=== PATIENT | male | born 1940 | race Caucasian/White ===

== ENCOUNTER 2017-12-16 14:53 | Outpatient (CLI) | payer OTHER ==
--- NOTE | 2017-12-18 13:43 | DEXA Report ---
DEXA SCAN: 12/16/2017 CLINICAL INDICATION: Postmenopausal. TECHNIQUE: Dual energy x-ray absorptiometry (DXA) was performed on a [employer] system. Regions measured are the AP spine, femoral neck, and, if needed, forearm. COMPARISON: None. In accordance with the International Society for Clinical Densitometry (ISCD) guidelines, data from previous exams may be reanalyzed using current recommendations and techniques. This is done to allow a more accurate basis for comparison with the current study. FINDINGS Data for the lumbar spine is as follows: REGION BMD (g/cm/cm) T-SCORE Z-SCORE L1 -- -- -- L2 1.229 -0.1 0.0 L3 1.381 1.2 1.3 L4 1.607 3.1 3.2 L2-L4 1.417 1.5 1.6 NOTE: Evaluable vertebrae are used for classification. Data for the hip is as follows: REGION BMD (g/cm/cm) T-SCORE Z-SCORE Neck 0.766 -2.3 -1.3 TOTAL 0.780 -2.2 -1.6 NOTE: The femoral neck or total proximal femur, whichever is lowest, is used for classification. IMPRESSION WHO CLASSIFICATION BASED ON THE INTERNATIONAL REFERENCE STANDARD IS OSTEOPENIA. FRACTURE RISK IS INCREASED. RECOMMENDATION: Patients with diagnosis of osteoporosis or osteopenia should have regular bone mineral density assessment. For those eligible for Medicare, routine testing is allowed once every 2 years. Testing frequency can be increased for patients who have rapidly progressing disease or for those who are receiving medical therapy to restore bone mass. COMMENT World Health Organization (WHO) definitions for osteoporosis and osteopenia: NORMAL BMD: T-score at 1.0 or higher, fracture risk is low. OSTEOPENIA BMD: T-score between 1.0 and -2.5, fracture risk is increased. OSTEOPOROSIS BMD: T-score at 2.5 or lower, fracture risk high. National Osteoporosis Foundation recommends: 1. Obtain adequate dietary calcium (at least 1200 mg per day) and vitamin D (400 -800 international units per day). 2. Participate, as appropriate, in regular weightbearing and muscle- strengthening exercise. 3. Avoid tobacco use and reduce alcohol and caffeine intake. 4. For more detailed information see the website at www.NOF.org. TD: 12/16/2017 17:42 [facility]Josefina
== END 2017-12-16 14:54 | disposition home or self-care (01) ==
LOC: DI 14:53
PROVIDERS: ATTEND Internal Medicine
DX: M85.88 Other specified disorders of bone density and structure, other site (principal)
CPT/HCPCS: 77080

== ENCOUNTER 2018-01-24 11:18 | Outpatient (CLI) | payer OTHER ==
--- NOTE | 2018-01-26 18:14 | MRI Report ---
EXAM: RIGHT SHOULDER MRI WITHOUT CONTRAST EXAM DATE: 01/24/2018 12:29 PM. CLINICAL HISTORY: PAIN IN RIGHT SHOULDER. COMPARISON: None. TECHNIQUE: Multiplanar, multisequence T1-weighted and fluid-sensitive sequences of the shoulder witho ut contrast. Other: None. FINDINGS: Acromioclavicular Region: The acromion is type II. [id number] degenerative change at the joint with osteophytes and joint effusion. Joint space at the upper limits of normal measuring 0.7 cm. Mild thickening and distortion of the joint capsule. The coracoacromial and coracoclavicular ligaments ar e intact. Minimal subacromial/subdeltoid bursal fluid. Glenohumeral Region: No subluxation. No effusion or loose bodies. Shallow partial-thickness cartilage loss and small anterior osteophytes. The glenohumeral ligaments and joint capsule are unremarkable. Bone Marrow: No fracture or bone lesion. Labrum: Deep partial to full-thickness tear at the posterior superior aspect. Partial-thickness under surface tear extends deep to the biceps tendon anchor. Partial-thickness tearing also extends through out the posterior inferior aspect. Musculature/Rotator Cuff: Moderate supraspinatus tendinopathy. Deep partial-thickness intrasubstance and bursal surface tearing at the insertion of the far anterior fibers. This involves at least 50% of the tendon thickness. Shallow partial-thickness articular surface tear at the central to posterior f ibers. This involves a region measuring 1.7 cm in transverse dimension. This involves less than 50% o f the tendon thickness. Mild infraspinatus tendinopathy. Teres minor tendon is intact. Mild subscapularis tendinopathy with minimal partial thickness undersurface tear at the superior fibe rs. No focal muscle edema. Mild fatty atrophy in the teres minor and latissimus dorsi muscles. These are nonspecific and may be due to old injury and are neurogenic. Biceps Tendon: Mild tachycardia with ill-defined linear focus of fluid sensitive hyperintense signal in the substance of the intra-articular portion. Other: The subcutaneous tissues are unremarkable. IMPRESSION: 1. Moderate supraspinatus tendinopathy with deep partial-thickness intrasubstance and bursal surface tear at the insertion of anterior fibers and shallow partial-thickness articular surface tear at the central to posterior fibers. 2. Mild infraspinatus tendinopathy. 3. Mild subscapularis tendinopathy with minimal partial thickness undersurface tear. 4. Mild biceps tendinopathy with possible intrasubstance tear of the intra-articular portion. 5. Deep partial to full-thickness tear posterior superior labrum. Partial-thickness tear extends deep to the biceps tendon anchor (SLAP tear) as well as into the posterior and inferior aspect. 6. Acromioclavicular joint effusion. A component of this may be degenerative versus sequelae of old g rade 1-2 separation. [facility] MUSCULOSKELETAL RADIOLOGY SECTION Referring Provider Line: [phone] SITE ID: [id number]
== END 2018-01-24 11:19 | disposition home or self-care (01) ==
LOC: DI 11:18
PROVIDERS: ATTEND Family Medicine
DX: S43.491A Other sprain of right shoulder joint, initial encounter (principal); S43.431A Superior glenoid labrum lesion of right shoulder, initial encounter; M75.101 Unspecified rotator cuff tear or rupture of right shoulder, not specified as traumatic; M75.81 Other shoulder lesions, right shoulder; M25.411 Effusion, right shoulder

== ENCOUNTER 2018-05-17 09:16 | Outpatient (CLI) | payer OTHER ==
--- NOTE | 2018-05-18 08:31 | MRI Report ---
Reason: RIGHT ANTERIOR/MEDIAL CHEST WALL PAIN Procedure Date: 05/17/2018 Accession Number: [id number] / [id number] Procedure: MRI - Chest W/O CPT Code: FULL RESULT: EXAM: MRI CHEST WITHOUT CONTRAST EXAM DATE: 05/17/2018 10:49 AM CLINICAL HISTORY: RIGHT ANTERIOR/MEDIAL CHEST WALL PAIN. COMPARISON: Right shoulder MRI 01/24/2018. TECHNIQUE: Multisequence, multiplanar MR examination of the right chest wall performed without the use of intravenous contrast. FINDINGS: Bones/joints: No fractures. No osseous lesions. Glenohumeral and acromioclavicular alignment is normal. Moderate acromioclavicular and mild glenohumeral joint osteoarthrosis is unchanged. There is subchondral edema and marginal osteophyte formation at the right sternoclavicular joint. There is a lesser degree of degenerative change at the left sternoclavicular joint. The costochondral articulations are unremarkable. Muscles/tendons: Suboptimal evaluation of the rotator cuff, which was previously evaluated on the 01/24/2018 right shoulder MRI. Partial thickness tearing of the supraspinatus tendon with moderate tendinosis is grossly unchanged. There is moderate to severe atrophy of the teres major muscle with mild atrophy of the teres minor muscle, unchanged. The musculature is otherwise normal in bulk and signal intensity. No muscle strain or tear. Soft tissues: No masses within the right axilla. Normal-appearing lymph nodes are present. No bursitis. 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 IMPRESSION: 1. Moderate to severe teres major muscle atrophy and mild teres minor muscle atrophy. No discrete mass within the right axilla or quadrilateral space. Consider correlation with cervical spine MRI given the presence of multilevel cervical spondylosis, which is incompletely evaluated on this examination. 2. Partial tearing of the supraspinatus tendon is suboptimally evaluated but appears unchanged from the prior right shoulder MRI. 3. Moderate to severe right sternoclavicular joint degenerative changes. Moderate acromioclavicular joint degenerative changes. Mild glenohumeral joint degenerative changes. [facility]
== END 2018-05-17 09:17 | disposition home or self-care (01) ==
LOC: DI 09:16
PROVIDERS: ATTEND Physical Medicine & Rehabilitation
DX: M62.58 Muscle wasting and atrophy, not elsewhere classified, other site (principal); M75.101 Unspecified rotator cuff tear or rupture of right shoulder, not specified as traumatic; M19.011 Primary osteoarthritis, right shoulder; M47.892 Other spondylosis, cervical region
CPT/HCPCS: 71550

== ENCOUNTER 2020-12-27 22:14 | Outpatient (CLI) | payer OTHER | END 2020-12-27 22:15 | disposition EMS.NT | LOC: EMS 22:14 | DX: R42 Dizziness and giddiness (principal) ==

== ENCOUNTER 2021-01-04 16:29 | Outpatient (CLI) | payer OTHER | END 2021-01-04 16:30 | disposition short-term general hospital (02) | LOC: EMS 16:29 | DX: R31.0 Gross hematuria (principal); R53.1 Weakness; R11.0 Nausea; R06.00 Dyspnea, unspecified | CPT/HCPCS: A0425; A0429 ==

== ENCOUNTER 2021-12-23 16:25 | Outpatient (CLI) | payer OTHER | END 2021-12-23 16:26 | disposition EMS.NT | LOC: EMS 16:25 | DX: R53.83 Other fatigue (principal) ==

== ENCOUNTER 2022-09-26 16:26 | Inpatient (IN) | payer OTHER ==
--- NOTE | 2022-09-26 16:37 | ED Physician Documentation ---
PD HPI HEAD INJURY - Stated complaint Stated Complaint: WEAKNESS/LAC/LOST BALANCE - Chief complaint Chief Complaint: Trauma Hd/Nk - History obtained from History obtained from: Patient, EMS - Additional information Additional information: 82-year-old gentleman with history of cardiac ischemic events in December of last year. He states he was not stented. He has a history of A. fib, stroke, TIA, type 2 diabetes, hypertension, hyperlipidemia. He was admitted here in July 2016 and that history and physical was reviewed. He was hypotensive with unexplained lactic acidosis. He was discharged after 4 days, he was noted to have an EF of 25% at the time. He says he has been weak and off balance for the last 2 days give or take. Started to have some chest pressure today and got dizzy trying to have a bowel movement. He notes he has been constipated for the last couple of days. He could not get off the toilet and his went to help him get off the toilet and he kind of crumpled down. He has an abrasion on the left ear from it and he is on Plavix. He has been dyspneic for a couple of days without cough. Denies pedal edema or calf pain. No headache per se. He is reported to be on Plavix. He was noted by EMS to be orthostatic and on time of arrival has received about 600 mL of normal saline IV. Independent history was taken from EMS as he is quite dyspneic, slightly Obfuscating the history. Review of Systems Constitutional: denies: Fever, Chills Nose: denies: Rhinorrhea / runny nose, Congestion Cardiac: reports: Chest pain / pressure. denies: Palpitations Respiratory: reports: Dyspnea. denies: Cough GI: reports: Constipation. denies: Abdominal Pain PD PAST MEDICAL HISTORY - Past Medical History Cardiovascular: Hypertension, High cholesterol Respiratory: None Endocrine/Autoimmune: Type 2 diabetes GI: None : None HEENT: None Psych: Depression, Post traumatic stress disorder, Claustrophobia Musculoskeletal: None Derm: None - Past Surgical History Past Surgical History: Yes General: Hiatal hernia repair Ortho: Hip replacement Cardiovascular: AAA - Present Medications Home Medications: Ambulatory Orders Medication Instructions Recorded Confirmed Alfuzosin HCl [Alfuzosin HCl ER] 10 mg ORAL DAILY 12/31/15 07/08/16 PARoxetine [Paxil] 20 mg ORAL DAILY 12/31/15 07/08/16 Warfarin [Coumadin] 5 mg ORAL HARRISTMODESTO@1400 12/31/15 07/09/16 Warfarin [Coumadin] 7.5 mg ORAL WE@1400 12/31/15 07/09/16 metFORMIN [Glucophage] 1,000 mg ORAL BID 12/31/15 07/08/16 Atorvastatin Calcium 40 mg PO QPM 05/26/16 07/08/16 Niacin [Niacin ER] 500 mg PO DAILY 05/26/16 07/08/16 lisinopriL [Lisinopril] 2.5 mg PO DAILY 05/26/16 07/08/16 Acetaminophen 1,000 mg PO Q6H PRN 07/09/16 07/09/16 oxyCODONE [Roxicodone] 5 mg PO Q6H PRN 07/09/16 07/09/16 - Allergies Allergies/Adverse Reactions: Allergies Allergy/AdvReac Type Severity Reaction Status Date / Time blood thinner unknown name Allergy Unknown Uncoded 09/26/22 16:30 - Social History Does the pt smoke?: No Smoking Status: Never smoker Does the pt drink ETOH?: Yes Does the pt have substance abuse?: No - Immunizations Immunizations are current?: Yes PD ED PE NORMAL - Vitals Vital signs reviewed: Yes - General General: Alert and oriented X 3, No acute distress - HEENT HEENT: PERRL, EOMI - Neck Neck: Supple, no meningeal sign, No bony TTP - Cardiac Cardiac: Other (Heart sounds muffled by respiratory activity) - Respiratory Respiratory: Other (Tachypneic with slightly diminished but overall clear lungs) - Abdomen Abdomen: Non tender - Back Back: No CVA TTP, No spinal TTP - Derm Derm: Normal color, Warm and dry - Extremities Extremities: Other (Trace pitting pedal edema) - Neuro Neuro: Alert and oriented X 3, Normal speech Results - Vitals Vitals: Vital Signs - 24 hr 09/26/22 09/26/22 09/26/22 16:30 16:50 17:18 Temperature 36.5 C Heart Rate 73 75 69 Respiratory 28 H 21 22 Rate Blood Pressure 100/68 122/73 84/63 L O2 Saturation 94 98 96 If not protocol 3 : Oxygen Flow, liters/minute 09/26/22 09/26/22 09/26/22 17:35 17:51 18:21 Temperature Heart Rate 72 70 67 Respiratory 21 21 23 Rate Blood Pressure 101/57 L 100/61 97/68 O2 Saturation 100 100 99 If not protocol 3 3 3 : Oxygen Flow, liters/minute 09/26/22 09/26/22 09/26/22 18:30 19:00 19:30 Temperature Heart Rate 66 77 65 Respiratory 20 18 24 Rate Blood Pressure 94/64 80/61 L 91/75 O2 Saturation 98 100 100 If not protocol 3 3 3 : Oxygen Flow, liters/minute Oxygen O2 Source Nasal cannula - EKG (time done) 1632 Rate: Rate (enter#) (70) Rhythm: NSR (w pvc) [place]: Normal QRS: Low voltage Ischemia: Normal ST segments - Labs Labs: Laboratory Tests 09/26/22 09/26/22 09/26/22 16:42 16:42 16:42 WBC 7.5 RBC 3.85 L Hgb 12.4 L Hct 38.8 L MCV 100.8 H MCH 32.2 H MCHC 32.0 RDW 12.5 Plt Count 125 L MPV 10.0 Neut # (Auto) 6.2 Lymph # (Auto) 0.5 L [place] # (Auto) 0.8 Eos # (Auto) 0.0 Baso # (Auto) 0.0 Absolute Nucleated RBC 0.00 Nucleated RBC % 0.0 VBG pH VBG pCO2 VBG pO2 VBG HCO3 VBG Total CO2 VBG O2 Saturation VBG Base Excess Sodium 135 Potassium 4.2 Chloride 98 L Carbon Dioxide 26 Anion Gap 11.0 BUN 19 Creatinine 1.2 Estimated GFR (MDRD) 58 L Glucose 181 H Lactic Acid Calcium 8.6 Magnesium 1.7 Total Bilirubin 0.7 AST 37 ALT 27 Alkaline Phosphatase 43 Troponin I High Sens 38.6 H* B-Natriuretic Peptide Total Protein 7.1 Albumin 3.7 Globulin 3.4 Albumin/Globulin Ratio 1.1 Nasal Adenovirus (PCR) Nasal B. parapertussis DNA (PCR) Nasal Coronavir 229E PCR Nasal Coronavir HKU1 PCR Nasal Coronavir NL63 PCR Nasal Coronavir OC43 PCR Nasal Enterovir/Rhinovir PCR Nasal Influenza B PCR Nasal Influenza A PCR Nasal Parainfluen 1 PCR Nasal Parainfluen 2 PCR Nasal Parainfluen 3 PCR Nasal Parainfluen 4 PCR Nasal RSV (PCR) Nasal B.pertussis DNA PCR Nasal C.pneumoniae (PCR) Leroy Human Metapneumo PCR Nasal M.pneumoniae (PCR) Nasal SARS-CoV-2 (PCR) 09/26/22 09/26/22 09/26/22 16:42 16:42 16:42 WBC RBC Hgb Hct MCV MCH MCHC RDW Plt Count MPV Neut # (Auto) Lymph # (Auto) [place] # (Auto) Eos # (Auto) Baso # (Auto) Absolute Nucleated RBC Nucleated RBC % VBG pH 7.338 VBG pCO2 46.2 VBG pO2 20.8 L VBG HCO3 24.3 VBG Total CO2 25.7 VBG O2 Saturation 33.5 L VBG Base Excess -1.8 Sodium Potassium Chloride Carbon Dioxide Anion Gap BUN Creatinine Estimated GFR (MDRD) Glucose Lactic Acid 3.5 H* Calcium Magnesium Total Bilirubin AST ALT Alkaline Phosphatase Troponin I High Sens B-Natriuretic Peptide 348 H Total Protein Albumin Globulin Albumin/Globulin Ratio Nasal Adenovirus (PCR) Nasal B. parapertussis DNA (PCR) Nasal Coronavir 229E PCR Nasal Coronavir HKU1 PCR Nasal Coronavir NL63 PCR Nasal Coronavir OC43 PCR Nasal Enterovir/Rhinovir PCR Nasal Influenza B PCR Nasal Influenza A PCR Nasal Parainfluen 1 PCR Nasal Parainfluen 2 PCR Nasal Parainfluen 3 PCR Nasal Parainfluen 4 PCR Nasal RSV (PCR) Nasal B.pertussis DNA PCR Nasal C.pneumoniae (PCR) Leroy Human Metapneumo PCR Nasal M.pneumoniae (PCR) Nasal SARS-CoV-2 (PCR) 09/26/22 09/26/22 16:43 18:45 WBC RBC Hgb Hct MCV MCH MCHC RDW Plt Count MPV Neut # (Auto) Lymph # (Auto) [place] # (Auto) Eos # (Auto) Baso # (Auto) Absolute Nucleated RBC Nucleated RBC % VBG pH VBG pCO2 VBG pO2 VBG HCO3 VBG Total CO2 VBG O2 Saturation VBG Base Excess Sodium Potassium Chloride Carbon Dioxide Anion Gap BUN Creatinine Estimated GFR (MDRD) Glucose Lactic Acid Calcium Magnesium Total Bilirubin AST ALT Alkaline Phosphatase Troponin I High Sens 131.7 H* B-Natriuretic Peptide Total Protein Albumin Globulin Albumin/Globulin Ratio Nasal Adenovirus (PCR) NOT DETECTED Nasal B. parapertussis DNA (PCR) NOT DETECTED Nasal Coronavir 229E PCR NOT DETECTED Nasal Coronavir HKU1 PCR NOT DETECTED Nasal Coronavir NL63 PCR NOT DETECTED Nasal Coronavir OC43 PCR NOT DETECTED Nasal Enterovir/Rhinovir PCR NOT DETECTED Nasal Influenza B PCR NOT DETECTED Nasal Influenza A PCR NOT DETECTED Nasal Parainfluen 1 PCR NOT DETECTED Nasal Parainfluen 2 PCR NOT DETECTED Nasal Parainfluen 3 PCR NOT DETECTED Nasal Parainfluen 4 PCR NOT DETECTED Nasal RSV (PCR) NOT DETECTED Nasal B.pertussis DNA PCR NOT DETECTED Nasal C.pneumoniae (PCR) NOT DETECTED Leroy Human Metapneumo PCR NOT DETECTED Nasal M.pneumoniae (PCR) NOT DETECTED Nasal SARS-CoV-2 (PCR) DETECTED A - Rads (name of study) CT of the head showing remote right parietal MCA infarct and atrophy without acute abnormality Radiology: Final report received, EMP read indepedently CT of the cervical spine demonstrates degenerative changes and multilevel disc disease without trauma Radiology: Final report received, EMP read indepedently 1 cm right upper lobe nodule on CT angio chest, no other significant abnormality. Radiology: Final report received, EMP read indepedently PD Medical Decision Making - ED course ED course: This is an 82-year-old gentleman presents with weakness, hypotension, dyspnea. He appears ill and is tachypneic. That said his lungs are relatively clear albeit a bit diminished. He did have trauma with a scrape on his left ear and he is on Plavix. As such a CT of the head and neck were done without traumatic findings. Given the dyspnea, CT angiography of the chest was done and negative as well. Although he does have a pulmonary nodule. Follow-up for that was advised. Work-up otherwise shows a CBC showing mild microcytic anemia. Normal venous blood gas. Chemistries showing hyperglycemia at 181. Troponin elevated at 38.6 and will repeat. Modestly elevated BNP at 348. Lactic acidosis at 3.5. Respiratory panel positive for COVID. He is very weak and cannot walk and given the above findings will plan to admit. That said currently there are no beds available in the hospital and he is boarding for admission at this time. We will start paxlovid in the interim. However staffing improved And I was able to discuss the case briefly with Dr. Varela before shift change. This is in light of the rising troponin. She feels he can safely be admitted here medically managed given that it is likely type II/demand ischemia. And subsequently spoke with Dr. Islas, the telemetry hospitalist at 7:45 PM for admission. Departure - Departure Disposition: 66 [facility] DC/Xfer Clinical Impression: Weakness, Lactic acidosis, COVID, Pulmonary nodule, NSTEMI (non-ST elevated myocardial infarction) Head injury Qualifiers: Encounter type: initial encounter Qualified Code(s): S09.90XA - Unspecified injury of head, initial encounter Dyspnea Qualifiers: Dyspnea type: shortness of breath Qualified Code(s): R06.02 - Shortness of breath Hypotension Qualifiers: Hypotension type: other hypotension type Qualified Code(s): I95.89 - Other hypotension Condition: Serious Comments: On the CAT scan of the chest he had a 1 cm right upper lobe pulmonary nodule. Talk with your doctor about repeat imaging to assess.
[2022-09-26] MEDS ORDERED: iohexoL-300 100 ML VIAL ONE (16:44)
[2022-09-26 16:47] LABS: BASOPHILS % (AUTO) 0.4 %; HCT - HEMATOCRIT 38.8 % (42.0-52.0); HGB - HEMOGLOBIN 12.4 g/dL (14.0-18.0); LYMPHOCYTES # (AUTO) 0.5 10^3/uL (1.5-3.5); LYMPHOCYTES % (AUTO) 6.1 %; MEAN CORPUSCULAR HEMOGLOBIN 32.2 pg (27.0-31.0); MEAN CORPUSCULAR VOLUME 100.8 fL (80.0-94.0); MONOCYTES # (AUTO) 0.8 10^3/uL (0.0-1.0); MONOCYTES % (AUTO) 10.1 %; NEUTROPHILS # (AUTO) 6.2 10^3/uL (1.5-6.6); NEUTROPHILS % (AUTO) 82.9 %; PLT - PLATELET COUNT 125 10^3/uL (130-450); RED BLOOD COUNT 3.85 10^6/uL (4.70-6.10); RED CELL DISTRIBUTION WIDTH 12.5 % (12.0-15.0); WHITE BLOOD COUNT 7.5 x10^3/uL (4.8-10.8)
[2022-09-26 16:54] LABS: VBG PH 7.338 (7.31-7.41)
[2022-09-26 16:55] LABS: VBG BASE EXCESS -1.8 mmol/L (-2 - +2); VBG HCO3 24.3 mmol/L (23-28); VBG OXYGEN SATURATION 33.5 % (60-80); VBG PCO2 46.2 mmHg (41-51); VBG PO2 20.8 mmHg (25-47); VBG TOTAL CO2 25.7 mmol/L (24-29)
[2022-09-26 16:59] LABS: ALBUMIN 3.7 g/dL (3.2-5.5); ALBUMIN/GLOBULIN RATIO 1.1 (1.0-2.2); BILIRUBIN,TOTAL 0.7 mg/dL (0.2-1.0); CALCIUM 8.6 mg/dL (8.5-10.3); CREATININE 1.2 mg/dL (0.6-1.2); MAGNESIUM 1.7 mg/dL (1.7-2.8); POTASSIUM 4.2 mmol/L (3.5-5.0); TOTAL PROTEIN 7.1 g/dL (6.7-8.2)
[2022-09-26] MEDS ORDERED: SODIUM CHLORIDE 0.9% 1,000 ML IV STA (17:10)
[2022-09-26 17:39] LABS: CORONAVIRUS 229E-RESP PCR NOT DETECTED; CORONAVIRUS HKU1-RESP PCR NOT DETECTED; CORONAVIRUS NL63-RESP PCR NOT DETECTED; CORONAVIRUS OC43-RESP PCR NOT DETECTED
[2022-09-26 17:40] LABS: B. PARAPERTUSSIS- RESP PCR PAN NOT DETECTED; B. PERTUSSIS- RESP PCR PANEL NOT DETECTED; C. PNEUMONIAE- RESP PCR PANEL NOT DETECTED; HUMAN METAPNEUMOVIRUS NOT DETECTED; INFLUENZA A- RESP PCR PANEL NOT DETECTED; INFLUENZA B - RESP PCR PANEL NOT DETECTED; M. PNEUMONIAE- RESP PCR PANEL NOT DETECTED; PARAINFLUENZA VIRUS 1 NOT DETECTED; PARAINFLUENZA VIRUS 2 NOT DETECTED; PARAINFLUENZA VIRUS 3 NOT DETECTED; PARAINFLUENZA VIRUS 4 NOT DETECTED; RHINOVIRUS/ENTEROVIRUS NOT DETECTED; RSV- RESP PCR PANEL NOT DETECTED; SARS-CoV-2 -RESP PCR PANEL DETECTED
--- NOTE | 2022-09-26 18:20 | CT Report ---
PROCEDURE: HEAD WO INDICATIONS: head inj TECHNIQUE: Noncontrast 4.5 mm thick angled axial sections acquired from the foramen magnum to the vertex. For r adiation dose reduction, the following was used: automated exposure control, adjustment of mA and/or kV according to patient size. COMPARISON: 05/25/2016 FINDINGS: Image quality: Excellent. CSF spaces: Basal cisterns are patent. No extra-axial fluid collections. Ventricles are normal in size and shape. Brain: No midline shift. No intracranial masses or hemorrhage. There is cerebral atrophy. Remote in farcts involving the right hemisphere in an MCA distribution are seen. Skull and face: Calvarium and visualized facial bones are intact, without suspicious lesions. Sinuses: Visualized sinuses and mastoids are clear. IMPRESSION: 1. No acute intracranial abnormality. 2. Remote right parietal lobe infarcts in an MCA distribution. 3. Diffuse cerebral atrophy. Reviewed by: Edgar Miramontes on 09/26/2022 6:19 PM [facility] Approved by: Edgar Miramontes on 09/26/2022 6:19 PM [facility] Station ID: [id number]
--- NOTE | 2022-09-26 18:24 | CT Report ---
PROCEDURE: CERVICAL SPINE WO INDICATIONS: head inj TECHNIQUE: Noncontrast 3 mm thick sections acquired from the skull base to the T4 level. Sagittal and coronal r eformats were then constructed. For radiation dose reduction, the following was used: automated exp osure control, adjustment of mA and/or kV according to patient size. COMPARISON: None. FINDINGS: Image quality: Excellent. Bones: No fractures or dislocations. Visualized superior ribs are intact. Multilevel degenerative changes and degenerative disc disease. Soft tissues: Prevertebral soft tissues are normal in thickness. No paravertebral hematomas. 1 cm n odule in the right upper lobe anteromedially. See separately dictated CT of the chest. IMPRESSION: 1. No acute traumatic abnormality of the cervical spine. 2. 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 Reviewed by: Edgar Miramontes on 09/26/2022 6:23 PM [facility] Approved by: Edgar Miramontes on 09/26/2022 6:23 PM [facility] Station ID: [id number]
--- NOTE | 2022-09-26 18:30 | CT Report ---
PROCEDURE: ANGIO CHEST W/WO INDICATIONS: Dyspnea, PE protocol CONTRAST: 80mL Omni 300 TECHNIQUE: After the administration of intravenous contrast, 2 mm axial images were acquired from the pulmonary apices to the posterior costophrenic angles during the arterial phase. In addition, 1 mm lung kernel and 5 mm soft tissue kernel reconstructions were performed. 3-dimensional coronal oblique maximum int ensity projection (MIP) reformats, 8 mm axial MIP, and 5 mm coronal and sagittal MPR reformats were t hen performed through the thorax. For radiation dose reduction, the following was used: automated exp osure control, adjustment of mA and/or kV according to patient size. COMPARISON: None FINDINGS: Image quality: Excellent. Pulmonary arteries: Pulmonary arteries are normal in size, and demonstrate no intraluminal filling d efects to suggest central pulmonary embolism. Aorta: The aorta is not opacified but has a normal caliber. The aorta has diffuse atherosclerotic alejandra cifications. Lungs and pleura: Lungs are clear. 1 cm nodule in the right upper lobe anteromedially series 6 image 99. No pleural effusions or pneumothorax. Central and peripheral airways are patent. Mediastinum: Heart size is normal, without pericardial effusion bibasilar atelectasis.. No mediasti nal or hilar adenopathy. Thoracic aorta is normal in caliber and enhancement. Esophagus is normal i n caliber, without hiatal hernia. Bones and chest wall: No suspicious bony lesions. There is a remote compression fracture of L2. Rib s and thoracic spine appear intact throughout. No axillary or supraclavicular adenopathy. The thyro id is normal in size and there are no incidental findings. Abdomen: Visualized upper abdominal solid organs appear normal in the early arterial phase of enhanc ement. IMPRESSION: 1. No acute traumatic abnormality of the chest. 2. 1 cm nodule in the right upper lobe anteromedially. If high risk, recommend PET/CT, otherwise akira mmend follow-up CT in 3 months. Reviewed by: Edgar Miramontes on 09/26/2022 6:29 PM PST Approved by: Edgar Miramontes on 09/26/2022 6:29 PM PST Station ID: [id number]
[2022-09-26] MEDS ORDERED: NIRMATRELVIR/RITONAVIR PREPACK PO STA (18:41)
[2022-09-26] MEDS ORDERED: ASPIRIN 325 MG TABLET PO STA (19:24)
[2022-09-26] MEDS ORDERED: ENOXAPARIN 100 MG/ML SYRINGE SUBQ STA (19:24)
[2022-09-26] MEDS ORDERED: ALBUTEROL NEB 2.5 MG/3 ML INH STA (19:54)
--- NOTE | 2022-09-26 20:15 | HISTORY & PHYSICAL EXAMINATION ---
Chief Complaint - Chief Complaint Chief Complaint: fall, chest pressure, shortness of breath History of Present Illness - Admitted From Admitted From:: home - History Obtained From History obtained from: patient - History of Present Illness HPI Comment/Other: Mr Khan is an 82 yo M with hx CAD, CHF (per report EF 25% in 2016), HLD. Presents to ER with c/o weakness, unable to stand from using bathroom. Feeling dizzy and lightheaded with chest pressure earlier today. Pt denies any chest pain at this time, reports some chest discomfort with deep inspiration. States that he has been feeling progressively short of breath over the past 2-3 days, worse with activity. Denies fevers, chills, cough, sputum production. Denies sick contacts. Reports he has been vaccinated against COVID. Does not use home O2. Pt reports he was taken off of coumadin years ago, unsure why he was on it. He does not take ASA or plavix. States he was advised to take tylenol only. Denies any history of bleeding complications or renal disease. History - Past Medical History Cardiovascular: reports: Hypertension, High cholesterol Respiratory: reports: None GI: reports: None : reports: None HEENT: reports: None Psych: reports: Depression, Post traumatic stress disorder, Claustrophobia Musculoskeletal: reports: None Derm: reports: None MRSA Hx?: No - Past Surgical History General: reports: Hiatal hernia repair Ortho: reports: Hip replacement Cardiovascular: reports: AAA Meds/Allgy - Home Medications Home Medications: Ambulatory Orders Medication Instructions Recorded Confirmed Alfuzosin HCl [Alfuzosin HCl ER] 10 mg ORAL DAILY 12/31/15 07/08/16 PARoxetine [Paxil] 20 mg ORAL DAILY 12/31/15 07/08/16 Warfarin [Coumadin] 5 mg ORAL SUMOTUTHFRSA@1400 12/31/15 07/09/16 Warfarin [Coumadin] 7.5 mg ORAL WE@1400 12/31/15 07/09/16 metFORMIN [Glucophage] 1,000 mg ORAL BID 12/31/15 07/08/16 Atorvastatin Calcium 40 mg PO QPM 05/26/16 07/08/16 Niacin [Niacin ER] 500 mg PO DAILY 05/26/16 07/08/16 lisinopriL [Lisinopril] 2.5 mg PO DAILY 05/26/16 07/08/16 Acetaminophen 1,000 mg PO Q6H PRN 07/09/16 07/09/16 oxyCODONE [Roxicodone] 5 mg PO Q6H PRN 07/09/16 07/09/16 - Allergies Allergies/Adverse Reactions: Allergies Allergy/AdvReac Type Severity Reaction Status Date / Time blood thinner unknown name Allergy Unknown Uncoded 09/26/22 16:30 Review of Systems - Constitutional Constitutional: reports: Fatigue, Weakness. denies: Fever, Chills - Cardiovascular Cariovascular: denies: Palpitations, Chest pain (chest pressure), Edema, Syncope - Respiratory Respiratory: reports: SOB at rest, SOB with exertion. denies: Cough, Sputum production, Wheezing - Gastrointestinal Gastrointestinal: reports: Constipation. denies: Abdominal pain, Nausea, Vomiting - Neurological Neurological: reports: General weakness - All Other Systems All Other Systems: reports: Reviewed and negative Exam - Vital Signs Reviewed Vital Signs: Yes Vital Signs: Vital Signs x48h Temp Pulse Resp BP Pulse Ox O2 Flow Rate 09/26/22 19:30 65 24 91/75 100 3 09/26/22 19:00 77 18 80/61 L 100 3 09/26/22 18:30 66 20 94/64 98 3 09/26/22 18:21 67 23 97/68 99 3 09/26/22 17:51 70 21 100/61 100 3 09/26/22 17:35 72 21 101/57 L 100 3 09/26/22 17:18 69 22 84/63 L 96 3 09/26/22 16:50 75 21 122/73 98 09/26/22 16:30 36.5 C 73 28 H 100/68 94 - Physical Exam General Appearance: positive: Mild distress Eyes Bilateral: positive: Normal inspection ENT: positive: ENT inspection nml Neck: positive: Nml inspection Respiratory: positive: Other (unable to complete resp exam via telemedicine, pt w mild resp distress and able to speak in full sentences, no audible wheezing) Skin: positive: Color nml, No rash Extremities: positive: No pedal edema (per patient) Neurologic/Psychiatric: positive: Oriented x3, Motor nml, Mood/affect nml Conclusion/Plan - Lab Results Lab results reviewed: Yes Fish Bones: 09/26/22 16:42 09/26/22 16:42 - Other Other Results/Comments: NSTEMI -History of systolic CHF, EF 25% on echo 2016, reportedly ischemic event last year did not require PCI -ER physician has consulted kiln burner Dr Varela, suspect demand ischemia in setting of hypotension, acute infection, recommend ASA and anticoagulation -EKG NSR no ST-T changes -Pt received Lovenox therapeutic dose in ER, continue -ASA 325 mg administered in ER, continue -Echo, ordered *Pt states he has been advised to take Tylenol and avoid ASA/Plavix - rec further consultation with his kiln burner at the [facility] regarding antiplatelet therapy COVID 19 infection -CTA neg for PE, no evidence of infiltrate/consolidation, no pulm vasc congestion -O2 sats 100% on 3 L NC - wean off as tolerated -DuoNebs PRN -Supportive care Lactic acidosis -In setting of hypotension at admission, improved with IV fluids -Hx lactic acidosis unknown etiology in 2016 -Trend labs *Pt home med rec is pending, he is unaware of his home meds has requested his to bring updated list Code status: DNR, verified with patient no intubation or CPR Core Measures - Anticipated LOS I expect patient to be DC'd or transferred within 96 hours.: Yes - DVT/VTE - Prophylaxis VTE/DVT Device ordered at admit?: Yes - AMI - Statin at Admit Aspirin Prescribed on Admit: Yes Telemedicine Consult Details - Provider Location & Consult Time Telemedicine consultation conducted via videoconferencing?: Yes
[2022-09-26] MEDS ORDERED: ONDANSETRON 4 MG/2 ML VIAL IVP PRN (20:29)
[2022-09-26] MEDS ORDERED: SODIUM CHLORIDE FLUSH 0.9% 10 ML SYRINGE IVP PRN (20:29)
[2022-09-26] MEDS ORDERED: iohexoL-300 100 ML VIAL IVP ONE (20:33)
[2022-09-27] MEDS: HYDROmorphone 0.5 MG/0.5 ML SYRINGE IVP PRN ×2 (01:17→05:43)
[2022-09-27] MEDS: SODIUM CHLORIDE FLUSH 0.9% 10 ML SYRINGE IVP SCH ×4 (01:17→23:32)
[2022-09-27 05:13] LABS: BASOPHILS % (AUTO) 0.3 %; HCT - HEMATOCRIT 35.5 % (42.0-52.0); HGB - HEMOGLOBIN 11.3 g/dL (14.0-18.0); LYMPHOCYTES # (AUTO) 0.8 10^3/uL (1.5-3.5); MEAN CORPUSCULAR HEMOGLOBIN 32.4 pg (27.0-31.0); MEAN CORPUSCULAR HGB CONC 31.8 g/dL (32.0-36.0); MEAN CORPUSCULAR VOLUME 101.7 fL (80.0-94.0); MEAN PLATELET VOLUME 10.2 fL (7.4-11.4); MONOCYTES # (AUTO) 0.8 10^3/uL (0.0-1.0); MONOCYTES % (AUTO) 13.5 %; NEUTROPHILS # (AUTO) 4.3 10^3/uL (1.5-6.6); NEUTROPHILS % (AUTO) 71.9 %; PLT - PLATELET COUNT 111 10^3/uL (130-450); RED BLOOD COUNT 3.49 10^6/uL (4.70-6.10); RED CELL DISTRIBUTION WIDTH 12.8 % (12.0-15.0)
[2022-09-27 05:23] LABS: CALCIUM 8.2 mg/dL (8.5-10.3); CREATININE 1.1 mg/dL (0.6-1.2); POTASSIUM 3.7 mmol/L (3.5-5.0)
[2022-09-27] MEDS: ENOXAPARIN 100 MG/ML SYRINGE SUBQ SCH ×2 (07:27→18:54)
[2022-09-27] MEDS: ACETAMINOPHEN 325 MG TABLET PO PRN ×3 (10:22→18:53)
[2022-09-27] MEDS ORDERED: DEXAMETHASONE 20 MG/5 ML VIAL IVP ONE (10:43)
[2022-09-27] MEDS ORDERED: REMDESIVIR 100MG VIAL 200 MG in SODIUM CHLORIDE 0.9% 250 ML IV ONE ×2 (11:00→13:00)
[2022-09-27 11:05] LABS: INR 1.2 (0.8-1.2); PT - PROTHROMBIN TIME 13.5 secs (9.9-12.6)
[2022-09-27] MEDS ORDERED: DEXAMETHASONE 4 MG/ML VIAL IVP ONE (13:00)
--- NOTE | 2022-09-27 13:13 | PROVIDER PROGRESS NOTE ---
Assessment/Plan - Problem List (1) NSTEMI (non-ST elevated myocardial infarction) Assessment/Plan: Records were reviewed. This patient has a Hx of systolic CHF, EF 25% on Echo in 2016. He had an WI last year, did not undergo angio or did not require PCI by angio. He was on Plavix. He did have recent chest pain and dyspnea. His labs are all reviewed. Troponins continue to increase: 38>> 131>> 266 this a.m. The ER EKG showed NSR, low voltage and no ST or T wave changes. EKG repeated today (which I interpreted) shows NSR, the same low voltage and new symmetric anterolateral T wave inversions consistent with an acute anterolateral WI. Plan: He was put on Lovenox therapeutic dose at admission, will continue this for another day ASA 325 mg administered in ER, will now continue 1 baby aspirin daily. Continue Plavix if he was on that, awaiting reconciled med list Continue his statin We will check lipids and treat per guidelines Hope to continue beta-allison but his BP is low, and med list has not yet been reconciled, from the OR Echo ordered, but we have no Echo service here until Friday of next week (today is Friday). Because of the patient's active COVID infection, he is not a candidate to be transferred for coronary angiogram currently. I will try to reach out to his fountain supervisor to confirm that he did have an angiogram in 2020 and whether another angiogram would benefit him. Will try to obtain the angiogram report done at OR in [place] in 2021 I discussed this entire plan with patient, and daughter and son-in-law were at bedside and the (2) Acute respiratory failure with hypoxia He was dyspneic at home. In the ER last night, he was desaturating to 85% on room air, per Dr Godfrey report to me, but that was not documented. His CTA was neg for PE, no evidence of infiltrate/consolidation, no pulm vasc congestion. He has never been told he has COPD or emphysema, despite his lung exam sounding tight. But he is COVID positive O2 sats were better on 3 L NC. Overnight he has needed that increased to be on 4 L O2 Plan: Continue supplemental O2 Continue any hand held inhaler Will treat the underlying Dx (3) COVID 19 pneumonia Plan: Isolation has been ordered Remdesivir to continue Decadron 6 mg IV daily to continue Mucinex for pulmonary toilet Continue IS (4) Chronic systolic heart failure As per history with Echo from 2015 showing EF of 25%. He also remembered that when he had the angiogram in 2021, his EF was about 30% Plan: Avoid over hydration Continue with his usual CHF meds, holding parameters if low BP Echo ordered, but we have no Echo service here until Friday of next week (today is Friday). (5) Fall at home He could not get off the toilet and his went to help him get off the toilet and he kind of crumpled down. He has an abrasion on the left ear from it. He was noted by EMS to be orthostatic and on time of arrival has received about 600 mL of normal saline IV. Plan: We will continue to monitor orthostatic vital signs, and treat the causes (6) Orthostatic hypotension He was noted by EMS to be orthostatic and by time of arrival had 600 cc iv fluids given. Since admission, syst blood pressures have been in the 90s to 100 Plan: Will continue to give slow IV hydration with NS, watching I's and O's carefully for pulmonary edema Will follow orthostatic vital signs daily Meds that can drop his blood pressure will have holding parameters. Will start PT and OT probably tomorrow, if orthostasis has improved. He uses a walker all the time, he reported (7) DM According to his chart records, he is a diabetic, takes metformin at home, by old med list. Plan: We will change his cardiac diet to a cardiac and diabetic diet Will order hypoglycemia protocol, glucose fingerstick checks and sliding scale insulin coverage and obtain his A1c (8) Lactic acidosis Resolved today after IV fluids Probably from hypotension at admission. He also has a Hx of lactic acidosis unknown etiology in 2016 - Current Meds Current Meds: Current Medications Generic Name Dose Route Start Last Admin Trade Name Freq PRN Reason Stop Dose Admin Acetaminophen 650 mg 09/26/22 20:29 09/27/22 10:22 Acetaminophen 325 Mg Tablet PO 650 mg Q4HR PRN Administration Pain 1 to 4, or Fever Enoxaparin Sodium 100 mg 09/27/22 07:00 09/27/22 07:27 Enoxaparin 100 Mg/Ml Syringe SUBQ 100 mg Q12H CATE Administration Hydromorphone HCl 0.2 mg 09/27/22 00:42 09/27/22 05:43 Hydromorphone 0.5 Mg/0.5 Ml Syringe IVP 0.2 mg Q4H PRN Administration PAIN Sodium Chloride 10 ml 09/27/22 01:00 09/27/22 07:28 Sodium Chloride Flush 0.9% 10 Ml Syringe IVP 10 ml 0100,0900,1700 CATE Administration - Lab Result Fish Bone Diagrams: 09/27/22 04:53 09/27/22 04:53 - EKG Results EKG Interpreted Independently: Yes EKG Comparison: Changed from prior EKG EKG Findings: Normal sinus rhythm, rate 64, low voltage EKG, borderline first-degree block, IVCD, symmetrical inverted anterolateral T wave inversions, these are new since EKG from yesterday. - Additional Planning My Orders: My Active Orders 09/27/22 10:44 Telemetry- [RC] Q4HR 09/27/22 11:50 EKG - Electrocardiogram [RC] .ONCE 09/27/22 13:00 Remdesivir 100Mg Vial [Veklury] 200 mg Sodium Chloride 0.9% [Normal Saline 0.9%] 250 ml IV ONCE 09/28/22 05:00 BMP - BASIC METABOLIC PANEL [CHEM] DAILYLAB CBC - COMP BLD CT W/AUTO DIFF [HEME] DAILYLAB 09/28/22 09:00 Remdesivir 100Mg Vial [Veklury] 100 mg Sodium Chloride 0.9% 100Ml [Normal Saline 0.9% 100Ml] 100 ml IV DAILY dexAMETHasone [Decadron] 6 mg IVP DAILY 09/29/22 05:00 BMP - BASIC METABOLIC PANEL [CHEM] DAILYLAB CBC - COMP BLD CT W/AUTO DIFF [HEME] DAILYLAB 09/30/22 05:00 BMP - BASIC METABOLIC PANEL [CHEM] DAILYLAB CBC - COMP BLD CT W/AUTO DIFF [HEME] DAILYLAB 10/01/22 05:00 BMP - BASIC METABOLIC PANEL [CHEM] DAILYLAB CBC - COMP BLD CT W/AUTO DIFF [HEME] DAILYLAB Subjective - Subjective Patient Reports: Feeling Better (Glad to sit up and dangle. Says he is much less SOB. Wearing O2 per n.c.) Objective Vital Signs: Vital Signs - 24 hr 09/26/22 09/26/22 09/26/22 16:30 16:50 17:18 Temperature 36.5 C Heart Rate 73 75 69 Heart Rate [ Brachial] Respiratory 28 H 21 22 Rate Blood Pressure 100/68 122/73 84/63 L Blood Pressure [Left Brachial artery] Blood Pressure [Right Brachial artery] O2 Saturation 94 98 96 If not protocol 3 : Oxygen Flow, liters/minute 09/26/22 09/26/22 09/26/22 17:35 17:51 18:21 Temperature Heart Rate 72 70 67 Heart Rate [ Brachial] Respiratory 21 21 23 Rate Blood Pressure 101/57 L 100/61 97/68 Blood Pressure [Left Brachial artery] Blood Pressure [Right Brachial artery] O2 Saturation 100 100 99 If not protocol 3 3 3 : Oxygen Flow, liters/minute 09/26/22 09/26/22 09/26/22 18:30 19:00 19:30 Temperature Heart Rate 66 77 65 Heart Rate [ Brachial] Respiratory 20 18 24 Rate Blood Pressure 94/64 80/61 L 91/75 Blood Pressure [Left Brachial artery] Blood Pressure [Right Brachial artery] O2 Saturation 98 100 100 If not protocol 3 3 3 : Oxygen Flow, liters/minute 09/26/22 09/26/22 09/26/22 20:30 21:01 21:20 Temperature 37.0 C Heart Rate 73 78 Heart Rate [ 73 Brachial] Respiratory 20 16 24 Rate Blood Pressure 103/73 Blood Pressure [Left Brachial artery] Blood Pressure 121/80 [Right Brachial artery] O2 Saturation 93 99 If not protocol 3 3 4 : Oxygen Flow, liters/minute 09/26/22 09/26/22 09/27/22 21:45 23:25 00:00 Temperature 37.1 C Heart Rate Heart Rate [ 68 Brachial] Respiratory 24 Rate Blood Pressure Blood Pressure 97/61 [Left Brachial artery] Blood Pressure [Right Brachial artery] O2 Saturation 97 If not protocol 4 4 4 : Oxygen Flow, liters/minute 09/27/22 09/27/22 09/27/22 04:49 05:24 08:00 Temperature 37.9 C 37.3 C 37.8 C Heart Rate Heart Rate [ 68 63 Brachial] Respiratory 20 20 Rate Blood Pressure Blood Pressure 96/60 [Left Brachial artery] Blood Pressure 96/59 L [Right Brachial artery] O2 Saturation 98 98 If not protocol 4 4 : Oxygen Flow, liters/minute 09/27/22 10:24 Temperature Heart Rate Heart Rate [ 64 Brachial] Respiratory 22 Rate Blood Pressure Blood Pressure [Left Brachial artery] Blood Pressure 104/69 [Right Brachial artery] O2 Saturation 96 If not protocol 2 : Oxygen Flow, liters/minute Oxygen O2 Source Nasal cannula I&O (Last 24 Hrs): Intake and Output Totals x24h 09/25/22 09/26/22 09/27/22 23:59 23:59 23:59 Intake Total 1100 120 Balance 1100 120 General: Alert, Oriented x3 HEENT: PERRLA, Mucous membr. moist/pink, Other (wearing O2 per n.c.) Neck: Supple, No JVD Neuro: Alert, Non Focal, Other (Responses take a while, and memory is poor. S[place]) Cardiovascular: No murmurs Respiratory: Rhonchi, Other (Diminished air mvm posteriorly, R worse than L.) Abdomen: Normal bowel sounds, Soft Extremities: No clubbing, No edema - Results Results: Laboratory Results WBC 6.0 x10^3/uL (4.8-10.8) 09/27/22 04:53 RBC 3.49 10^6/uL (4.70-6.10) L 09/27/22 04:53 Hgb 11.3 g/dL (14.0-18.0) L 09/27/22 04:53 Hct 35.5 % (42.0-52.0) L 09/27/22 04:53 MCV 101.7 fL (80.0-94.0) H 09/27/22 04:53 MCH 32.4 pg (27.0-31.0) H 09/27/22 04:53 MCHC 31.8 g/dL (32.0-36.0) L 09/27/22 04:53 RDW 12.8 % (12.0-15.0) 09/27/22 04:53 Plt Count 111 10^3/uL (130-450) L 09/27/22 04:53 MPV 10.2 fL (7.4-11.4) 09/27/22 04:53 Neut # (Auto) 4.3 10^3/uL (1.5-6.6) 09/27/22 04:53 Lymph # (Auto) 0.8 10^3/uL (1.5-3.5) L 09/27/22 04:53 [place] # (Auto) 0.8 10^3/uL (0.0-1.0) 09/27/22 04:53 Eos # (Auto) 0.0 10^3/uL (0.0-0.7) 09/27/22 04:53 Baso # (Auto) 0.0 10^3/uL (0.0-0.1) 09/27/22 04:53 Absolute Nucleated RBC 0.00 x10^3/uL 09/27/22 04:53 Nucleated RBC % 0.0 /100WBC 09/27/22 04:53 PT 13.5 secs (9.9-12.6) H 09/27/22 10:52 INR 1.2 (0.8-1.2) 09/27/22 10:52 VBG pH 7.338 (7.31-7.41) 09/26/22 16:42 VBG pCO2 46.2 mmHg (41-51) 09/26/22 16:42 VBG pO2 20.8 mmHg (25-47) L 09/26/22 16:42 VBG HCO3 24.3 mmol/L (23-28) 09/26/22 16:42 VBG Total CO2 25.7 mmol/L (24-29) 09/26/22 16:42 VBG O2 Saturation 33.5 % (60-80) L 09/26/22 16:42 VBG Base Excess -1.8 mmol/L (-2 - +2) 09/26/22 16:42 Sodium 137 mmol/L (135-145) 09/27/22 04:53 Potassium 3.7 mmol/L (3.5-5.0) 09/27/22 04:53 Chloride 101 mmol/L (101-111) 09/27/22 04:53 Carbon Dioxide 25 mmol/L (21-32) 09/27/22 04:53 Anion Gap 11.0 (6-13) 09/27/22 04:53 BUN 22 mg/dL (6-20) H 09/27/22 04:53 Creatinine 1.1 mg/dL (0.6-1.2) 09/27/22 04:53 Estimated GFR (MDRD) 64 (>89) L 09/27/22 04:53 Glucose 114 mg/dL (70-100) H 09/27/22 04:53 Lactic Acid 1.3 mmol/L (0.5-2.2) 09/27/22 10:52 Calcium 8.2 mg/dL (8.5-10.3) L 09/27/22 04:53 Magnesium 1.7 mg/dL (1.7-2.8) 09/26/22 16:42 Total Bilirubin 0.7 mg/dL (0.2-1.0) 09/26/22 16:42 AST 37 IU/L (10-42) 09/26/22 16:42 ALT 27 IU/L (10-60) 09/26/22 16:42 Alkaline Phosphatase 43 IU/L (42-121) 09/26/22 16:42 Troponin I High Sens 266.6 ng/L (2.3-19.7) H* 09/27/22 10:52 B-Natriuretic Peptide 348 pg/mL (5-100) H 09/26/22 16:42 Total Protein 7.1 g/dL (6.7-8.2) 09/26/22 16:42 Albumin 3.7 g/dL (3.2-5.5) 09/26/22 16:42 Globulin 3.4 g/dL (2.1-4.2) 09/26/22 16:42 Albumin/Globulin Ratio 1.1 (1.0-2.2) 09/26/22 16:42 Nasal Adenovirus (PCR) NOT DETECTED 09/26/22 16:43 Nasal B. parapertussis DNA (PCR) NOT DETECTED 09/26/22 16:43 Nasal Coronavir 229E PCR NOT DETECTED 09/26/22 16:43 Nasal Coronavir HKU1 PCR NOT DETECTED 09/26/22 16:43 Nasal Coronavir NL63 PCR NOT DETECTED 09/26/22 16:43 Nasal Coronavir OC43 PCR NOT DETECTED 09/26/22 16:43 Nasal Enterovir/Rhinovir PCR NOT DETECTED 09/26/22 16:43 Nasal Influenza B PCR NOT DETECTED 09/26/22 16:43 Nasal Influenza A PCR NOT DETECTED 09/26/22 16:43 Nasal Parainfluen 1 PCR NOT DETECTED 09/26/22 16:43 Nasal Parainfluen 2 PCR NOT DETECTED 09/26/22 16:43 Nasal Parainfluen 3 PCR NOT DETECTED 09/26/22 16:43 Nasal Parainfluen 4 PCR NOT DETECTED 09/26/22 16:43 Nasal RSV (PCR) NOT DETECTED 09/26/22 16:43 Nasal B.pertussis DNA PCR NOT DETECTED 09/26/22 16:43 Nasal C.pneumoniae (PCR) NOT DETECTED 09/26/22 16:43 Leroy Human Metapneumo PCR NOT DETECTED 09/26/22 16:43 Nasal M.pneumoniae (PCR) NOT DETECTED 09/26/22 16:43 Nasal SARS-CoV-2 (PCR) DETECTED A 09/26/22 16:43 - Procedures Procedures: Procedures REPOSITION LEFT UPPER FEMUR WITH INTRAMED FIX, OPEN APPROACH (05/25/16) TRANSFUSE NONAUT FROZEN PLASMA IN PERIPH VEIN, PERC (05/25/16)
[2022-09-27] MEDS: ASPIRIN EC 81 MG TABLET PO SCH (15:14)
[2022-09-27] MEDS: SODIUM CHLORIDE 0.9% 1,000 ML IV SCH (15:17)
[2022-09-27] MEDS: INSULIN LISPRO 300 UNIT/3 ML PEN SUBQ SCH ×2 (16:45→21:38)
--- NOTE | 2022-09-27 18:54 | PHARMACY PROGRESS NOTE ---
- Best Possible Medication History Admit Date and Time: 09/26/222028 Processed by: Pharmacy Medication History completed: Yes Patient Interview: Pt unable to participate Secondary Source(s): Prescription bottles ( STATES THAT PATIENT TAKEN OFF OF WARFARIN DUE TO FALLS, ONLY ON ASA AND PLAVIX. MED RECONCILED AGAINST PRESCRIPTION BOTTLES AT HOME READ OFF BY . PT USES [facility], BUT WILL FILL AT [facility] IF SOMETHING IS NEEDED URGENTLY.), Spouse/Significant other, Insurance records As the person ultimately responsible for medication therapy, providers are able to order a medication from an existing home medication list in [facility] via the "Reconcile Routine" prior to Confirmation of that medication by landing support specialist. Such practice is discouraged except when the physician, in their clinical judgment, deems that a medical need exists for a medication without regard to previous use.
[2022-09-27] MEDS: ATORVASTATIN 40 MG TABLET PO SCH (21:38)
[2022-09-27] MEDS: guaiFENesin 600 MG TABLET PO SCH (21:38)
[2022-09-27 22:21] LABS: ESTIMATED AVERAGE GLUCOSE 137 mg/dL (70-100); HEMOGLOBIN A1c% 6.4 % (4.27-6.07)
[2022-09-28] MEDS: SODIUM CHLORIDE 0.9% 1,000 ML IV SCH (03:20)
[2022-09-28 06:05] LABS: HCT - HEMATOCRIT 35.3 % (42.0-52.0); HGB - HEMOGLOBIN 11.3 g/dL (14.0-18.0); LYMPHOCYTES # (AUTO) 0.6 10^3/uL (1.5-3.5); LYMPHOCYTES % (AUTO) 12.9 %; MEAN CORPUSCULAR HEMOGLOBIN 32.5 pg (27.0-31.0); MEAN CORPUSCULAR VOLUME 101.4 fL (80.0-94.0); MEAN PLATELET VOLUME 10.5 fL (7.4-11.4); MONOCYTES # (AUTO) 0.4 10^3/uL (0.0-1.0); MONOCYTES % (AUTO) 7.8 %; NEUTROPHILS # (AUTO) 3.8 10^3/uL (1.5-6.6); NEUTROPHILS % (AUTO) 79.1 %; PLT - PLATELET COUNT 117 10^3/uL (130-450); RED BLOOD COUNT 3.48 10^6/uL (4.70-6.10); RED CELL DISTRIBUTION WIDTH 12.4 % (12.0-15.0); WHITE BLOOD COUNT 4.7 x10^3/uL (4.8-10.8)
[2022-09-28 06:10] LABS: POTASSIUM 3.7 mmol/L (3.5-5.0)
[2022-09-28] MEDS: ENOXAPARIN 100 MG/ML SYRINGE SUBQ SCH ×2 (06:28→18:35)
[2022-09-28] MEDS ORDERED: DEXAMETHASONE 4 MG/ML VIAL IVP SCH (09:00)
[2022-09-28] MEDS: INSULIN LISPRO 300 UNIT/3 ML PEN SUBQ SCH ×4 (09:17→20:27)
[2022-09-28] MEDS: SODIUM CHLORIDE FLUSH 0.9% 10 ML SYRINGE IVP SCH ×2 (09:19→17:34)
[2022-09-28] MEDS: guaiFENesin 600 MG TABLET PO SCH ×2 (09:19→20:27)
[2022-09-28] MEDS: REMDESIVIR 100MG VIAL 100 MG in SODIUM CHLORIDE 0.9% 100ML 100 ML IV SCH (09:19)
[2022-09-28] MEDS: ASPIRIN EC 81 MG TABLET PO SCH (09:19)
[2022-09-28] MEDS ORDERED: SODIUM CHLORIDE 0.9% 1,000 ML IV SCH (09:31)
[2022-09-28] MEDS: polyethylene glycoL 3350 17 GM PACKET PO SCH (09:47)
[2022-09-28] MEDS: SERTRALINE 50 MG TABLET PO SCH (12:43)
[2022-09-28] MEDS: CLOPIDOGREL 75 MG TABLET PO SCH (12:43)
[2022-09-28] MEDS: ACETAMINOPHEN 325 MG TABLET PO PRN ×2 (12:50→20:27)
--- NOTE | 2022-09-28 16:06 | PROVIDER PROGRESS NOTE ---
Assessment/Plan - Problem List (1) NSTEMI (non-ST elevated myocardial infarction) Assessment/Plan: Records were reviewed. This patient has a Hx of systolic CHF, EF 25% on Echo in 2015. He had an OR last year, did not undergo angio or did not require PCI by angio. He was on Plavix. He did have recent chest pain and dyspnea. His labs are all reviewed. Troponins peaked at 266 The ER EKG showed NSR, low voltage and no ST or T wave changes. EKG repeated 09/27 showed NSR, the same low voltage and new symmetric anterolateral T wave inversions consistent with an acute anterolateral OR. He was put on Lovenox therapeutic dose at admission, got that for 3 days ASA 325 mg administered in ER, and now continuing 1 baby aspirin daily. Plan: Will change Lovenox down to DVT prophylaxis dose Will check lipid panel Resume Plavix if he was on that, awaiting reconciled med list Continue statin, adjust dose per lipid panel Hope to continue beta-allison but his BP is still low, and med list has not yet been reconciled, from the [facility] Echo ordered, but we have no Echo service here until Friday of next week (today is Sat). Because of the patient's active COVID infection, he is not a candidate to be transferred for coronary angiogram currently. 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 Will try to obtain the angiogram report done at [facility] in [place] in 2021 I discussed this entire plan with patient, and daughter and son-in-law were at bedside yesterday (2) Acute respiratory failure with hypoxia He was dyspneic at home. In the ER, he was desaturating to 85% on room air, per Dr Godfrey report to me, but that was not documented. His CTA was neg for PE, no evidence of infiltrate/consolidation, no pulm vasc congestion. He has never been told he has COPD or emphysema, despite his lung exam sounding tight. But he is COVID positive and has Hx of CHF. O2 suppl is at 3 L - 4 L O2 Plan: Continue supplemental O2 Continue any hand held inhaler Will treat the underlying Dx Will resume Lasix Will order no VS while aslweep, so he can get rest (3) COVID 19 pneumonia Plan: Isolation has been ordered Remdesivir to continue Decadron 6 mg IV daily to continue and will change it to po Mucinex for pulmonary toilet Continue IS (4) Chronic systolic heart failure As per history with Echo from 2015 showing EF of 25%. He also remembered that when he had the angiogram in 2021, his EF was about 30% Plan: Avoid over hydration Continue with his usual CHF meds, holding parameters if low BP Echo ordered, but we have no Echo service here until Friday of next week (today is Sat). Will follow BNP, may need higher Lasix amounts (5) Fall at home He could not get off the toilet and his went to help him get off the toilet and he kind of crumpled down. He got an abrasion on the left ear from it. He was noted by EMS to be orthostatic and on time of arrival has received about 600 mL of normal saline IV. Plan: We will continue to monitor orthostatic vital signs, and treat the causes (6) Orthostatic hypotension He was noted by EMS to be orthostatic and by time of arrival had iv fluids given. Since admission, syst blood pressures have been in the 90s to 100 Plan: Will continue to give slow IV hydration with NS, watching I's and O's carefully for pulmonary edema Will follow orthostatic vital signs daily Meds that can drop his blood pressure will have holding parameters. Will start PT and OT probably tomorrow, if orthostasis has improved. He uses a walker all the time, he reported (7) DM According to his chart records, he is a diabetic, takes metformin at home, by old med list. His A1c came back at 6.4, indicating good control, just on his home Metformin doses We changed his cardiac diet order to a cardiac and diabetic diet Plan: Will resume his Metformin, since creat normal and >48 hrs since iv dye given Will order hypoglycemia protocol, glucose fingerstick checks and sliding scale insulin coverage and obtain his A1c Will allow caffeine, and allow Cola and allow 1 sugar packet with meals (per his requests). (8) Lactic acidosis Resolved after IV fluids Probably from hypotension at admission. He also has a Hx of lactic acidosis unknown etiology in 2016 - Current Meds Current Meds: Current Medications Generic Name Dose Route Start Last Admin Trade Name Freq PRN Reason Stop Dose Admin Acetaminophen 650 mg 09/26/22 20:29 09/28/22 12:50 Acetaminophen 325 Mg Tablet PO 650 mg Q4HR PRN Administration Pain 1 to 4, or Fever Aspirin 81 mg 09/27/22 13:40 09/28/22 09:19 Aspirin Ec 81 Mg Tablet PO 81 mg DAILY CATE Administration Atorvastatin Calcium 40 mg 09/27/22 21:00 09/27/22 21:38 Atorvastatin 40 Mg Tablet PO 40 mg QPM CATE Administration Clopidogrel Bisulfate 75 mg 09/28/22 10:00 09/28/22 12:43 Clopidogrel 75 Mg Tablet PO 75 mg DAILY CATE Administration Enoxaparin Sodium 100 mg 09/27/22 07:00 09/28/22 06:28 Enoxaparin 100 Mg/Ml Syringe SUBQ 100 mg Q12H CATE Administration Guaifenesin 600 mg 09/27/22 21:00 09/28/22 09:19 Guaifenesin 600 Mg Tablet PO 600 mg BID CATE Administration Remdesivir 100 mg/ Sodium 100 mls @ 200 mls/hr 09/28/22 09:00 09/28/22 09:49 Chloride IV 10/01/22 09:29 Infused DAILY [facility] Infusion Insulin Human Lispro 1 - 5 unit 09/27/22 17:00 09/28/22 12:43 Insulin Lispro 300 Unit/3 Ml Pen SUBQ 2 unit 0800,1200,1700,2100 [facility] Administration Protocol Polyethylene Glycol 17 gm 09/28/22 09:00 09/28/22 09:47 Polyethylene Glycol 3350 17 Gm Packet PO Not Given DAILY CATE Sertraline HCl 50 mg 09/28/22 10:00 09/28/22 12:43 Sertraline 50 Mg Tablet PO 50 mg DAILY [facility] Administration Sodium Chloride 10 ml 09/27/22 01:00 09/28/22 09:19 Sodium Chloride Flush 0.9% 10 Ml Syringe IVP Not Given 0100,0900,1700 [facility] - Lab Result Fish Bone Diagrams: 09/28/22 05:25 09/28/22 05:25 - Additional Planning My Orders: My Active Orders 09/27/22 17:00 Insulin Lispro [Humalog Kwikpen U-100] 1 - 5 unit SUBQ 0800,1200,1700,2100 09/27/22 21:00 Atorvastatin [Lipitor] 40 mg PO QPM guaiFENesin [Mucinex] 600 mg PO BID 09/28/22 09:00 Remdesivir 100Mg Vial [Veklury] 100 mg Sodium Chloride 0.9% 100Ml [Normal Saline 0.9% 100Ml] 100 ml IV DAILY 09/28/22 09:31 Sodium Chloride 0.9% [Normal Saline 0.9%] 1,000 ml IV 40 mls/hr 09/28/22 10:00 Clopidogrel [Plavix] 75 mg PO DAILY Sertraline [Zoloft] 50 mg PO DAILY 09/28/22 17:00 metFORMIN [Glucophage] 1,000 mg PO BIDWM 09/28/22 21:00 carvediloL [Coreg] 6.25 mg PO BID 09/29/22 05:00 BMP - BASIC METABOLIC PANEL [CHEM] DAILYLAB CBC - COMP BLD CT W/AUTO DIFF [HEME] DAILYLAB 09/29/22 09:00 Tamsulosin [Flomax] 0.4 mg PO DAILY dexAMETHasone [Decadron] 6 mg PO DAILY 09/30/22 05:00 BMP - BASIC METABOLIC PANEL [CHEM] DAILYLAB CBC - COMP BLD CT W/AUTO DIFF [HEME] DAILYLAB 10/01/22 05:00 BMP - BASIC METABOLIC PANEL [CHEM] DAILYLAB CBC - COMP BLD CT W/AUTO DIFF [HEME] DAILYLAB Subjective - Subjective Patient Reports: Other (Feels exhausted, has not slept well since admission, gets interrupted when asleep. Is more SOB today, but also he did get up and is in a chair.) Objective Vital Signs: Vital Signs - 24 hr 09/27/22 09/27/22 09/28/22 16:00 20:02 00:50 Temperature 36.6 C 36.6 C Heart Rate [ 58 L 59 L Brachial] Respiratory 20 18 Rate Blood Pressure [Left Brachial artery] Blood Pressure 107/74 100/73 [Right Brachial artery] O2 Saturation 97 93 If not protocol 4 2 2 : Oxygen Flow, liters/minute 09/28/22 09/28/22 09/28/22 05:24 08:00 08:21 Temperature 36.6 C 37.0 C Heart Rate [ 78 60 Brachial] Respiratory 18 18 Rate Blood Pressure 96/67 [Left Brachial artery] Blood Pressure 106/73 [Right Brachial artery] O2 Saturation 97 97 If not protocol 2 2 2 : Oxygen Flow, liters/minute 09/28/22 09/28/22 09/28/22 09:30 09:40 12:00 Temperature 37.2 C Heart Rate [ 74 Brachial] Respiratory 18 Rate Blood Pressure 108/64 [Left Brachial artery] Blood Pressure [Right Brachial artery] O2 Saturation 88 L 94 96 If not protocol 1 1 : Oxygen Flow, liters/minute Oxygen O2 Source Nasal cannula I&O (Last 24 Hrs): Intake and Output Totals x24h 09/26/22 09/27/22 09/28/22 23:59 23:59 23:59 Intake Total 1100 1130 2076.109 Balance 1100 1130 2076.109 General: Alert, Oriented x3, Moderate distress (He is taking a breath several times in the middle of a sentence) HEENT: Mucous membr. moist/pink, Other (wearing O2 n.c.) Neuro: Alert, Non Focal, Other (Has arm tremor intermittently. Is slow to answer, then speaks normally.) Cardiovascular: No murmurs Respiratory: Wheezes, Other (Diminished breath sounds with poor air movement) Abdomen: Soft, No tenderness Extremities: No clubbing, No edema - Results Results: Laboratory Results WBC 4.7 x10^3/uL (4.8-10.8) L 09/28/22 05:25 RBC 3.48 10^6/uL (4.70-6.10) L 09/28/22 05:25 Hgb 11.3 g/dL (14.0-18.0) L 09/28/22 05:25 Hct 35.3 % (42.0-52.0) L 09/28/22 05:25 MCV 101.4 fL (80.0-94.0) H 09/28/22 05:25 MCH 32.5 pg (27.0-31.0) H 09/28/22 05:25 MCHC 32.0 g/dL (32.0-36.0) 09/28/22 05:25 RDW 12.4 % (12.0-15.0) 09/28/22 05:25 Plt Count 117 10^3/uL (130-450) L 09/28/22 05:25 MPV 10.5 fL (7.4-11.4) 09/28/22 05:25 Neut # (Auto) 3.8 10^3/uL (1.5-6.6) 09/28/22 05:25 Lymph # (Auto) 0.6 10^3/uL (1.5-3.5) L 09/28/22 05:25 [place] # (Auto) 0.4 10^3/uL (0.0-1.0) 09/28/22 05:25 Eos # (Auto) 0.0 10^3/uL (0.0-0.7) 09/28/22 05:25 Baso # (Auto) 0.0 10^3/uL (0.0-0.1) 09/28/22 05:25 Absolute Nucleated RBC 0.00 x10^3/uL 09/28/22 05:25 Nucleated RBC % 0.0 /100WBC 09/28/22 05:25 PT 13.5 secs (9.9-12.6) H 09/27/22 10:52 INR 1.2 (0.8-1.2) 09/27/22 10:52 VBG pH 7.338 (7.31-7.41) 09/26/22 16:42 VBG pCO2 46.2 mmHg (41-51) 09/26/22 16:42 VBG pO2 20.8 mmHg (25-47) L 09/26/22 16:42 VBG HCO3 24.3 mmol/L (23-28) 09/26/22 16:42 VBG Total CO2 25.7 mmol/L (24-29) 09/26/22 16:42 VBG O2 Saturation 33.5 % (60-80) L 09/26/22 16:42 VBG Base Excess -1.8 mmol/L (-2 - +2) 09/26/22 16:42 Sodium 137 mmol/L (135-145) 09/28/22 05:25 Potassium 3.7 mmol/L (3.5-5.0) 09/28/22 05:25 Chloride 103 mmol/L (101-111) 09/28/22 05:25 Carbon Dioxide 25 mmol/L (21-32) 09/28/22 05:25 Anion Gap 9.0 (6-13) 09/28/22 05:25 BUN 22 mg/dL (6-20) H 09/28/22 05:25 Creatinine 1.0 mg/dL (0.6-1.2) 09/28/22 05:25 Estimated GFR (MDRD) 72 (>89) L 09/28/22 05:25 Glucose 158 mg/dL (70-100) H 09/28/22 05:25 Estimat Average Glucose 137 mg/dL (70-100) H 09/27/22 10:52 Hemoglobin A1c % 6.4 % (4.27-6.07) H 09/27/22 10:52 Lactic Acid 1.3 mmol/L (0.5-2.2) 09/27/22 10:52 Calcium 8.0 mg/dL (8.5-10.3) L 09/28/22 05:25 Magnesium 1.7 mg/dL (1.7-2.8) 09/26/22 16:42 Total Bilirubin 0.7 mg/dL (0.2-1.0) 09/26/22 16:42 AST 37 IU/L (10-42) 09/26/22 16:42 ALT 27 IU/L (10-60) 09/26/22 16:42 Alkaline Phosphatase 43 IU/L (42-121) 09/26/22 16:42 Troponin I High Sens 78.2 ng/L (2.3-19.7) H* 09/28/22 05:25 B-Natriuretic Peptide 348 pg/mL (5-100) H 09/26/22 16:42 Total Protein 7.1 g/dL (6.7-8.2) 09/26/22 16:42 Albumin 3.7 g/dL (3.2-5.5) 09/26/22 16:42 Globulin 3.4 g/dL (2.1-4.2) 09/26/22 16:42 Albumin/Globulin Ratio 1.1 (1.0-2.2) 09/26/22 16:42 Nasal Adenovirus (PCR) NOT DETECTED 09/26/22 16:43 Nasal B. parapertussis DNA (PCR) NOT DETECTED 09/26/22 16:43 Nasal Coronavir 229E PCR NOT DETECTED 09/26/22 16:43 Nasal Coronavir HKU1 PCR NOT DETECTED 09/26/22 16:43 Nasal Coronavir NL63 PCR NOT DETECTED 09/26/22 16:43 Nasal Coronavir OC43 PCR NOT DETECTED 09/26/22 16:43 Nasal Enterovir/Rhinovir PCR NOT DETECTED 09/26/22 16:43 Nasal Influenza B PCR NOT DETECTED 09/26/22 16:43 Nasal Influenza A PCR NOT DETECTED 09/26/22 16:43 Nasal Parainfluen 1 PCR NOT DETECTED 09/26/22 16:43 Nasal Parainfluen 2 PCR NOT DETECTED 09/26/22 16:43 Nasal Parainfluen 3 PCR NOT DETECTED 09/26/22 16:43 Nasal Parainfluen 4 PCR NOT DETECTED 09/26/22 16:43 Nasal RSV (PCR) NOT DETECTED 09/26/22 16:43 Nasal B.pertussis DNA PCR NOT DETECTED 09/26/22 16:43 Nasal C.pneumoniae (PCR) NOT DETECTED 09/26/22 16:43 Leroy Human Metapneumo PCR NOT DETECTED 09/26/22 16:43 Nasal M.pneumoniae (PCR) NOT DETECTED 09/26/22 16:43 Nasal SARS-CoV-2 (PCR) DETECTED A 09/26/22 16:43 - Procedures Procedures: Procedures REPOSITION LEFT UPPER FEMUR WITH INTRAMED FIX, OPEN APPROACH (05/25/16) TRANSFUSE NONAUT FROZEN PLASMA IN PERIPH VEIN, PERC (05/25/16)
[2022-09-28] MEDS: metFORMIN 500 MG TABLET PO SCH (17:32)
[2022-09-28] MEDS: carvediloL 3.125 MG TABLET PO SCH (20:27)
[2022-09-28] MEDS: ATORVASTATIN 40 MG TABLET PO SCH (20:27)
[2022-09-29] MEDS: SODIUM CHLORIDE FLUSH 0.9% 10 ML SYRINGE IVP SCH ×4 (01:23→23:45)
[2022-09-29] MEDS: ACETAMINOPHEN 325 MG TABLET PO PRN ×4 (01:28→17:03)
[2022-09-29 06:18] LABS: BASOPHILS % (AUTO) 0.1 %; HCT - HEMATOCRIT 32.1 % (42.0-52.0); HGB - HEMOGLOBIN 10.4 g/dL (14.0-18.0); LYMPHOCYTES # (AUTO) 1.2 10^3/uL (1.5-3.5); LYMPHOCYTES % (AUTO) 7.9 %; MEAN CORPUSCULAR HEMOGLOBIN 32.6 pg (27.0-31.0); MEAN CORPUSCULAR HGB CONC 32.4 g/dL (32.0-36.0); MEAN CORPUSCULAR VOLUME 100.6 fL (80.0-94.0); MEAN PLATELET VOLUME 10.7 fL (7.4-11.4); MONOCYTES % (AUTO) 6.8 %; NEUTROPHILS # (AUTO) 12.3 10^3/uL (1.5-6.6); NEUTROPHILS % (AUTO) 84.9 %; PLT - PLATELET COUNT 145 10^3/uL (130-450); RED BLOOD COUNT 3.19 10^6/uL (4.70-6.10); RED CELL DISTRIBUTION WIDTH 12.5 % (12.0-15.0); WHITE BLOOD COUNT 14.5 x10^3/uL (4.8-10.8)
[2022-09-29 06:47] LABS: CALCIUM 8.5 mg/dL (8.5-10.3); CREATININE 1.1 mg/dL (0.6-1.2); POTASSIUM 3.8 mmol/L (3.5-5.0)
[2022-09-29 06:55] LABS: CHOLESTEROL 72 mg/dL; HDL CHOLESTEROL 24 mg/dL; LDL CHOLESTEROL,CALCULATED 28 mg/dL; LDL/HDL RATIO 1.2 (<3.6); TRIGLYCERIDES 99 mg/dL; VLDL CHOLESTEROL 20 mg/dL
--- NOTE | 2022-09-29 07:49 | PROVIDER PROGRESS NOTE ---
Assessment/Plan - Problem List (1) NSTEMI (non-ST elevated myocardial infarction) Assessment/Plan: Records showed he has a Hx of systolic CHF, EF 25% on Echo in 2016. He had an WA last year, did not undergo angio or did not require PCI by angio. He was on Plavix. He did have recent chest pain and dyspnea. His labs are all reviewed. Troponins peaked at 266 The ER EKG showed NSR, low voltage and no ST or T wave changes. EKG repeated 09/27 showed NSR, the same low voltage and new symmetric anterolateral T wave inversions consistent with an acute anterolateral WA. He was put on Lovenox therapeutic dose at admission, got that for 3 days ASA 325 mg administered in ER, and now continuing 1 baby aspirin daily. Will likely give this plus Plavix for 3 mos We changed Lovenox therapeutic BID dose (that he got for 3 days) down to a daily DVT prophylaxis dose A fasting lipid panel showed low numbers, consitent with poor nutrition. We have resumed daily Plavix Continue statin, adjust dose per lipid panel Plan: Hope to continue beta-allison but his BP has been low Echo ordered, but we have no Echo service here until Friday of next week (today is Sun). Because of the patient's active COVID infection, he is not a candidate to be transferred for coronary angiogram currently. I will try to reach out to his wellness ambassador to confirm that he did have an angiogram in 2020 and whether another angiogram would benefit him. Will try to obtain the angiogram report done at [facility] in [place] in 2021 (2) Acute respiratory failure with hypoxia He was dyspneic at home. In the ER, he was desaturating to 85% on room air, per Dr Godfrey report to me, but that was not documented. His CTA was neg for PE, no evidence of infiltrate/consolidation, no pulm vasc congestion. He has never been told he has COPD or emphysema, despite his lung exam sounding tight. But he is COVID positive and has Hx of CHF. Room air sat here has been documented at 88%. He needs O2 suppl is at 1-2 L O2 CXR was done today>> no new findings Plan: Continue supplemental O2 Continue any hand held inhaler Will treat the underlying Dx Will resume Lasix, with hold parameters Will order no VS while asleep, so he can get rest (3) Orthostatic hypotension Today his vital signs were very abnormal: Laying BP 120/75, HR 81. Sitting BP 109/59, HR 77. Standing BP 86/55, HR 95. He has approximately 40 mmHg drop in systolic blood pressure going from supine to standing. He reports being very tired today and part of it could be from his low blood pressures At admission, EMS also noted orthostasis, he has needed fluids and his Lasix has been on hold Plan: I have resumed but put holding parameters on his Lasix, spironolactone, Coreg We will give a 500 cc saline bolus now Start TEDS stockings on in a.m, off at bedtime (4) COVID 19 pneumonia Clinically, his lung exam is improving Plan: Isolation tp continue Remdesivir to continue Decadron 6 mg IV daily to continue and will change it to po Mucinex for pulmonary toilet Continue IS (5) Pleuritic chest pain He c/o this starting last night Plan: CXR ordered>> no new findings (6) Insomnia He has had insomnia since being admitted. One reason was the nighttime interruptions. Another reason is not being in his own bed. Yesterday, I ordered no mVS checks between 2330 and 0630, in order to allow uninterrupted sleep. Last night Telemedicine was contacted for a sleep aid and none was orderded, it said because of "NSTEMI and needing supp O2" and their note (in [facility] section) said to just "monitor him". Plan: Will give prn Benadryl for insomnia (7) Heartburn Plan: Will order daily Protonix and will order TUMS prn Will treat if constipated (8) Chronic systolic heart failure As per history with Echo from 2015 showing EF of 25%. He also remembered that when he had the angiogram in 2021, his EF was about 30%. He has had no Echo this admssion. His BNP is being followed now. Labs were all reviewed and BNP has decreased from 300 to 200, despite no Lasix, so doubtful he is in CHF exacerbation. Plan: Avoid over hydration Continue with his usual CHF meds, holding parameters if low BP Echo ordered, but we have no Echo service here until Friday of next week (today is Sun). Continue to follow BNP, may need Lasix (9) Fall at home He could not get off the toilet and his went to help him get off the toilet and he kind of crumpled down. He got an abrasion on the left ear from it. He was noted by EMS to be orthostatic and on time of arrival has received about 600 mL of normal saline IV. Plan: We will continue to monitor orthostatic vital signs, and treat the causes Start TEDS stockings on in a.m, off at bedtime (10) DM According to his chart records, he is a diabetic, takes metformin at home, by old med list. His A1c came back at 6.4, indicating good control, just on his home Metformin doses We changed his cardiac diet order to a cardiac and diabetic diet Plan: Will resume his Metformin, since creat normal and >48 hrs since iv dye given Will order hypoglycemia protocol, glucose fingerstick checks and sliding scale insulin coverage and obtain his A1c Will allow caffeine, and allow Cola and allow 1 sugar packet with meals (per his requests). (11) Lactic acidosis Resolved after IV fluids Probably from hypotension at admission. He also has a Hx of lactic acidosis unknown etiology in 2016 - Current Meds Current Meds: Current Medications Generic Name Dose Route Start Last Admin Trade Name Freq PRN Reason Stop Dose Admin Acetaminophen 650 mg 09/26/22 20:29 09/29/22 01:28 Acetaminophen 325 Mg Tablet PO 650 mg Q4HR PRN Administration Pain 1 to 4, or Fever Aspirin 81 mg 09/27/22 13:40 09/28/22 09:19 Aspirin Ec 81 Mg Tablet PO 81 mg DAILY CATE Administration Atorvastatin Calcium 40 mg 09/27/22 21:00 09/28/22 20:27 Atorvastatin 40 Mg Tablet PO 40 mg QPM CATE Administration Carvedilol 6.25 mg 09/28/22 21:00 09/28/22 20:27 Carvedilol 3.125 Mg Tablet PO 6.25 mg BID CATE Administration Clopidogrel Bisulfate 75 mg 09/28/22 10:00 09/28/22 12:43 Clopidogrel 75 Mg Tablet PO 75 mg DAILY CATE Administration Guaifenesin 600 mg 09/27/22 21:00 09/28/22 20:27 Guaifenesin 600 Mg Tablet PO 600 mg BID CATE Administration Remdesivir 100 mg/ Sodium 100 mls @ 200 mls/hr 09/28/22 09:00 09/28/22 09:49 Chloride IV 10/01/22 09:29 Infused DAILY CATE Infusion Insulin Human Lispro 1 - 5 unit 09/27/22 17:00 09/28/22 20:27 Insulin Lispro 300 Unit/3 Ml Pen SUBQ 2 unit 0800,1200,1700,2100 [facility] Administration Protocol Metformin HCl 1,000 mg 09/28/22 17:00 09/28/22 17:32 Metformin 500 Mg Tablet PO 1,000 mg BIDWM CATE Administration Polyethylene Glycol 17 gm 09/28/22 09:00 09/28/22 09:47 Polyethylene Glycol 3350 17 Gm Packet PO Not Given DAILY CATE Sertraline HCl 50 mg 09/28/22 10:00 09/28/22 12:43 Sertraline 50 Mg Tablet PO 50 mg DAILY CATE Administration Sodium Chloride 10 ml 09/27/22 01:00 09/29/22 01:23 Sodium Chloride Flush 0.9% 10 Ml Syringe IVP 10 ml 0100,0900,1700 [facility] Administration - Lab Result Fish Bone Diagrams: 09/29/22 06:12 09/29/22 06:12 - Additional Planning My Orders: My Active Orders 09/28/22 09:00 Remdesivir 100Mg Vial [Veklury] 100 mg Sodium Chloride 0.9% 100Ml [Normal Saline 0.9% 100Ml] 100 ml IV DAILY 09/28/22 10:00 Clopidogrel [Plavix] 75 mg PO DAILY Sertraline [Zoloft] 50 mg PO DAILY 09/28/22 17:00 metFORMIN [Glucophage] 1,000 mg PO BIDWM 09/28/22 21:00 carvediloL [Coreg] 6.25 mg PO BID 09/29/22 09:00 Enoxaparin [Lovenox] 40 mg SUBQ DAILY Furosemide [Lasix] 20 mg PO DAILY Spironolactone [Aldactone] 25 mg PO DAILY Tamsulosin [Flomax] 0.4 mg PO DAILY dexAMETHasone [Decadron] 6 mg PO DAILY 09/30/22 05:00 BMP - BASIC METABOLIC PANEL [CHEM] DAILYLAB BNP - B-NATRIURETIC PEPTIDE [IAI] DAILYLAB CBC - COMP BLD CT W/AUTO DIFF [HEME] DAILYLAB 10/01/22 05:00 BMP - BASIC METABOLIC PANEL [CHEM] DAILYLAB BNP - B-NATRIURETIC PEPTIDE [IAI] DAILYLAB CBC - COMP BLD CT W/AUTO DIFF [HEME] DAILYLAB 10/02/22 05:00 BNP - B-NATRIURETIC PEPTIDE [IAI] DAILYLAB Subjective - Subjective Patient Reports: Fatigue (wants to sleep and not get OOB.), Heartburn Nursing Reports: Other (Refused some of his a.m. meds) Objective Vital Signs: Vital Signs - 24 hr 09/28/22 09/28/22 09/28/22 08:00 08:21 09:30 Temperature 37.0 C Heart Rate [ 60 Brachial] Respiratory 18 Rate Blood Pressure 96/67 [Left Brachial artery] Blood Pressure [Right Brachial artery] O2 Saturation 97 88 L If not protocol 2 2 : Oxygen Flow, liters/minute 09/28/22 09/28/22 09/28/22 09:40 12:00 16:17 Temperature 37.2 C 37.0 C Heart Rate [ 74 62 Brachial] Respiratory 18 16 Rate Blood Pressure 108/64 90/67 [Left Brachial artery] Blood Pressure [Right Brachial artery] O2 Saturation 94 96 94 If not protocol 1 1 1 : Oxygen Flow, liters/minute 09/28/22 09/28/22 09/29/22 20:30 20:55 00:44 Temperature 36.5 C 36.6 C Heart Rate [ 84 74 Brachial] Respiratory 20 20 Rate Blood Pressure 134/69 H 110/84 H [Left Brachial artery] Blood Pressure [Right Brachial artery] O2 Saturation 97 96 If not protocol 1 1 4 : Oxygen Flow, liters/minute 09/29/22 09/29/22 01:23 05:58 Temperature 36.6 C Heart Rate [ 67 Brachial] Respiratory 18 Rate Blood Pressure [Left Brachial artery] Blood Pressure 97/64 [Right Brachial artery] O2 Saturation 95 96 If not protocol 2 2 : Oxygen Flow, liters/minute Oxygen O2 Source Nasal cannula I&O (Last 24 Hrs): Intake and Output Totals x24h 09/27/22 09/28/22 09/29/22 23:59 23:59 23:59 Intake Total 1130 3047.000 Balance 1130 3047.000 General: Other (sdleep, supine, no resp distress, on O2 via n.c.) HEENT: Mucous membr. moist/pink Neck: Supple, No JVD (at 30 degree upright angle) Cardiovascular: No murmurs Respiratory: No respiratory distress (on suppl O2), Breath sounds nml Abdomen: Soft, No tenderness Extremities: No clubbing, No edema - Results Results: Laboratory Results WBC 14.5 x10^3/uL (4.8-10.8) H 09/29/22 06:12 RBC 3.19 10^6/uL (4.70-6.10) L 09/29/22 06:12 Hgb 10.4 g/dL (14.0-18.0) L 09/29/22 06:12 Hct 32.1 % (42.0-52.0) L 09/29/22 06:12 MCV 100.6 fL (80.0-94.0) H 09/29/22 06:12 MCH 32.6 pg (27.0-31.0) H 09/29/22 06:12 MCHC 32.4 g/dL (32.0-36.0) 09/29/22 06:12 RDW 12.5 % (12.0-15.0) 09/29/22 06:12 Plt Count 145 10^3/uL (130-450) 09/29/22 06:12 MPV 10.7 fL (7.4-11.4) 09/29/22 06:12 Neut # (Auto) 12.3 10^3/uL (1.5-6.6) H 09/29/22 06:12 Lymph # (Auto) 1.2 10^3/uL (1.5-3.5) L 09/29/22 06:12 [place] # (Auto) 1.0 10^3/uL (0.0-1.0) 09/29/22 06:12 Eos # (Auto) 0.0 10^3/uL (0.0-0.7) 09/29/22 06:12 Baso # (Auto) 0.0 10^3/uL (0.0-0.1) 09/29/22 06:12 Absolute Nucleated RBC 0.00 x10^3/uL 09/29/22 06:12 Nucleated RBC % 0.0 /100WBC 09/29/22 06:12 PT 13.5 secs (9.9-12.6) H 09/27/22 10:52 INR 1.2 (0.8-1.2) 09/27/22 10:52 VBG pH 7.338 (7.31-7.41) 09/26/22 16:42 VBG pCO2 46.2 mmHg (41-51) 09/26/22 16:42 VBG pO2 20.8 mmHg (25-47) L 09/26/22 16:42 VBG HCO3 24.3 mmol/L (23-28) 09/26/22 16:42 VBG Total CO2 25.7 mmol/L (24-29) 09/26/22 16:42 VBG O2 Saturation 33.5 % (60-80) L 09/26/22 16:42 VBG Base Excess -1.8 mmol/L (-2 - +2) 09/26/22 16:42 Sodium 140 mmol/L (135-145) 09/29/22 06:12 Potassium 3.8 mmol/L (3.5-5.0) 09/29/22 06:12 Chloride 104 mmol/L (101-111) 09/29/22 06:12 Carbon Dioxide 23 mmol/L (21-32) 09/29/22 06:12 Anion Gap 13.0 (6-13) 09/29/22 06:12 BUN 31 mg/dL (6-20) H 09/29/22 06:12 Creatinine 1.1 mg/dL (0.6-1.2) 09/29/22 06:12 Estimated GFR (MDRD) 64 (>89) L 09/29/22 06:12 Glucose 177 mg/dL (70-100) H 09/29/22 06:12 Estimat Average Glucose 137 mg/dL (70-100) H 09/27/22 10:52 Hemoglobin A1c % 6.4 % (4.27-6.07) H 09/27/22 10:52 Lactic Acid 1.3 mmol/L (0.5-2.2) 09/27/22 10:52 Calcium 8.5 mg/dL (8.5-10.3) 09/29/22 06:12 Magnesium 1.7 mg/dL (1.7-2.8) 09/26/22 16:42 Total Bilirubin 0.7 mg/dL (0.2-1.0) 09/26/22 16:42 AST 37 IU/L (10-42) 09/26/22 16:42 ALT 27 IU/L (10-60) 09/26/22 16:42 Alkaline Phosphatase 43 IU/L (42-121) 09/26/22 16:42 Troponin I High Sens 78.2 ng/L (2.3-19.7) H* 09/28/22 05:25 B-Natriuretic Peptide 211 pg/mL (5-100) H 09/29/22 06:12 Total Protein 7.1 g/dL (6.7-8.2) 09/26/22 16:42 Albumin 3.7 g/dL (3.2-5.5) 09/26/22 16:42 Globulin 3.4 g/dL (2.1-4.2) 09/26/22 16:42 Albumin/Globulin Ratio 1.1 (1.0-2.2) 09/26/22 16:42 Triglycerides 99 mg/dL (-149) 09/29/22 06:12 Cholesterol 72 mg/dL (-199) 09/29/22 06:12 LDL Cholesterol, Calc 28 mg/dL (-129) 09/29/22 06:12 VLDL Cholesterol 20 mg/dL 09/29/22 06:12 HDL Cholesterol 24 mg/dL (60-) L 09/29/22 06:12 LDL/HDL Ratio 1.2 (<3.6) 09/29/22 06:12 Cholesterol/HDL Ratio 3.0 (<5.0) 09/29/22 06:12 Nasal Adenovirus (PCR) NOT DETECTED 09/26/22 16:43 Nasal B. parapertussis DNA (PCR) NOT DETECTED 09/26/22 16:43 Nasal Coronavir 229E PCR NOT DETECTED 09/26/22 16:43 Nasal Coronavir HKU1 PCR NOT DETECTED 09/26/22 16:43 Nasal Coronavir NL63 PCR NOT DETECTED 09/26/22 16:43 Nasal Coronavir OC43 PCR NOT DETECTED 09/26/22 16:43 Nasal Enterovir/Rhinovir PCR NOT DETECTED 09/26/22 16:43 Nasal Influenza B PCR NOT DETECTED 09/26/22 16:43 Nasal Influenza A PCR NOT DETECTED 09/26/22 16:43 Nasal Parainfluen 1 PCR NOT DETECTED 09/26/22 16:43 Nasal Parainfluen 2 PCR NOT DETECTED 09/26/22 16:43 Nasal Parainfluen 3 PCR NOT DETECTED 09/26/22 16:43 Nasal Parainfluen 4 PCR NOT DETECTED 09/26/22 16:43 Nasal RSV (PCR) NOT DETECTED 09/26/22 16:43 Nasal B.pertussis DNA PCR NOT DETECTED 09/26/22 16:43 Nasal C.pneumoniae (PCR) NOT DETECTED 09/26/22 16:43 [place]oy Human Metapneumo PCR NOT DETECTED 09/26/22 16:43 Nasal M.pneumoniae (PCR) NOT DETECTED 09/26/22 16:43 Nasal SARS-CoV-2 (PCR) DETECTED A 09/26/22 16:43 - Procedures Procedures: Procedures REPOSITION LEFT UPPER FEMUR WITH INTRAMED FIX, OPEN APPROACH (05/25/16) TRANSFUSE NONAUT FROZEN PLASMA IN PERIPH VEIN, PERC (05/25/16)
[2022-09-29] MEDS ORDERED: diphenhydrAMINE 25 MG CAPSULE PO PRN (07:54)
[2022-09-29] MEDS ORDERED: PANTOPRAZOLE 40 MG TABLET PO STA (07:59)
--- NOTE | 2022-09-29 08:39 | XRAY Report ---
PROCEDURE: Chest 1 View X-Ray INDICATIONS: Persistent shortness of breath, new pleuritic chest pain TECHNIQUE: One view of the chest was acquired. COMPARISON: 07/10/2016. Correlation is made with chest CT angiogram, 09/26/2022. FINDINGS: Surgical changes and devices: None. Lungs and pleura: On the semiupright images, no large pneumothorax or large pleural effusions can be seen. No focal infiltrates are seen. Low lung volumes can be seen, causing a crowded appearance to t he lung markings. Elevation of the right hemidiaphragm is seen. Mediastinum: Mediastinal contours appear normal. Heart size is mildly enlarged. Bones and chest wall: No suspicious bony lesions. Overlying soft tissues appear unremarkable. IMPRESSION: No new abnormality is identified. No large pleural effusion or pneumothorax can be seen on this semiu pright study. Mild cardiomegaly is seen. Continued elevation of the right hemidiaphragm. Reviewed by: Jose Hermosillo MD on 09/29/2022 7:38 AM [place] Approved by: Jose Hermosillo MD on 09/29/2022 7:38 AM [facility] Station ID: [id number]
[2022-09-29] MEDS: CALCIUM CARBONATE CHEW 500 MG TABLET PO PRN ×2 (08:55→12:49)
[2022-09-29] MEDS: metFORMIN 500 MG TABLET PO SCH ×2 (08:55→17:36)
[2022-09-29] MEDS: REMDESIVIR 100MG VIAL 100 MG in SODIUM CHLORIDE 0.9% 100ML 100 ML IV SCH (08:57)
[2022-09-29] MEDS: SERTRALINE 50 MG TABLET PO SCH ×2 (08:58→13:20)
[2022-09-29] MEDS: ASPIRIN EC 81 MG TABLET PO SCH ×2 (08:58→13:20)
[2022-09-29] MEDS: ENOXAPARIN 40 MG/0.4 ML SYRINGE SUBQ SCH ×2 (08:58→21:25)
[2022-09-29] MEDS: carvediloL 3.125 MG TABLET PO SCH ×2 (08:58→21:25)
[2022-09-29] MEDS: CLOPIDOGREL 75 MG TABLET PO SCH ×2 (08:59→13:20)
[2022-09-29] MEDS: polyethylene glycoL 3350 17 GM PACKET PO SCH (08:59)
[2022-09-29] MEDS: guaiFENesin 600 MG TABLET PO SCH ×3 (08:59→21:25)
[2022-09-29] MEDS: dexAMETHasone 4 MG TABLET PO SCH (08:59)
[2022-09-29] MEDS: TAMSULOSIN 0.4 MG CAPSULE PO SCH ×2 (08:59→13:20)
[2022-09-29] MEDS ORDERED: SPIRONOLACTONE 25 MG TABLET PO SCH (09:00)
[2022-09-29] MEDS ORDERED: FUROSEMIDE 20 MG TABLET PO SCH (09:00)
[2022-09-29] MEDS: INSULIN LISPRO 300 UNIT/3 ML PEN SUBQ SCH ×4 (09:00→20:58)
[2022-09-29] MEDS ORDERED: SODIUM CHLORIDE 0.9% 500 ML IV ONE (12:47)
[2022-09-29] MEDS: ATORVASTATIN 40 MG TABLET PO SCH (21:25)
[2022-09-30] MEDS: ACETAMINOPHEN 325 MG TABLET PO PRN ×2 (02:24→09:08)
[2022-09-30] MEDS: PANTOPRAZOLE 40 MG TABLET PO SCH (06:47)
[2022-09-30 07:45] LABS: BASOPHILS % (AUTO) 0.1 %; HCT - HEMATOCRIT 25.1 % (42.0-52.0); HGB - HEMOGLOBIN 8.2 g/dL (14.0-18.0); LYMPHOCYTES # (AUTO) 1.2 10^3/uL (1.5-3.5); LYMPHOCYTES % (AUTO) 8.7 %; MEAN CORPUSCULAR HEMOGLOBIN 33.1 pg (27.0-31.0); MEAN CORPUSCULAR HGB CONC 32.7 g/dL (32.0-36.0); MEAN CORPUSCULAR VOLUME 101.2 fL (80.0-94.0); MEAN PLATELET VOLUME 10.7 fL (7.4-11.4); MONOCYTES # (AUTO) 1.1 10^3/uL (0.0-1.0); NEUTROPHILS # (AUTO) 11.8 10^3/uL (1.5-6.6); NEUTROPHILS % (AUTO) 82.9 %; PLT - PLATELET COUNT 143 10^3/uL (130-450); RED BLOOD COUNT 2.48 10^6/uL (4.70-6.10); RED CELL DISTRIBUTION WIDTH 12.4 % (12.0-15.0); WHITE BLOOD COUNT 14.2 x10^3/uL (4.8-10.8)
[2022-09-30 07:55] LABS: CALCIUM 8.8 mg/dL (8.5-10.3); CREATININE 1.3 mg/dL (0.6-1.2); POTASSIUM 3.7 mmol/L (3.5-5.0)
[2022-09-30] MEDS: IPRATROPIUM/ALBUTEROL 3 ML NEB INH PRN ×2 (08:08→16:49)
[2022-09-30 08:26] LABS: FOLATE 15.58 ng/mL (5.90 - >24.8)
--- NOTE | 2022-09-30 08:41 | PROVIDER PROGRESS NOTE ---
Assessment/Plan - Problem List (1) NSTEMI (non-ST elevated myocardial infarction) Assessment/Plan: Records showed he has a Hx of systolic CHF, EF 25% on Echo in 2016. He had an IL last year, did not undergo angio or did not require PCI by angio. He was on Plavix. He did have chest pain and dyspnea before admission. The ER EKG showed NSR, low voltage and no ST or T wave changes. EKG repeated 09/27 showed NSR, the same low voltage and new symmetric anterolateral T wave inversions consistent with an acute anterolateral IL. His labs were all reviewed. Troponins peaked at 266 He was put on Lovenox therapeutic dose at admission, got that for 3 days. We jade nged Lovenox therapeutic BID dose down to a daily DVT prophylaxis dose. ASA 325 mg administered in ER, and now continuing 1 baby aspirin daily. We have resumed daily Plavix. Will likely give this plus Plavix for 3 mos A fasting lipid panel showed low numbers, consistent with poor nutrition. Continue statin, adjust dose per lipid panel. In trying to decide about an agio, I have requested prior angio report that he says he had at [facility] one year ago. We have received an Echo, Cardiol consult from [place] and a CTA abd from another facility, but no angio report. Plan: Hope to continue beta-allison but his BP has been low Echo ordered, but we have no Echo service here until Friday (today is Fri). Because of the patient's active COVID infection, he is currently not a candidate to be transferred for coronary angiogram. We will try to determine who his vascular technologist is, to confirm that he did have an angiogram and whether another angiogram would benefit him. (2) Acute respiratory failure with hypoxia He was dyspneic at home. In the ER, he was desaturating. His CTA was neg for PE, no evidence of infiltrate/consolidation, no pulm vasc congestion. He has never been told he has COPD or emphysema, despite his lung exam sounding tight. But he is COVID positive and has Hx of CHF. Room air sat here has been documented at 88%. He needs O2 suppl at 1-2 L O2 CXR was done today>> no new findings Plan: Continue supplemental O2 Continue any hand held inhaler Will treat the underlying Dx We resumed Lasix, with hold parameters (3) Orthostatic hypotension His vital signs show a 40 mmHg drop in systolic blood pressure going from supine to standing. He reports being very tired and part of it could be from his low blood pressures At admission, EMS also noted orthostasis, he has needed iv fluids and his Lasix has been on hold Plan: I have resumed but put holding parameters on his Lasix, spironolactone, Coreg We will give a 500 cc saline bolus now Start TEDS stockings on in a.m, off at bedtime Start Midodrine 5 mg TID witth meals (4) COVID 19 pneumonia Clinically, his lung exam is improving Plan: Isolation to continue Remdesivir to continue Decadron 6 mg IV daily to continue and will change it to po Mucinex for pulmonary toilet Continue IS (5) Pleuritic chest pain He c/o this starting 09/28. CXR was repeated 09/29>> no new findings. Tylenol not effective. Today 09/30, he says he cannot cough because it hurts too much Plan: Will try Motrin prn. Would like to avoid narcotics, since that could over sedate him and will also drop his BP (6) Insomnia He has had insomnia since being admitted. One reason was the nighttime interruptions. Another reason is not being in his own bed. Yesterday, I ordered no mVS checks between 2330 and 0630, in order to allow un interrupted sleep. Last night Telemedicine was contacted for a sleep aid and none was orderded, it said because of "NSTEMI and needing supp O2" and their note (in [facility] section) said to just "monitor him". Plan: Will change prn Benadryl to prm Ambien for insomnia I have ordered no VS while asleep, so he can get rest (7) Heartburn Plan: Will order daily Protonix and will order TUMS prn Will treat if constipated (8) Protein calorie malnutrition, unspecified His labs were all reviewed today. A fasting lipid panel showed low numbers, consistent with poor nutrition. He is wanting only Ensure. He says he eats Raisin Bran and puts sugar on his foods at home, despite being a Diabetic Plan: Will change his DM diet to a Regular diet, since his A1c was <7 only on Metformin Will ask for Nutrition consult. (9) DM According to his chart records, he is a diabetic, takes metformin at home, by old med list. His A1c came back at 6.4, indicating good control, just on his home Metformin doses We changed his cardiac diet order to a cardiac and diabetic diet Plan: Will resume his Metformin, since creat normal and >48 hrs since iv dye given Will order hypoglycemia protocol, glucose fingerstick checks and sliding scale insulin coverage and obtain his A1c We allowed caffeine, and allow Cola and allow 1 sugar packet with meals (per his requests). Will change his DM diet to a Regular diet, since his A1c was <7 only on Metformin (10) Chronic systolic heart failure As per history with Echo from 2016 showing EF of 25%. He also remembered that when he had the angiogram in his past, his EF was about 30%. He has had no Echo this admission yet. His BNP is being followed now. Labs were all reviewed and BNP has decreased from 300 to 200, despite no Lasix, so doubtful he is in CHF exacerbation. Plan: Avoid over hydration Continue with his usual CHF meds, holding parameters if low BP Echo ordered, but we have no Echo service here until Friday (today is Fri). Continue to follow BNP, may need Lasix (11) Fall at home He could not get off the toilet and his went to help him get off the toilet and he kind of crumpled down. He got an abrasion on the left ear from it. He was noted by EMS to be orthostatic and on time of arrival has received about 600 mL of normal saline IV. Plan: We will continue to monitor orthostatic vital signs, and treat the causes Start TEDS stockings on in a.m, off at bedtime Start Midodrine (12) Lactic acidosis Resolved after IV fluids Probably from hypotension and Metformin use. He also has a Hx of lactic acidosis unknown etiology in 2016 - Current Meds Current Meds: Current Medications Generic Name Dose Route Start Last Admin Trade Name Freq PRN Reason Stop Dose Admin Acetaminophen 650 mg 09/26/22 20:29 09/30/22 02:24 Acetaminophen 325 Mg Tablet PO 650 mg Q4HR PRN Administration Pain 1 to 4, or Fever Albuterol/Ipratropium 3 ml 09/26/22 20:32 09/30/22 08:08 Ipratropium/Albuterol 3 Ml Neb INH 3 ml Q4HR PRN Administration Wheezing Aspirin 81 mg 09/27/22 13:40 09/29/22 13:20 Aspirin Ec 81 Mg Tablet PO 81 mg DAILY CATE Administration Atorvastatin Calcium 40 mg 09/27/22 21:00 09/29/22 21:25 Atorvastatin 40 Mg Tablet PO 40 mg QPM CATE Administration Calcium Carbonate/Glycine 500 mg 09/29/22 07:58 09/29/22 12:49 Calcium Carbonate Chew 500 Mg Tablet PO 500 mg TID PRN Administration Heartburn Carvedilol 6.25 mg 09/29/22 12:50 09/29/22 21:25 Carvedilol 3.125 Mg Tablet PO 6.25 mg BID CATE Administration Clopidogrel Bisulfate 75 mg 09/28/22 10:00 09/29/22 13:20 Clopidogrel 75 Mg Tablet PO 75 mg DAILY CATE Administration Dexamethasone 6 mg 09/29/22 09:00 09/29/22 08:59 Dexamethasone 4 Mg Tablet PO 6 mg DAILY CATE Administration Enoxaparin Sodium 40 mg 09/29/22 09:00 09/29/22 21:25 Enoxaparin 40 Mg/0.4 Ml Syringe SUBQ 40 mg BID CATE Administration Guaifenesin 600 mg 09/27/22 21:00 09/29/22 21:25 Guaifenesin 600 Mg Tablet PO 600 mg BID CATE Administration Remdesivir 100 mg/ Sodium 100 mls @ 200 mls/hr 09/28/22 09:00 09/29/22 09:27 Chloride IV 10/01/22 09:29 Infused DAILY CATE Infusion Insulin Human Lispro 1 - 5 unit 09/27/22 17:00 09/29/22 20:58 Insulin Lispro 300 Unit/3 Ml Pen SUBQ 2 unit 0800,1200,1700,2100 CATE Administration Protocol Pantoprazole Sodium 40 mg 09/30/22 07:00 09/30/22 06:47 Pantoprazole 40 Mg Tablet PO 40 mg QDAC CATE Administration Polyethylene Glycol 17 gm 09/28/22 09:00 09/29/22 08:59 Polyethylene Glycol 3350 17 Gm Packet PO Not Given DAILY CATE Sertraline HCl 50 mg 09/28/22 10:00 09/29/22 13:20 Sertraline 50 Mg Tablet PO 50 mg DAILY CATE Administration Sodium Chloride 10 ml 09/27/22 01:00 09/29/22 23:45 Sodium Chloride Flush 0.9% 10 Ml Syringe IVP 10 ml 0100,0900,1700 CATE Administration Tamsulosin HCl 0.4 mg 09/29/22 09:00 09/29/22 13:20 Tamsulosin 0.4 Mg Capsule PO 0.4 mg DAILY CATE Administration - Lab Result Fish Bone Diagrams: 10/01/22 07:12 10/01/22 07:12 - Additional Planning My Orders: My Active Orders 09/29/22 07:54 Miscellaenous Nursing Order [[facility]] [facility] 09/29/22 07:58 Calcium Carbonate [Tums] 500 mg PO TID PRN 09/29/22 09:00 Enoxaparin [Lovenox] 40 mg SUBQ BID Tamsulosin [Flomax] 0.4 mg PO DAILY dexAMETHasone [Decadron] 6 mg PO DAILY 09/29/22 12:48 Miscellaenous Nursing Order [RC] ONCE AILYN Hose [RC] [facility] 09/29/22 12:50 carvediloL [Coreg] 6.25 mg PO BID 09/29/22 12:51 Furosemide [Lasix] 20 mg PO DAILY Spironolactone [Aldactone] 25 mg PO DAILY 09/29/22 19:11 Lidocaine Patch 5% [Lidoderm Patch] 1 patch TOP DAILY PRN 09/30/22 07:00 Pantoprazole [Protonix] 40 mg PO QDAC 09/30/22 08:00 Ibuprofen [Motrin] 600 mg PO Q6HR metFORMIN [Glucophage] 500 mg PO BIDWM 09/30/22 08:09 RT [Nebulizer/MDI Tx.] [RC] .q4prn 09/30/22 08:33 Zolpidem [Ambien] 5 mg PO QPM PRN 09/30/22 Lunch DIET [Regular Diet] [DIET] 10/01/22 05:00 BMP - BASIC METABOLIC PANEL [CHEM] DAILYLAB BNP - B-NATRIURETIC PEPTIDE [IAI] DAILYLAB CBC - COMP BLD CT W/AUTO DIFF [HEME] DAILYLAB 10/01/22 07:00 Echo Transthoracic Complete [ECHO] Routine 10/02/22 05:00 BNP - B-NATRIURETIC PEPTIDE [IAI] DAILYLAB Subjective - Subjective Patient Reports: Dizzines (intermittently lightheaded with standing), Pain (He c/o pleuritic anterior chest pain. He does not like the food, wants to skip meals.) Objective Vital Signs: Vital Signs - 24 hr 09/29/22 09/29/22 09/29/22 10:00 11:40 13:18 Temperature 36.8 C 36.8 C Heart Rate Heart Rate [ 83 82 Brachial] Respiratory 17 20 Rate Blood Pressure 105/65 [Left Brachial artery] Blood Pressure 92/61 [Right Brachial artery] O2 Saturation 95 94 If not protocol 1 1 1 : Oxygen Flow, liters/minute 09/29/22 09/29/22 09/29/22 13:40 15:19 19:40 Temperature 36.6 C Heart Rate Heart Rate [ 84 Brachial] Respiratory 26 H Rate Blood Pressure [Left Brachial artery] Blood Pressure 103/65 98/64 [Right Brachial artery] O2 Saturation 98 If not protocol 1 1 : Oxygen Flow, liters/minute 09/30/22 09/30/22 00:00 08:10 Temperature 37.0 C Heart Rate 86 Heart Rate [ 73 Brachial] Respiratory 20 24 Rate Blood Pressure [Left Brachial artery] Blood Pressure 94/81 H [Right Brachial artery] O2 Saturation 95 If not protocol 1 1 : Oxygen Flow, liters/minute Oxygen O2 Source Nasal cannula I&O (Last 24 Hrs): Intake and Output Totals x24h 09/28/22 09/29/22 09/30/22 23:59 23:59 23:59 Intake Total 3047.000 1435 700 Balance 3047.000 1435 700 General: Alert, Oriented x3, Other (Thin elderly male, appears tired) HEENT: Mucous membr. moist/pink Neck: Supple, No JVD Neuro: Alert, Non Focal, Other (Slow to respond to questions, then speaks normally) Cardiovascular: No murmurs Respiratory: Rhonchi (mild resp distress) Extremities: No clubbing, No edema - Results Results: Laboratory Results WBC 14.2 x10^3/uL (4.8-10.8) H 09/30/22 07:39 RBC 2.48 10^6/uL (4.70-6.10) L 09/30/22 07:39 Hgb 8.2 g/dL (14.0-18.0) L 09/30/22 07:39 Hct 25.1 % (42.0-52.0) L 09/30/22 07:39 MCV 101.2 fL (80.0-94.0) H 09/30/22 07:39 MCH 33.1 pg (27.0-31.0) H 09/30/22 07:39 MCHC 32.7 g/dL (32.0-36.0) 09/30/22 07:39 RDW 12.4 % (12.0-15.0) 09/30/22 07:39 Plt Count 143 10^3/uL (130-450) 09/30/22 07:39 MPV 10.7 fL (7.4-11.4) 09/30/22 07:39 Neut # (Auto) 11.8 10^3/uL (1.5-6.6) H 09/30/22 07:39 Lymph # (Auto) 1.2 10^3/uL (1.5-3.5) L 09/30/22 07:39 [place] # (Auto) 1.1 10^3/uL (0.0-1.0) H 09/30/22 07:39 Eos # (Auto) 0.0 10^3/uL (0.0-0.7) 09/30/22 07:39 Baso # (Auto) 0.0 10^3/uL (0.0-0.1) 09/30/22 07:39 Absolute Nucleated RBC 0.00 x10^3/uL 09/30/22 07:39 Nucleated RBC % 0.0 /100WBC 09/30/22 07:39 PT 13.5 secs (9.9-12.6) H 09/27/22 10:52 INR 1.2 (0.8-1.2) 09/27/22 10:52 VBG pH 7.338 (7.31-7.41) 09/26/22 16:42 VBG pCO2 46.2 mmHg (41-51) 09/26/22 16:42 VBG pO2 20.8 mmHg (25-47) L 09/26/22 16:42 VBG HCO3 24.3 mmol/L (23-28) 09/26/22 16:42 VBG Total CO2 25.7 mmol/L (24-29) 09/26/22 16:42 VBG O2 Saturation 33.5 % (60-80) L 09/26/22 16:42 VBG Base Excess -1.8 mmol/L (-2 - +2) 09/26/22 16:42 Sodium 137 mmol/L (135-145) 09/30/22 07:39 Potassium 3.7 mmol/L (3.5-5.0) 09/30/22 07:39 Chloride 104 mmol/L (101-111) 09/30/22 07:39 Carbon Dioxide 22 mmol/L (21-32) 09/30/22 07:39 Anion Gap 11.0 (6-13) 09/30/22 07:39 BUN 44 mg/dL (6-20) H 09/30/22 07:39 Creatinine 1.3 mg/dL (0.6-1.2) H 09/30/22 07:39 Estimated GFR (MDRD) 53 (>89) L 09/30/22 07:39 Glucose 159 mg/dL (70-100) H 09/30/22 07:39 POC Whole Bld Glucose 147 mg/dL (70 - 100) H 09/30/22 08:24 Estimat Average Glucose 137 mg/dL (70-100) H 09/27/22 10:52 Hemoglobin A1c % 6.4 % (4.27-6.07) H 09/27/22 10:52 Lactic Acid 1.3 mmol/L (0.5-2.2) 09/27/22 10:52 Calcium 8.8 mg/dL (8.5-10.3) 09/30/22 07:39 Magnesium 1.7 mg/dL (1.7-2.8) 09/26/22 16:42 Total Bilirubin 0.7 mg/dL (0.2-1.0) 09/26/22 16:42 AST 37 IU/L (10-42) 09/26/22 16:42 ALT 27 IU/L (10-60) 09/26/22 16:42 Alkaline Phosphatase 43 IU/L (42-121) 09/26/22 16:42 Troponin I High Sens 78.2 ng/L (2.3-19.7) H* 09/28/22 05:25 B-Natriuretic Peptide 137 pg/mL (5-100) H 09/30/22 07:39 Total Protein 7.1 g/dL (6.7-8.2) 09/26/22 16:42 Albumin 3.7 g/dL (3.2-5.5) 09/26/22 16:42 Globulin 3.4 g/dL (2.1-4.2) 09/26/22 16:42 Albumin/Globulin Ratio 1.1 (1.0-2.2) 09/26/22 16:42 Triglycerides 99 mg/dL (-149) 09/29/22 06:12 Cholesterol 72 mg/dL (-199) 09/29/22 06:12 LDL Cholesterol, Calc 28 mg/dL (-129) 09/29/22 06:12 VLDL Cholesterol 20 mg/dL 09/29/22 06:12 HDL Cholesterol 24 mg/dL (60-) L 09/29/22 06:12 LDL/HDL Ratio 1.2 (<3.6) 09/29/22 06:12 Cholesterol/HDL Ratio 3.0 (<5.0) 09/29/22 06:12 Vitamin B12 282 pg/mL (180-914) 09/30/22 07:39 Folate 15.58 ng/mL (5.90 - >24.8) 09/30/22 07:39 Nasal Adenovirus (PCR) NOT DETECTED 09/26/22 16:43 Nasal B. parapertussis DNA (PCR) NOT DETECTED 09/26/22 16:43 Nasal Coronavir 229E PCR NOT DETECTED 09/26/22 16:43 Nasal Coronavir HKU1 PCR NOT DETECTED 09/26/22 16:43 Nasal Coronavir NL63 PCR NOT DETECTED 09/26/22 16:43 Nasal Coronavir OC43 PCR NOT DETECTED 09/26/22 16:43 Nasal Enterovir/Rhinovir PCR NOT DETECTED 09/26/22 16:43 Nasal Influenza B PCR NOT DETECTED 09/26/22 16:43 Nasal Influenza A PCR NOT DETECTED 09/26/22 16:43 Nasal Parainfluen 1 PCR NOT DETECTED 09/26/22 16:43 Nasal Parainfluen 2 PCR NOT DETECTED 09/26/22 16:43 Nasal Parainfluen 3 PCR NOT DETECTED 09/26/22 16:43 Nasal Parainfluen 4 PCR NOT DETECTED 09/26/22 16:43 Nasal RSV (PCR) NOT DETECTED 09/26/22 16:43 Nasal B.pertussis DNA PCR NOT DETECTED 09/26/22 16:43 Nasal C.pneumoniae (PCR) NOT DETECTED 09/26/22 16:43 Leroy Human Metapneumo PCR NOT DETECTED 09/26/22 16:43 Nasal M.pneumoniae (PCR) NOT DETECTED 09/26/22 16:43 Nasal SARS-CoV-2 (PCR) DETECTED A 09/26/22 16:43 - Procedures Procedures: Procedures REPOSITION LEFT UPPER FEMUR WITH INTRAMED FIX, OPEN APPROACH (05/25/16) TRANSFUSE NONAUT FROZEN PLASMA IN PERIPH VEIN, PERC (05/25/16)
[2022-09-30] MEDS: REMDESIVIR 100MG VIAL 100 MG in SODIUM CHLORIDE 0.9% 100ML 100 ML IV SCH (09:05)
[2022-09-30] MEDS: polyethylene glycoL 3350 17 GM PACKET PO SCH (09:06)
[2022-09-30] MEDS: ENOXAPARIN 40 MG/0.4 ML SYRINGE SUBQ SCH (09:06)
[2022-09-30] MEDS: SODIUM CHLORIDE FLUSH 0.9% 10 ML SYRINGE IVP SCH ×2 (09:06→17:19)
[2022-09-30] MEDS: IBUPROFEN 600 MG TABLET PO SCH ×3 (09:07→17:47)
[2022-09-30] MEDS: dexAMETHasone 4 MG TABLET PO SCH (09:13)
[2022-09-30] MEDS: TAMSULOSIN 0.4 MG CAPSULE PO SCH (09:13)
[2022-09-30] MEDS: CLOPIDOGREL 75 MG TABLET PO SCH (09:18)
[2022-09-30] MEDS: guaiFENesin 600 MG TABLET PO SCH ×2 (09:19→20:55)
[2022-09-30] MEDS: INSULIN LISPRO 300 UNIT/3 ML PEN SUBQ SCH ×4 (09:19→20:55)
[2022-09-30] MEDS: metFORMIN 500 MG TABLET PO SCH ×2 (09:19→17:18)
[2022-09-30] MEDS: SPIRONOLACTONE 25 MG TABLET PO SCH (09:20)
[2022-09-30] MEDS: ASPIRIN EC 81 MG TABLET PO SCH (09:21)
[2022-09-30] MEDS: carvediloL 3.125 MG TABLET PO SCH ×2 (09:21→20:54)
[2022-09-30] MEDS: FUROSEMIDE 20 MG TABLET PO SCH (09:22)
[2022-09-30] MEDS: SERTRALINE 50 MG TABLET PO SCH (09:22)
[2022-09-30] MEDS: MIDODRINE 2.5 MG TABLET PO SCH ×2 (12:07→17:18)
[2022-09-30] MEDS: CYANOCOBALAMIN 500 MCG TABLET PO SCH (17:18)
[2022-09-30] MEDS: ATORVASTATIN 40 MG TABLET PO SCH (20:55)
[2022-09-30] MEDS: ZOLPIDEM 5 MG TABLET PO PRN (20:56)
[2022-10-01] MEDS: IBUPROFEN 600 MG TABLET PO SCH ×4 (00:29→17:27)
[2022-10-01] MEDS: SODIUM CHLORIDE FLUSH 0.9% 10 ML SYRINGE IVP SCH ×3 (00:29→17:28)
[2022-10-01] MEDS: PANTOPRAZOLE 40 MG TABLET PO SCH (06:13)
[2022-10-01 07:17] LABS: BASOPHILS % (AUTO) 0.1 %; HGB - HEMOGLOBIN 7.3 g/dL (14.0-18.0); LYMPHOCYTES # (AUTO) 1.2 10^3/uL (1.5-3.5); LYMPHOCYTES % (AUTO) 9.2 %; MEAN CORPUSCULAR HEMOGLOBIN 33.2 pg (27.0-31.0); MEAN CORPUSCULAR HGB CONC 33.2 g/dL (32.0-36.0); MEAN PLATELET VOLUME 10.9 fL (7.4-11.4); MONOCYTES # (AUTO) 1.2 10^3/uL (0.0-1.0); MONOCYTES % (AUTO) 8.5 %; NEUTROPHILS % (AUTO) 81.6 %; PLT - PLATELET COUNT 135 10^3/uL (130-450); RED CELL DISTRIBUTION WIDTH 12.3 % (12.0-15.0); WHITE BLOOD COUNT 13.5 x10^3/uL (4.8-10.8)
[2022-10-01 07:26] LABS: CALCIUM 8.5 mg/dL (8.5-10.3); CREATININE 1.4 mg/dL (0.6-1.2); POTASSIUM 3.6 mmol/L (3.5-5.0)
[2022-10-01] MEDS ORDERED: SODIUM CHLORIDE 0.9% 500 ML IV ONE (07:54)
--- NOTE | 2022-10-01 08:19 | PROVIDER PROGRESS NOTE ---
Progress Note October 01, 2022 8 AM No overnight events. No reports of arrhythmia. Complaints. Patient himself complains of cough, pleuritic chest pain, shortness of breath at rest. Cough is nonproductive. No hemoptysis. He is 93 to 98% on room air. Blood pressure still intermittently low. It was 102/98 this morning. Active Medications Acetaminophen (Acetaminophen 325 Mg Tablet) 650 mg PO Q4HR PRN PRN Reason: Pain 1 to 4, or Fever Last Admin: 09/30/22 09:08 Dose: 650 mg Albuterol/Ipratropium (Ipratropium/Albuterol 3 Ml Neb) 3 ml INH Q4HR PRN PRN Reason: Wheezing Last Admin: 09/30/22 16:49 Dose: 3 ml Aspirin (Aspirin Ec 81 Mg Tablet) 81 mg PO DAILY COUNT INCLUDES THE [facility] Last Admin: 09/30/22 09:21 Dose: 81 mg Atorvastatin Calcium (Atorvastatin 40 Mg Tablet) 40 mg PO QPM COUNT INCLUDES THE [facility] Last Admin: 09/30/22 20:55 Dose: 40 mg Calcium Carbonate/Glycine (Calcium Carbonate Chew 500 Mg Tablet) 500 mg PO TID PRN PRN Reason: Heartburn Last Admin: 09/29/22 12:49 Dose: 500 mg Carvedilol (Carvedilol 3.125 Mg Tablet) 6.25 mg PO BID COUNT INCLUDES THE [facility] Last Admin: 09/30/22 20:54 Dose: Not Given Cholecalciferol (Cholecalciferol 25 Mcg Tablet) 50 mcg PO DAILY COUNT INCLUDES THE [facility] Clopidogrel Bisulfate (Clopidogrel 75 Mg Tablet) 75 mg PO DAILY COUNT INCLUDES THE [facility] Last Admin: 09/30/22 09:18 Dose: 75 mg Cyanocobalamin (Cyanocobalamin 500 Mcg Tablet) 500 mcg PO DAILY COUNT INCLUDES THE [facility] Last Admin: 09/30/22 17:18 Dose: 500 mcg Dexamethasone (Dexamethasone 4 Mg Tablet) 6 mg PO DAILY COUNT INCLUDES THE [facility] Last Admin: 09/30/22 09:13 Dose: 6 mg Enoxaparin Sodium (Enoxaparin 40 Mg/0.4 Ml Syringe) 40 mg SUBQ DAILY COUNT INCLUDES THE [facility] Furosemide (Furosemide 20 Mg Tablet) 20 mg PO DAILY COUNT INCLUDES THE [facility] Last Admin: 09/30/22 09:22 Dose: 20 mg Guaifenesin (Guaifenesin 600 Mg Tablet) 600 mg PO BID COUNT INCLUDES THE [facility] Last Admin: 09/30/22 20:55 Dose: 600 mg Remdesivir 100 mg/ Sodium (Chloride) 100 mls @ 200 mls/hr IV DAILY COUNT INCLUDES THE [facility] Stop: 10/01/22 09:29 Last Infusion: 09/30/22 10:15 Dose: Infused Sodium Chloride (Normal Saline 0.9%) 500 mls @ 999 mls/hr IV ONCE ONE Stop: 10/01/22 08:24 Ibuprofen (Ibuprofen 600 Mg Tablet) 600 mg PO Q6HR COUNT INCLUDES THE [facility] Last Admin: 10/01/22 06:13 Dose: 600 mg Insulin Human Lispro (Insulin Lispro 300 Unit/3 Ml Pen) 1 - 5 unit SUBQ 0800,1200,1700,2100 COUNT INCLUDES THE [facility]; Protocol Last Admin: 09/30/22 20:55 Dose: 2 unit Lidocaine (Lidocaine Patch 5%) 1 patch TOP DAILY PRN PRN Reason: PAIN Metformin HCl (Metformin 500 Mg Tablet) 500 mg PO BIDWM COUNT INCLUDES THE [facility] Last Admin: 09/30/22 17:18 Dose: 500 mg Midodrine (Midodrine 2.5 Mg Tablet) 5 mg PO TIDWM COUNT INCLUDES THE [facility] Last Admin: 09/30/22 17:18 Dose: 5 mg Ondansetron HCl (Ondansetron 4 Mg/2 Ml Vial) 4 mg IVP Q6HR PRN PRN Reason: Nausea / Vomiting Pantoprazole Sodium (Pantoprazole 40 Mg Tablet) 40 mg PO QDAC COUNT INCLUDES THE [facility] Last Admin: 10/01/22 06:13 Dose: 40 mg Polyethylene Glycol (Polyethylene Glycol 3350 17 Gm Packet) 17 gm PO DAILY COUNT INCLUDES THE [facility] Last Admin: 09/30/22 09:06 Dose: 17 gm Senna (Senna 8.6 Mg Tablet) 8.6 - 17.2 mg PO DAILY PRN PRN Reason: Constipation Sertraline HCl (Sertraline 50 Mg Tablet) 50 mg PO DAILY COUNT INCLUDES THE [facility] Last Admin: 09/30/22 09:22 Dose: 50 mg Sodium Chloride (Sodium Chloride Flush 0.9% 10 Ml Syringe) 10 ml IVP PRN PRN PRN Reason: NEEDED PER PROVIDER ORDERS Sodium Chloride (Sodium Chloride Flush 0.9% 10 Ml Syringe) 10 ml IVP 0100,0900,1700 COUNT INCLUDES THE [facility] Last Admin: 10/01/22 00:29 Dose: 10 ml Spironolactone (Spironolactone 25 Mg Tablet) 25 mg PO DAILY COUNT INCLUDES THE [facility] Last Admin: 09/30/22 09:20 Dose: 25 mg Tamsulosin HCl (Tamsulosin 0.4 Mg Capsule) 0.4 mg PO DAILY CATE Last Admin: 09/30/22 09:13 Dose: 0.4 mg Zolpidem Tartrate (Zolpidem 5 Mg Tablet) 5 mg PO QPM PRN PRN Reason: Insomnia Last Admin: 09/30/22 20:56 Dose: 5 mg Exam: Temperature 36.6, heart rate 75, blood pressure 102/90, respirations 20, 93% on room air. 5 foot 10 inches tall, 90.99 kg, do daily weights at this time, no output recorded at this time but he is voiding. For 24 hours he had 1810 in He is able to use his walker to walk to a cardiac chair, cantankerous. But cooperative. He knows where he is and why he is here. Neck is shotty adenopathy but there is no JVD. Lungs have coarse upper airway sounds, and is easily dyspneic with just trying to get out of chair or speak to me. He does not like to lay flat and prefers to sit upright. 's regular rate and rhythm, pulse between the 60s and 70s today. Systolic 111 sitting. 95 systolic standing. Abdomen soft, nontender. Hypoactive bowel sounds. Large obese pannus. Last bowel movement was September 29. He is incontinent of urine, uses a brief or pad. Extremities have 1+ pitting edema. He has ecchymosis and bruising over his hands and forearms. Neurologically he is easily confused, hard of hearing. Sodium 133, potassium 3.6, BUN 45, creatinine 1.4. Glucose 165, 175, 248 today BNP 521 White cell count 13.5, hemoglobin 7.3, hematocrit 22, platelet 135 Assessment/plan 1. NSTEMI. Diagnosis made by rising troponins and EKG showing new symmetric anterolateral T wave inversions. As well as patient's history of chest pain. History of ejection fraction 25%-30% due to large inferior and inferolateral old infarction and mild global hypokinesis 2015. Myocardial infarction 2021. No angio or PCI. Status post therapeutic Lovenox for 3 days. Now on DVT prophylaxis Lovenox. On aspirin, Plavix, statin. Coreg resumed September 30. Lasix and Aldactone resumed September 30. Plan: Prior to Coreg, Lasix, Aldactone being started, blood pressure was already 107, 106, 96 systolic. In the ER he was 121 systolic. We will continue these medications. But we will continue to monitor creatinine in the face of low ejection fraction, diuretics. Continue to monitor for orthostatic changes that could result in syncope. Continue to monitor for signs and symptoms of CHF, arrhythmia in a patient who just had an [place]. Echo will be done today. 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 2. Acute respiratory-failure with hypoxia He has been room air since yesterday. He was still requiring oxygen at midnight between September 29 and September 30 and has been room air since then. This was due to COVID, congestive heart failure, and exam findings of probable COPD. 3. Orthostatic hypotension. 40 mm drop going from supine to standing. Plan: Continue holding parameters on Lasix, spironolactone, Coreg. He received 500 cc bolus yesterday. Due to his continued bump in creatinine to 1.4, I will give him another 500 cc bolus. 4. COVID-pneumonia. Today is day 5 of remdesivir dosing. Today is also day 5/10 of Decadron dosing. He has been switched to p.o. Continue Mucinex, incentive spirometry. Isolation. Plan: No changes in orders 5. Pleuritic chest pain. Started September 28. And repeat chest x-ray September [address] pulmonary angiogram was already negative on admission. Has been on Lovenox. So low risk of PE. He is on Motrin as needed. We are avoiding narcotics. 6. Insomnia. On as needed Ambien. And we are avoiding vitals between 2330 and 0630 7. Heartburn. On Protonix and Tums 8. Protein calorie malnutrition. He has anorexia. He really does not want to eat very much. Nutrition services is working with him. 9. Diabetes mellitus. A1c 6.4%. On metformin. On sliding scale,. Tolerating Decadron. September 30 glucose 147, 184, 177, 201 This morning glucose 165 Plan: No change 10. Chronic systolic heart failure. Ejection fraction 25 to 30%. BNP is slightly up to 521 today. But creatinine is rising in the face of resuming his diuretics. No daily weight being done.He is on Coreg, Lasix. Entresto is being held since it is not formulary. I would add losartan or lisinopril but his blood pressure is low. Plan: Reiterate to nursing Daily weights, and strict I's and O's Normal saline 500 cc Echo today 11. Fall at home. He could not get off the toilet and when went to go help him, he kind of crumpled down. Abrasion on left ear. Orthostatic on the scene at home. On [place]ijay stocking. 12. Lactic acidosis resolved after IV fluids. May have been due to metformin.
[2022-10-01] MEDS: ENOXAPARIN 40 MG/0.4 ML SYRINGE SUBQ SCH (08:20)
[2022-10-01] MEDS: polyethylene glycoL 3350 17 GM PACKET PO SCH (08:20)
[2022-10-01] MEDS: INSULIN LISPRO 300 UNIT/3 ML PEN SUBQ SCH ×4 (08:21→21:34)
[2022-10-01] MEDS: MIDODRINE 2.5 MG TABLET PO SCH ×3 (08:22→17:27)
[2022-10-01] MEDS: SERTRALINE 50 MG TABLET PO SCH (08:24)
[2022-10-01] MEDS: SPIRONOLACTONE 25 MG TABLET PO SCH (08:24)
[2022-10-01] MEDS: carvediloL 3.125 MG TABLET PO SCH ×2 (08:24→21:33)
[2022-10-01] MEDS: CHOLECALCIFEROL 25 MCG TABLET PO SCH (08:24)
[2022-10-01] MEDS: SENNA 8.6 MG TABLET PO PRN (08:24)
[2022-10-01] MEDS: TAMSULOSIN 0.4 MG CAPSULE PO SCH (08:24)
[2022-10-01] MEDS: metFORMIN 500 MG TABLET PO SCH ×2 (08:24→17:27)
[2022-10-01] MEDS: dexAMETHasone 4 MG TABLET PO SCH (08:25)
[2022-10-01] MEDS: FUROSEMIDE 20 MG TABLET PO SCH (08:25)
[2022-10-01] MEDS: CLOPIDOGREL 75 MG TABLET PO SCH (08:25)
[2022-10-01] MEDS: ASPIRIN EC 81 MG TABLET PO SCH (08:26)
[2022-10-01] MEDS: CYANOCOBALAMIN 500 MCG TABLET PO SCH (08:26)
[2022-10-01] MEDS: CALCIUM CARBONATE CHEW 500 MG TABLET PO PRN ×2 (08:32→17:34)
[2022-10-01] MEDS: ACETAMINOPHEN 325 MG TABLET PO PRN (08:32)
[2022-10-01] MEDS: REMDESIVIR 100MG VIAL 100 MG in SODIUM CHLORIDE 0.9% 100ML 100 ML IV SCH (09:34)
[2022-10-01] MEDS: guaiFENesin 600 MG TABLET PO SCH ×2 (09:36→21:33)
[2022-10-01] MEDS: ATORVASTATIN 40 MG TABLET PO SCH (21:33)
[2022-10-02] MEDS: IBUPROFEN 600 MG TABLET PO SCH ×3 (00:28→12:43)
[2022-10-02] MEDS: SODIUM CHLORIDE FLUSH 0.9% 10 ML SYRINGE IVP SCH ×3 (00:28→18:13)
[2022-10-02] MEDS: ZOLPIDEM 5 MG TABLET PO PRN (00:28)
[2022-10-02] MEDS: CALCIUM CARBONATE CHEW 500 MG TABLET PO PRN ×2 (00:59→08:39)
[2022-10-02] MEDS: IPRATROPIUM/ALBUTEROL 3 ML NEB INH PRN (03:54)
[2022-10-02] MEDS: ACETAMINOPHEN 325 MG TABLET PO PRN ×3 (04:07→20:40)
[2022-10-02] MEDS: LIDOCAINE PATCH 5% TOP PRN (04:08)
[2022-10-02] MEDS: PANTOPRAZOLE 40 MG TABLET PO SCH (06:39)
[2022-10-02] MEDS: polyethylene glycoL 3350 17 GM PACKET PO SCH (08:35)
[2022-10-02] MEDS: ASPIRIN EC 81 MG TABLET PO SCH (08:36)
[2022-10-02] MEDS: FUROSEMIDE 20 MG TABLET PO SCH (08:36)
[2022-10-02] MEDS: dexAMETHasone 4 MG TABLET PO SCH (08:37)
[2022-10-02] MEDS: metFORMIN 500 MG TABLET PO SCH ×2 (08:38→18:10)
[2022-10-02] MEDS: SENNA 8.6 MG TABLET PO PRN (08:38)
[2022-10-02] MEDS: CHOLECALCIFEROL 25 MCG TABLET PO SCH (08:38)
[2022-10-02] MEDS: MIDODRINE 2.5 MG TABLET PO SCH ×3 (08:39→18:10)
[2022-10-02] MEDS: carvediloL 3.125 MG TABLET PO SCH ×2 (08:39→20:40)
[2022-10-02] MEDS: guaiFENesin 600 MG TABLET PO SCH ×2 (08:39→20:40)
[2022-10-02] MEDS: CLOPIDOGREL 75 MG TABLET PO SCH (08:40)
[2022-10-02] MEDS: CYANOCOBALAMIN 500 MCG TABLET PO SCH (08:40)
[2022-10-02] MEDS: TAMSULOSIN 0.4 MG CAPSULE PO SCH (08:40)
[2022-10-02] MEDS: SERTRALINE 50 MG TABLET PO SCH (08:40)
[2022-10-02] MEDS: ENOXAPARIN 40 MG/0.4 ML SYRINGE SUBQ SCH (08:40)
[2022-10-02] MEDS: SPIRONOLACTONE 25 MG TABLET PO SCH (08:40)
[2022-10-02] MEDS: INSULIN LISPRO 300 UNIT/3 ML PEN SUBQ SCH ×4 (08:42→20:41)
[2022-10-02 08:57] LABS: BASOPHILS % (AUTO) 0.1 %; HCT - HEMATOCRIT 22.4 % (42.0-52.0); HGB - HEMOGLOBIN 7.2 g/dL (14.0-18.0); LYMPHOCYTES # (AUTO) 1.3 10^3/uL (1.5-3.5); LYMPHOCYTES % (AUTO) 9.4 %; MEAN CORPUSCULAR HGB CONC 32.1 g/dL (32.0-36.0); MEAN CORPUSCULAR VOLUME 102.8 fL (80.0-94.0); MEAN PLATELET VOLUME 11.7 fL (7.4-11.4); MONOCYTES # (AUTO) 1.2 10^3/uL (0.0-1.0); MONOCYTES % (AUTO) 8.6 %; NEUTROPHILS # (AUTO) 10.9 10^3/uL (1.5-6.6); NEUTROPHILS % (AUTO) 80.7 %; NRBC ABSOLUTE COUNT (AUTO) 0.04 x10^3/uL; NUCLEATED RED BLOOD CELLS AUTO 0.3 /100WBC; PLT - PLATELET COUNT 148 10^3/uL (130-450); RED BLOOD COUNT 2.18 10^6/uL (4.70-6.10); RED CELL DISTRIBUTION WIDTH 12.7 % (12.0-15.0); WHITE BLOOD COUNT 13.4 x10^3/uL (4.8-10.8)
[2022-10-02] MEDS: ATORVASTATIN 40 MG TABLET PO SCH (20:40)
[2022-10-03] MEDS: ZOLPIDEM 5 MG TABLET PO PRN ×2 (00:23→21:57)
[2022-10-03] MEDS: SODIUM CHLORIDE FLUSH 0.9% 10 ML SYRINGE IVP SCH ×4 (00:23→17:18)
[2022-10-03] MEDS: PANTOPRAZOLE 40 MG TABLET PO SCH (05:31)
[2022-10-03] MEDS: ACETAMINOPHEN 325 MG TABLET PO PRN ×2 (05:31→10:58)
[2022-10-03 07:41] LABS: BASOPHILS % (AUTO) 0.1 %; EOSINOPHILS % (AUTO) 0.1 %; HCT - HEMATOCRIT 22.6 % (42.0-52.0); HGB - HEMOGLOBIN 7.4 g/dL (14.0-18.0); LYMPHOCYTES # (AUTO) 1.9 10^3/uL (1.5-3.5); LYMPHOCYTES % (AUTO) 13.7 %; MEAN CORPUSCULAR HEMOGLOBIN 33.3 pg (27.0-31.0); MEAN CORPUSCULAR HGB CONC 32.7 g/dL (32.0-36.0); MEAN CORPUSCULAR VOLUME 101.8 fL (80.0-94.0); MEAN PLATELET VOLUME 10.7 fL (7.4-11.4); MONOCYTES # (AUTO) 1.4 10^3/uL (0.0-1.0); MONOCYTES % (AUTO) 10.3 %; NEUTROPHILS % (AUTO) 73.6 %; NRBC ABSOLUTE COUNT (AUTO) 0.06 x10^3/uL; NUCLEATED RED BLOOD CELLS AUTO 0.4 /100WBC; PLT - PLATELET COUNT 181 10^3/uL (130-450); RED BLOOD COUNT 2.22 10^6/uL (4.70-6.10); RED CELL DISTRIBUTION WIDTH 12.8 % (12.0-15.0); WHITE BLOOD COUNT 13.6 x10^3/uL (4.8-10.8)
[2022-10-03] MEDS: MIDODRINE 2.5 MG TABLET PO SCH ×3 (07:58→17:17)
[2022-10-03] MEDS: metFORMIN 500 MG TABLET PO SCH ×2 (07:58→17:17)
[2022-10-03] MEDS: polyethylene glycoL 3350 17 GM PACKET PO SCH ×2 (09:00→19:59)
[2022-10-03] MEDS: CALCIUM CARBONATE CHEW 500 MG TABLET PO PRN (09:08)
[2022-10-03] MEDS: CYANOCOBALAMIN 500 MCG TABLET PO SCH (09:09)
[2022-10-03] MEDS: ASPIRIN EC 81 MG TABLET PO SCH (09:09)
[2022-10-03] MEDS: CHOLECALCIFEROL 25 MCG TABLET PO SCH (09:09)
[2022-10-03] MEDS: SERTRALINE 50 MG TABLET PO SCH (09:10)
[2022-10-03] MEDS: CLOPIDOGREL 75 MG TABLET PO SCH (09:10)
[2022-10-03] MEDS: FUROSEMIDE 20 MG TABLET PO SCH (09:14)
[2022-10-03] MEDS: DOCUSATE SODIUM 250 MG CAPSULE PO SCH (09:14)
[2022-10-03] MEDS: TAMSULOSIN 0.4 MG CAPSULE PO SCH (09:14)
[2022-10-03] MEDS: guaiFENesin 600 MG TABLET PO SCH ×2 (09:14→21:57)
[2022-10-03] MEDS: SPIRONOLACTONE 25 MG TABLET PO SCH (09:16)
[2022-10-03] MEDS: carvediloL 3.125 MG TABLET PO SCH ×2 (09:16→21:57)
[2022-10-03] MEDS: INSULIN LISPRO 300 UNIT/3 ML PEN SUBQ SCH ×4 (09:17→21:57)
[2022-10-03] MEDS: dexAMETHasone 4 MG TABLET PO SCH (09:18)
[2022-10-03] MEDS: IPRATROPIUM/ALBUTEROL 3 ML NEB INH PRN (09:53)
--- NOTE | 2022-10-03 16:18 | PROVIDER PROGRESS NOTE ---
Subjective - Prog Note Date Prog Note Date: 10/03/22 Prog Note Time: 16:15 - Subjective Subjective: October 03, 2022 4:11 PM Long conversation with he and his . He says that he is not ready to give up on life. But he just cannot believe how much ground he is lost this last week or 2. He is already had some cognitive deficits over the last couple of years. He is easily overwhelmed with information and to many people talking. He needs help with dressing, help with bathing. But he can feed himself. He can no longer drive. All of these are due to sequela of a stroke. He says that his most favorite thing to do spend time with his family. He does state that if he were ever to end up bedbound, and as disabled as he is now, he would not in [facility] to have intervention. In fact his comments that if it had not been for her making him come in, she doubts he would have come in for this admission. He reiterates he is a DNR. I then ask about the pain in his anterior chest wall. I explained to him that I am not seeing any pneumonia that is new. He the pain is not always pleuritic but sometimes is. He has had a CT of the chest and a CT of the abdomen and his solid organs appear acceptable. He says that mostly the pain comes on when he coughs. And the pain is in his anterior chest wall, epigastric region, and between his shoulder blades. That is the main thing that takes him down right now. Sometimes the pain is so bad that it comes in waves and it cuts off his air because of the severity of pain. It is sharp and stabbing. He is not eating well due to the pain. He is working with PT and OT. He is a contact-guard assist when we get him up out of the bed to the chair and is able to walk 2 steps. It is a very very slow progress and there is multiple rest stops to get him to that chair, but he was able to stand 5 minutes and brushes teeth and wash his hands today. Yesterday he had spontaneous ecchymosis that occurred pretty much from his axilla down his arm to his forearms. It was a solid black sheet of bruising. I stopped his Lovenox and stopped his Motrin. He is not happy about that because Motrin was the one thing that helped take away some of the pain that he was getting in his anterior chest wall. He is still on Plavix and aspirin. At care conference this morning I am reminded that he had an extra large dose of Lovenox a couple of days ago. His weight was recorded incorrectly and his milligram per kilogram dosing was with the extra weight and not his true weight. Current Medications - Current Medications Current Medications: Active Medications Acetaminophen (Acetaminophen 325 Mg Tablet) 650 mg PO Q4HR PRN PRN Reason: Pain 1 to 4, or Fever Last Admin: 10/03/22 10:58 Dose: 650 mg Albuterol/Ipratropium (Ipratropium/Albuterol 3 Ml Neb) 3 ml INH Q4HR PRN PRN Reason: Wheezing Last Admin: 10/03/22 09:53 Dose: 3 ml Aspirin (Aspirin Ec 81 Mg Tablet) 81 mg PO DAILY [facility] Last Admin: 10/03/22 09:09 Dose: 81 mg Atorvastatin Calcium (Atorvastatin 40 Mg Tablet) 40 mg PO QPM [facility] Last Admin: 10/02/22 20:40 Dose: 40 mg Calcium Carbonate/Glycine (Calcium Carbonate Chew 500 Mg Tablet) 500 mg PO TID PRN PRN Reason: Heartburn Last Admin: 10/03/22 09:08 Dose: 500 mg Carvedilol (Carvedilol 3.125 Mg Tablet) 6.25 mg PO BID [facility] Last Admin: 10/03/22 09:16 Dose: Not Given Cholecalciferol (Cholecalciferol 25 Mcg Tablet) 50 mcg PO DAILY [facility] Last Admin: 10/03/22 09:09 Dose: 50 mcg Clopidogrel Bisulfate (Clopidogrel 75 Mg Tablet) 75 mg PO DAILY [facility] Last Admin: 10/03/22 09:10 Dose: 75 mg Cyanocobalamin (Cyanocobalamin 500 Mcg Tablet) 500 mcg PO DAILY [facility] Last Admin: 10/03/22 09:09 Dose: 500 mcg Dexamethasone (Dexamethasone 4 Mg Tablet) 6 mg PO DAILY [facility] Last Admin: 10/03/22 09:18 Dose: 6 mg Docusate Sodium (Docusate Sodium 250 Mg Capsule) 250 - 500 mg PO DAILY [facility] Last Admin: 10/03/22 09:14 Dose: 250 mg Furosemide (Furosemide 20 Mg Tablet) 20 mg PO DAILY [facility] Last Admin: 10/03/22 09:14 Dose: Not Given Guaifenesin (Guaifenesin 600 Mg Tablet) 600 mg PO BID [facility] Last Admin: 10/03/22 09:14 Dose: 600 mg Insulin Human Lispro (Insulin Lispro 300 Unit/3 Ml Pen) 1 - 5 unit SUBQ 0800,1200,1700,2100 [facility]; Protocol Last Admin: 10/03/22 13:13 Dose: Not Given Lidocaine (Lidocaine Patch 5%) 1 patch TOP DAILY PRN PRN Reason: PAIN Last Admin: 10/02/22 04:08 Dose: 1 patch Metformin HCl (Metformin 500 Mg Tablet) 500 mg PO BIDWM [facility] Last Admin: 10/03/22 07:58 Dose: 500 mg Midodrine (Midodrine 2.5 Mg Tablet) 5 mg PO TIDWM [facility] Last Admin: 10/03/22 13:37 Dose: 5 mg Ondansetron HCl (Ondansetron 4 Mg/2 Ml Vial) 4 mg IVP Q6HR PRN PRN Reason: Nausea / Vomiting Pantoprazole Sodium (Pantoprazole 40 Mg Tablet) 40 mg PO QDAC [facility] Last Admin: 10/03/22 05:31 Dose: 40 mg Polyethylene Glycol (Polyethylene Glycol 3350 17 Gm Packet) 17 gm PO DAILY [facility] Last Admin: 10/03/22 09:00 Dose: Not Given Senna (Senna 8.6 Mg Tablet) 8.6 - 17.2 mg PO DAILY PRN PRN Reason: Constipation Last Admin: 10/02/22 08:38 Dose: 8.6 mg Sertraline HCl (Sertraline 50 Mg Tablet) 50 mg PO DAILY [facility] Last Admin: 10/03/22 09:10 Dose: 50 mg Sodium Chloride (Sodium Chloride Flush 0.9% 10 Ml Syringe) 10 ml IVP PRN PRN PRN Reason: NEEDED PER PROVIDER ORDERS Sodium Chloride (Sodium Chloride Flush 0.9% 10 Ml Syringe) 10 ml IVP 0100, 0900,1700 [facility] Last Admin: 10/03/22 09:20 Dose: Not Given Spironolactone (Spironolactone 25 Mg Tablet) 25 mg PO DAILY [facility] Last Admin: 10/03/22 09:16 Dose: Not Given Tamsulosin HCl (Tamsulosin 0.4 Mg Capsule) 0.4 mg PO DAILY [facility] Last Admin: 10/03/22 09:14 Dose: 0.4 mg Zolpidem Tartrate (Zolpidem 5 Mg Tablet) 5 mg PO QPM PRN PRN Reason: Insomnia Last Admin: 10/03/22 00:23 Dose: 5 mg metFORMIN [Glucophage] 1,000 mg ORAL BID 12/31/15 Atorvastatin Calcium 40 mg PO QPM 05/26/16 Acetaminophen [Aphen] 650 mg PO QID PRN 09/27/22 Aspirin [Aspirin EC] 81 mg PO DAILY 09/27/22 Carvedilol [Coreg] 6.25 mg PO BID 09/27/22 Cholecalciferol [Vitamin D3] 50 mcg PO DAILY 09/27/22 Clopidogrel [Plavix] 75 mg PO DAILY 09/27/22 Furosemide [Lasix] 20 mg PO DAILY 09/27/22 Sacubitril/Valsartan [Entresto 24 mg-26 mg Tablet] 1 each PO BID 09/27/22 Sertraline [Zoloft] 50 mg PO DAILY 09/27/22 Spironolactone [Aldactone] 25 mg PO DAILY 09/27/22 Tamsulosin [Flomax] 1 cap PO DAILY 09/27/22 Objective - Vital Signs/Intake & Output Reviewed Vital Signs: Yes Vital Signs: Vital Signs x48h Temp Pulse Pulse Resp BP Pulse Ox O2 Flow Rate 10/03/22 15:55 36.5 C 61 18 101/73 95 10/03/22 12:46 36.4 C L 71 20 121/69 94 10/03/22 09:54 68 20 2 10/03/22 09:26 70 107/78 2 10/03/22 09:13 64 127/82 H 2 10/03/22 09:10 46 L 104/87 H 2 Intake & Output: Intake & Output 09/30/22 10/01/22 10/02/22 10/03/22 23:59 23:59 23:59 23:59 Intake Total 1809 1933 640 300 Balance 1809 1933 640 300 - Objective General Appearance: positive: Alert (Fatigued appearing elderly gentleman whose eyes sometimes close in the middle of conversation), Mild distress, Other (Sitting upright in a chair. Blankets around the shoulders. TV on. at the bedside. Not as much respiratory distress as he had yesterday when he was flat out panting.) Eyes Bilateral: positive: PERRL, EOMI ENT: positive: No signs of dehydration Neck: positive: No JVD. negative: Stiff neck Respiratory: positive: Other (The same ecchymosis and bruising that we spotted on his bilateral arms yesterday afternoon is the same ecchymosis and bruising seen over the epigastrium, over the xiphoid process. And then it spreads bilaterally over both male gynecomastia breast. Deep purple and black. Pres sing on the rib cage d). negative: Chest non-tender (Pressing on the rib cage does not reproduce pain. Pressing on the ecchymosis makes him wince and says this is some of the pain. And then I have him take a deep breath and it reproduces the pain that he is feeling in the anterior chest wall.), No respiratory distress (Shallow respiration at 20. He says if it takes a deep breath it hurts too much in his anterior chest.) Cardiovascular: positive: Regular rate & rhythm, Other (2-second pause seen today on telemetry strip). negative: Tachycardia Abdomen: positive: Non-tender, No organomegaly, Nml bowel sounds, No distention Skin: positive: Warm, Dry Extremities: positive: Full ROM, Pedal edema Neurologic/Psychiatric: positive: CN's nml (2-12), Disoriented to time. negative: Motor nml (Very fatigued, slow-moving, but physical therapy reports that he is slowly inching upwards and progress) - Lab Results Fish Bones: 10/03/22 07:30 10/01/22 07:12 Other Labs: Lab Results x24hrs 10/03/22 10/03/22 10/03/22 Range/Units 11:09 07:37 07:30 WBC 13.6 H (4.8-10.8) x10^3/uL RBC 2.22 L (4.70-6.10) 10^6/uL Hgb 7.4 L (14.0-18.0) g/dL Hct 22.6 L (42.0-52.0) % MCV 101.8 H (80.0-94.0) fL MCH 33.3 H (27.0-31.0) pg MCHC 32.7 (32.0-36.0) g/dL RDW 12.8 (12.0-15.0) % Plt Count 181 (130-450) 10^3/uL MPV 10.7 (7.4-11.4) fL Neut # (Auto) 10.0 H (1.5-6.6) 10^3/uL Lymph # (Auto) 1.9 (1.5-3.5) 10^3/uL [place] # (Auto) 1.4 H (0.0-1.0) 10^3/uL Eos # (Auto) 0.0 (0.0-0.7) 10^3/uL Baso # (Auto) 0.0 (0.0-0.1) 10^3/uL Absolute Nucleated RBC 0.06 x10^3/uL Nucleated RBC % 0.4 /100WBC POC Whole Bld Glucose 122 H 137 H (70 - 100) mg/dL 10/02/22 10/02/22 Range/Units 20:37 17:05 WBC (4.8-10.8) x10^3/uL RBC (4.70-6.10) 10^6/uL Hgb (14.0-18.0) g/dL Hct (42.0-52.0) % MCV (80.0-94.0) fL MCH (27.0-31.0) pg MCHC (32.0-36.0) g/dL RDW (12.0-15.0) % Plt Count (130-450) 10^3/uL MPV (7.4-11.4) fL Neut # (Auto) (1.5-6.6) 10^3/uL Lymph # (Auto) (1.5-3.5) 10^3/uL [place] # (Auto) (0.0-1.0) 10^3/uL Eos # (Auto) (0.0-0.7) 10^3/uL Baso # (Auto) (0.0-0.1) 10^3/uL Absolute Nucleated RBC x10^3/uL Nucleated RBC % /100WBC POC Whole Bld Glucose 183 H 227 H (70 - 100) mg/dL ABX Reporting Has patient been on IV antibiotics over the past 48 hours?: No Assessment/Plan - Problem List (1) Hematoma of breast Impression: As well as hematoma of chest wall and upper abdominal wall. This gentleman was on aspirin, Plavix, Motrin, Lovenox. He was having strenuous coughing due to his COVID-pneumonia. I think all of this resulted in spontaneous bleeding subcutaneously and in his muscles. He has been in terrible pain because of it. He is unhappy that have had to stop the Motrin. He does not want opioids because he "does not want anything addictive". Unfortunate c annot give him any more nonsteroidals. I have been worried about this pain. But he has had solid organs that were visualized on CAT scan and nothing was there. No pleural effusions that were severe. No pericardial effusions. I do not believe he is having cardiac pain in the form of ischemia. I thought of pericarditis after an [place]. But after examining him today, not quite realizing the extent of his bruising, he has quite a bit of subcutaneous bleeding. Lovenox and Motrin stopped yesterday. I will try tramadol and small doses and see if that helps him. (2) NSTEMI (non-ST elevated myocardial infarction) Impression: Assessment/Plan: Records showed he has a Hx of systolic CHF, EF 25% on Echo in 2016. He had an [place] last year, did not undergo angio or did not require PCI by angio. He was on Plavix. He did have chest pain and dyspnea before admission. The ER EKG showed NSR, low voltage and no ST or T wave changes. EKG repeated 09/27 showed NSR, the same low voltage and new symmetric anterolateral T wave inversions consistent with an acute anterolateral [place]. His labs were all reviewed. Troponins peaked at 266 He was put on Lovenox therapeutic dose at admission, got that for 3 days. We changed Lovenox therapeutic BID dose down to a daily DVT prophylaxis dose. ASA 325 mg administered in ER, and now continuing 1 baby aspirin daily. We have resumed daily Plavix. Will likely give this plus Plavix for 3 mos A fasting lipid panel showed low numbers, consistent with poor nutrition. Treatment also consisted of aspirin, Plavix, statin. Lovenox was discontinued yesterday, Motrin was discontinued yesterday. Echocardiogram shows global changes, but ejection fraction is better than it was in the past. He is on Coreg 6.25 twice daily, Lasix 20 p.o. daily, spironolactone 25 p.o. daily This morning supine blood pressure 121/57. Sitting blood pressure 130/73. Standing blood pressure 124/59. This is the best he has been. If he still continues to be this way, I plan on starting him on an KATIA inhibitor tomorrow. Up until now, I have not received any word about his previous angiograms in spite of of our health apartment community assistant [facility] We will try again tomorrow. Patient will also continue to work with physical therapy to improve his strength and endurance. (3) Acute respiratory failure with hypoxia From congestive heart failure, COVID-pneumonia, COPD. His oxygen at times has come back down to room air. But then he goes right back up again to needing 1 or 2 L. If needed, he is willing to go home with oxygen. (4) Orthostatic hypotension His vital signs show a 40 mmHg drop in systolic blood pressure going from supine to standing. He reports being very tired and part of it could be from his low blood pressures At admission, EMS also noted orthostasis, he has needed iv fluids and his Lasix has been on hold Plan: We have holding parameters on his Lasix, spironolactone and Coreg. He has AILYN stockings. He has midodrine. Today is the first day he is actually had i mprovement with blood pressure. If he remains stable tomorrow, I may add a very low-dose of an KATIA inhibitor. (5) COVID 19 pneumonia He was initially on Paxil bid on September 26, then remdesivir September 27. He completed the remdesivir. Decadron will complete 10 days October 05. (6) Pleuritic chest pain He c/o this starting 09/28. CXR was repeated 09/29>> no new findings. Tylenol not effective. After reexamining him today, what I am finding is ecchymosis and hematomas of probably muscle, fascia, and skin from vigorous coughing. This is most likely what he was describing. Try tramadol (6) Insomnia He has had insomnia since being admitted. One reason was the nighttime interruptions. Another reason is not being in his own bed. no mVS checks between 2330 and 0630, in order to allow uninterrupted sleep. Benadryl changed to as needed Ambien from insomnia. He has not had any more complaints of insomnia (7) Heartburn Protonix and as needed Tums (8) Protein calorie malnutrition, unspecified Currently eating about 25% of his meals. Ensure has been added. Nutrition services has seen him. (9) DM His A1c came back at 6.4, indicating good control, just on his home Metformin doses He is on his home metformin plus sliding scale lispro glucose yesterday was 142, 123, 227, 183. Glucose today is 137 and 122. Appears to be controlled, no change (10) Chronic systolic heart failure As per history with Echo from 2016 showing EF of 25%. He also remembered that when he had the angiogram in his past, his EF was about 30%. Echo here with limited views. Uncomfortable and uncooperative during exam but he has moderate global hypokinesis with an ejection fraction of 40%. Right ventricle not well seen. His BNP is being followed now. Labs were all reviewed and BNP has decreased from 300 to 200, despite no Lasix, so doubtful he is in CHF exacerbation. Plan: Avoid over hydration Continue with his usual CHF meds, holding parameters if low BP (11) Fall at home He could not get off the toilet and his went to help him get off the toilet and he kind of crumpled down. He got an abrasion on the left ear from it. He was noted by EMS to be orthostatic and on time of arrival has received about 600 mL of normal saline IV. Plan: We will continue to monitor orthostatic vital signs, and treat the causes On TEDS stockings on in a.m, off at bedtime On Midodrine (12) Lactic acidosis Resolved after IV fluids Probably from hypotension and Metformin use. He also has a Hx of lactic acidosis unknown etiology in 2016
--- NOTE | 2022-10-03 17:50 | PROVIDER PROGRESS NOTE ---
Subjective - Prog Note Date Prog Note Date: 10/02/22 Prog Note Time: 17:47 - Subjective Pt reports feeling: No change Subjective: His main complaint continues to be the anterior chest wall pain, shortness of breath. And how slow he is moving. He is frustrated at being here and he would just like to go home. He is not eating well. He is working with physical therapy. He is exhausted with a simple effort of getting out of bed to get into a chair or to try to get to the bathroom in the toilet. Objective - Vital Signs/Intake & Output Reviewed Vital Signs: Yes Vital Signs: Vital Signs x48h Temp Pulse Pulse Resp BP Pulse Ox O2 Flow Rate 10/03/22 15:55 36.5 C 61 18 101/73 95 10/03/22 12:46 36.4 C L 71 20 121/69 94 10/03/22 09:54 68 20 2 Intake & Output: Intake & Output 09/30/22 10/01/22 10/02/22 10/03/22 23:59 23:59 23:59 23:59 Intake Total 1809 1933 640 300 Balance 1809 1933 640 300 - Objective General Appearance: positive: Alert, Mild distress (When he takes a deep breath and it hurts, it frightens him and he starts just panting. Low shallow respiration with this. If I distract him, he is panting slows down and is able to breathe normally), Other (Elderly, fatigued, white male, with slow movement, slow thought process. Can get quite irritated) Eyes Bilateral: positive: PERRL, EOMI ENT: positive: Pharynx nml, No signs of dehydration Neck: positive: No JVD Respiratory: positive: No respiratory distress, Wheezes (More a prolonged and exhalation but no outright wheeze), Rhonchi (Scattered. When I have him do a deep cough he winces and says he does not want to do that because it hurts too much) Cardiovascular: positive: Regular rate & rhythm Abdomen: positive: Non-tender, No organomegaly, Nml bowel sounds, No distention Skin: positive: Other (He has almost a "sleeve" of ecchymosis. Spontaneously erupted and it goes from his arm at the level of his armpit and goes all the way down and covers triceps, biceps, antecubital fossa, and down the forearm. Both arms.) Extremities: positive: Non-tender, Full ROM, Pedal edema Neurologic/Psychiatric: positive: Oriented x3 (But easily overwhelmed with information and then he will start getting irritated), CN's nml (2-12), Motor nml (But very slow to move. Easily tachypneic with this.) - Lab Results Fish Bones: 10/03/22 07:30 10/01/22 07:12 Other Labs: Lab Results x24hrs 10/03/22 10/03/22 10/03/22 Range/Units 17:10 11:09 07:37 WBC (4.8-10.8) x10^3/uL RBC (4.70-6.10) 10^6/uL Hgb (14.0-18.0) g/dL Hct (42.0-52.0) % MCV (80.0-94.0) fL MCH (27.0-31.0) pg MCHC (32.0-36.0) g/dL RDW (12.0-15.0) % Plt Count (130-450) 10^3/uL MPV (7.4-11.4) fL Neut # (Auto) (1.5-6.6) 10^3/uL Lymph # (Auto) (1.5-3.5) 10^3/uL [place] # (Auto) (0.0-1.0) 10^3/uL Eos # (Auto) (0.0-0.7) 10^3/uL Baso # (Auto) (0.0-0.1) 10^3/uL Absolute Nucleated RBC x10^3/uL Nucleated RBC % /100WBC POC Whole Bld Glucose 219 H 122 H 137 H (70 - 100) mg/dL 10/03/22 10/02/22 Range/Units 07:30 20:37 WBC 13.6 H (4.8-10.8) x10^3/uL RBC 2.22 L (4.70-6.10) 10^6/uL Hgb 7.4 L (14.0-18.0) g/dL Hct 22.6 L (42.0-52.0) % MCV 101.8 H (80.0-94.0) fL MCH 33.3 H (27.0-31.0) pg MCHC 32.7 (32.0-36.0) g/dL RDW 12.8 (12.0-15.0) % Plt Count 181 (130-450) 10^3/uL MPV 10.7 (7.4-11.4) fL Neut # (Auto) 10.0 H (1.5-6.6) 10^3/uL Lymph # (Auto) 1.9 (1.5-3.5) 10^3/uL [place] # (Auto) 1.4 H (0.0-1.0) 10^3/uL Eos # (Auto) 0.0 (0.0-0.7) 10^3/uL Baso # (Auto) 0.0 (0.0-0.1) 10^3/uL Absolute Nucleated RBC 0.06 x10^3/uL Nucleated RBC % 0.4 /100WBC POC Whole Bld Glucose 183 H (70 - 100) mg/dL ABX Reporting Has patient been on IV antibiotics over the past 48 hours?: No Assessment/Plan - Problem List (1) NSTEMI (non-ST elevated myocardial infarction) Impression: Diagnosis made by rising troponins and EKG showing new symmetric anterolateral T wave inversions. As well as patient's history of chest pain. History of ejection fraction 25%-30% due to large inferior and inferolateral old infarction and mild global hypokinesis 2015. Myocardial infarction 2021. No angio or PCI. Status post therapeutic Lovenox for 3 days. Now on DVT prophylaxis Lovenox. On aspirin, Plavix, statin. Coreg resumed September 30. Lasix and Aldactone resumed September 30. Plan: Prior to Coreg, Lasix, Aldactone being started, blood pressure was already 107, 106, 96 systolic. In the ER he was 121 systolic. We will continue these medications. But we will continue to monitor creatinine in the face of low ejection fraction, diuretics. Continue to monitor for orthostatic changes that could result in syncope. Continue to monitor for signs and symptoms of CHF, arrhythmia in a patient who just had an [place]. Echo was difficult to do because he just did not like having the probe. He has global hypokinesis with an ejection fraction of 40%. Medications for his NSTEMI included the Plavix, Lovenox, aspirin. He is also on Motrin for pleuritic chest pain. He now has spontaneous ecchymosis of his arms that is alarming. So I am stopping the Motrin and I am stopping the Lovenox. Continue statin, Coreg, Aldactone, and consider an KATIA inhibitor once his blood pressure stabilizes. We are continuing to encourage him to work with physical therapy. He is very deconditioned, weak, and minimal activity results in shortness of breath and chest pain. 2. Acute respiratory-failure with hypoxia He is showing slow improvement. He was on room air, but then had to go back on 1 to 2 L. His hypoxia is due to congestive heart failure, COPD, COVID. I am hoping by the time of discharge he will be able to come off of his oxygen. 3. Orthostatic hypotension. 40 mm drop going from supine to standing. Plan: Continue holding parameters on Lasix, spironolactone, Coreg. He has been given 500 cc boluses for blood pressure as well as creatinine. But I am trying to hold off on giving him so I do not put him back into congestive heart failure. 4. COVID-pneumonia. He is completed 5 days of remdesivir. Still completing his Decadron. He has been switched to p.o. Continue Mucinex, incentive spirometry. Isolation. Plan: No changes in orders 5. Pleuritic chest pain. Started September 28. And repeat chest x-ray September [address] pulmonary angiogram was already negative on admission. Has been on Lovenox. So low risk of PE. He is on Motrin as needed. We are avoiding narcotics. Unfortunately Hallie stop the Motrin. He is significant bleeding on subcutaneous areas of his arms. 6. Insomnia. On as needed Ambien. And we are avoiding vitals between 2330 and 0630 7. Heartburn. On Protonix and Tums 8. Protein calorie malnutrition. He has anorexia. He really does not want to eat very much. Nutrition services is working with him. 9. Diabetes mellitus. A1c 6.4%. On metformin. On sliding scale,. Tolerating Decadron. October 01 glucose was 165, 175, 248, 184 Today's glucose is 142, 123, 227 Plan: No change 10. Chronic systolic heart failure. Ejection fraction 25 to 30% In the past. Current echocardiogram shows global hypokinesis with an ejection fraction of 40%.. BNP is slightly up . But creatinine is rising in the face of resuming his diuretics. No daily weight being done.He is on Coreg, Lasix. Entresto is being held since it is not formulary. I would add losartan or lisinopril but his blood pressure is low. Plan: Reiterate to nursing Daily weights, and strict I's and O's 11. Fall at home. He could not get off the toilet and when went to go help him, he kind of crumpled down. Abrasion on left ear. Orthostatic on the scene at home. On Vijay stocking. 12. Lactic acidosis resolved after IV fluids. May have been due to metformin.
[2022-10-03] MEDS: ATORVASTATIN 40 MG TABLET PO SCH (21:57)
[2022-10-03] MEDS: traMADol 50 MG TABLET PO PRN (21:57)
[2022-10-04] MEDS: SODIUM CHLORIDE FLUSH 0.9% 10 ML SYRINGE IVP SCH ×3 (02:30→17:15)
[2022-10-04] MEDS: PANTOPRAZOLE 40 MG TABLET PO SCH (07:35)
[2022-10-04] MEDS: INSULIN LISPRO 300 UNIT/3 ML PEN SUBQ SCH ×4 (08:45→21:37)
[2022-10-04 09:12] LABS: BASOPHILS % (AUTO) 0.1 %; EOSINOPHILS % (AUTO) 0.7 %; HCT - HEMATOCRIT 23.4 % (42.0-52.0); HGB - HEMOGLOBIN 7.6 g/dL (14.0-18.0); LYMPHOCYTES % (AUTO) 17.4 %; MEAN CORPUSCULAR HEMOGLOBIN 33.2 pg (27.0-31.0); MEAN CORPUSCULAR HGB CONC 32.5 g/dL (32.0-36.0); MEAN CORPUSCULAR VOLUME 102.2 fL (80.0-94.0); MEAN PLATELET VOLUME 10.5 fL (7.4-11.4); MONOCYTES % (AUTO) 10.1 %; NEUTROPHILS % (AUTO) 67.6 %; PLT - PLATELET COUNT 207 10^3/uL (130-450); RED BLOOD COUNT 2.29 10^6/uL (4.70-6.10); RED CELL DISTRIBUTION WIDTH 13.5 % (12.0-15.0); WHITE BLOOD COUNT 13.8 x10^3/uL (4.8-10.8)
[2022-10-04 09:13] LABS: SLIDE REVIEW? Indicated
[2022-10-04 09:14] LABS: ABNORMAL LYMPHS % (MANUAL) 0 %
[2022-10-04 09:33] LABS: BAND NEUTROPHILS % (MANUAL) 1 %; LYMPHOCYTES % (MANUAL) 29 %; METAMYELOCYTES % (MANUAL) 1 %; MONOCYTES # (MANUAL) 0.7 10^3/uL (0.0-1.0); MYELOCYTES % (MANUAL) 1 %; NEUTROPHILS # (MANUAL) 8.8 10^3/uL (1.5-6.6)
[2022-10-04 09:36] LABS: PLATELET ESTIMATE, MANUAL NORMAL (130-450,000) (NORMAL); PLATELET MORPHOLOGY NORMAL APPEARANCE (NORMAL); WBC MORPHOLOGY (MULTIPLE) NORMAL APPEARANCE (NORMAL)
[2022-10-04 09:37] LABS: DIFFERENTIAL COMMENT MANUAL DIFFERENTIAL
[2022-10-04] MEDS: CHOLECALCIFEROL 25 MCG TABLET PO SCH (10:30)
[2022-10-04] MEDS: carvediloL 3.125 MG TABLET PO SCH ×2 (10:30→21:37)
[2022-10-04] MEDS: MIDODRINE 2.5 MG TABLET PO SCH ×3 (10:30→17:14)
[2022-10-04] MEDS: SENNA 8.6 MG TABLET PO PRN (10:31)
[2022-10-04] MEDS: CLOPIDOGREL 75 MG TABLET PO SCH (10:31)
[2022-10-04] MEDS: TAMSULOSIN 0.4 MG CAPSULE PO SCH (10:31)
[2022-10-04] MEDS: metFORMIN 500 MG TABLET PO SCH ×2 (10:31→17:15)
[2022-10-04] MEDS: FUROSEMIDE 20 MG TABLET PO SCH (10:31)
[2022-10-04] MEDS: dexAMETHasone 4 MG TABLET PO SCH (10:31)
[2022-10-04] MEDS: guaiFENesin 600 MG TABLET PO SCH ×2 (10:31→21:37)
[2022-10-04] MEDS: ASPIRIN EC 81 MG TABLET PO SCH (10:31)
[2022-10-04] MEDS: SERTRALINE 50 MG TABLET PO SCH (10:31)
[2022-10-04] MEDS: traMADol 50 MG TABLET PO PRN ×2 (10:32→21:37)
[2022-10-04] MEDS: polyethylene glycoL 3350 17 GM PACKET PO SCH (10:33)
[2022-10-04] MEDS: SPIRONOLACTONE 25 MG TABLET PO SCH (10:33)
[2022-10-04] MEDS: DOCUSATE SODIUM 250 MG CAPSULE PO SCH (10:33)
[2022-10-04] MEDS: CYANOCOBALAMIN 500 MCG TABLET PO SCH (10:33)
[2022-10-04] MEDS: ACETAMINOPHEN 325 MG TABLET PO PRN (12:32)
--- NOTE | 2022-10-04 15:54 | PROVIDER PROGRESS NOTE ---
Subjective - Prog Note Date Prog Note Date: 10/04/22 Prog Note Time: 15:52 - Subjective Pt reports feeling: Improved Subjective: the tramadol is working he thinks. less pain and can sit more comfortably, can breath w less chest wall and upper abd wall pain. more cheerful. Current Medications - Current Medications Current Medications: Active Medications Acetaminophen (Acetaminophen 325 Mg Tablet) 650 mg PO Q4HR PRN PRN Reason: Pain 1 to 4, or Fever Last Admin: 10/04/22 12:32 Dose: 650 mg Albuterol/Ipratropium (Ipratropium/Albuterol 3 Ml Neb) 3 ml INH Q4HR PRN PRN Reason: Wheezing Last Admin: 10/03/22 09:53 Dose: 3 ml Aspirin (Aspirin Ec 81 Mg Tablet) 81 mg PO DAILY [facility] Last Admin: 10/04/22 10:31 Dose: 81 mg Atorvastatin Calcium (Atorvastatin 40 Mg Tablet) 40 mg PO QPM [facility] Last Admin: 10/03/22 21:57 Dose: 40 mg Calcium Carbonate/Glycine (Calcium Carbonate Chew 500 Mg Tablet) 500 mg PO TID PRN PRN Reason: Heartburn Last Admin: 10/03/22 09:08 Dose: 500 mg Carvedilol (Carvedilol 3.125 Mg Tablet) 6.25 mg PO BID [facility] Last Admin: 10/04/22 10:30 Dose: 6.25 mg Cholecalciferol (Cholecalciferol 25 Mcg Tablet) 50 mcg PO DAILY [facility] Last Admin: 10/04/22 10:30 Dose: 50 mcg Clopidogrel Bisulfate (Clopidogrel 75 Mg Tablet) 75 mg PO DAILY [facility] Last Admin: 10/04/22 10:31 Dose: 75 mg Cyanocobalamin (Cyanocobalamin 500 Mcg Tablet) 500 mcg PO DAILY [facility] Last Admin: 10/04/22 10:33 Dose: 500 mcg Dexamethasone (Dexamethasone 4 Mg Tablet) 6 mg PO DAILY [facility] Last Admin: 10/04/22 10:31 Dose: 6 mg Docusate Sodium (Docusate Sodium 250 Mg Capsule) 250 - 500 mg PO DAILY [facility] Last Admin: 10/04/22 10:33 Dose: 250 mg Furosemide (Furosemide 20 Mg Tablet) 20 mg PO DAILY [facility] Last Admin: 10/04/22 10:31 Dose: 20 mg Guaifenesin (Guaifenesin 600 Mg Tablet) 600 mg PO BID [facility] Last Admin: 10/04/22 10:31 Dose: 600 mg Insulin Human Lispro (Insulin Lispro 300 Unit/3 Ml Pen) 1 - 5 unit SUBQ 0800,1200,1700,2100 [facility]; Protocol Last Admin: 10/04/22 13:16 Dose: 1 unit Lidocaine (Lidocaine Patch 5%) 1 patch TOP DAILY PRN PRN Reason: PAIN Last Admin: 10/02/22 04:08 Dose: 1 patch Metformin HCl (Metformin 500 Mg Tablet) 500 mg PO BIDWM [facility] Last Admin: 10/04/22 10:31 Dose: 500 mg Midodrine (Midodrine 2.5 Mg Tablet) 5 mg PO TIDWM [facility] Last Admin: 10/04/22 12:32 Dose: 5 mg Ondansetron HCl (Ondansetron 4 Mg/2 Ml Vial) 4 mg IVP Q6HR PRN PRN Reason: Nausea / Vomiting Pantoprazole Sodium (Pantoprazole 40 Mg Tablet) 40 mg PO QDAC [facility] Last Admin: 10/04/22 07:35 Dose: 40 mg Polyethylene Glycol (Polyethylene Glycol 3350 17 Gm Packet) 17 gm PO DAILY [facility] Last Admin: 10/04/22 10:33 Dose: 17 gm Senna (Senna 8.6 Mg Tablet) 8.6 - 17.2 mg PO DAILY PRN PRN Reason: Constipation Last Admin: 10/04/22 10:31 Dose: 17.2 mg Sertraline HCl (Sertraline 50 Mg Tablet) 50 mg PO DAILY [facility] Last Admin: 10/04/22 10:31 Dose: 50 mg Sodium Chloride (Sodium Chloride Flush 0.9% 10 Ml Syringe) 10 ml IVP PRN PRN PRN Reason: NEEDED PER PROVIDER ORDERS Sodium Chloride (Sodium Chloride Flush 0.9% 10 Ml Syringe) 10 ml IVP 0100,0900,1700 [facility] Last Admin: 10/04/22 10:33 Dose: 10 ml Spironolactone (Spironolactone 25 Mg Tablet) 25 mg PO DAILY [facility] Last Admin: 10/04/22 10:33 Dose: 25 mg Tamsulosin HCl (Tamsulosin 0.4 Mg Capsule) 0.4 mg PO DAILY [facility] Last Admin: 10/04/22 10:31 Dose: 0.4 mg Tramadol HCl (Tramadol 50 Mg Tablet) 50 mg PO Q4HR PRN PRN Reason: PAIN Last Admin: 10/04/22 10:32 Dose: 50 mg Zolpidem Tartrate (Zolpidem 5 Mg Tablet) 5 mg PO QPM PRN PRN Reason: Insomnia Last Admin: 10/03/22 21:57 Dose: 5 mg metFORMIN [Glucophage] 1,000 mg ORAL BID 12/31/15 Atorvastatin Calcium 40 mg PO QPM 05/26/16 Acetaminophen [Aphen] 650 mg PO QID PRN 09/27/22 Aspirin [Aspirin EC] 81 mg PO DAILY 09/27/22 Carvedilol [Coreg] 6.25 mg PO BID 09/27/22 Cholecalciferol [Vitamin D3] 50 mcg PO DAILY 09/27/22 Clopidogrel [Plavix] 75 mg PO DAILY 09/27/22 Furosemide [Lasix] 20 mg PO DAILY 09/27/22 Sacubitril/Valsartan [Entresto 24 mg-26 mg Tablet] 1 each PO BID 09/27/22 Sertraline [Zoloft] 50 mg PO DAILY 09/27/22 Spironolactone [Aldactone] 25 mg PO DAILY 09/27/22 Tamsulosin [Flomax] 1 cap PO DAILY 09/27/22 Objective - Vital Signs/Intake & Output Reviewed Vital Signs: Yes Vital Signs: Vital Signs x48h Temp Pulse Resp BP Pulse Ox O2 Flow Rate 10/04/22 11:44 2 10/04/22 11:42 36.6 C 69 18 136/81 H 96 2 10/04/22 10:27 83 18 125/72 10/04/22 08:10 36.5 C 66 18 140/92 H 97 2 Intake & Output: Intake & Output 10/01/22 10/02/22 10/03/22 10/04/22 23:59 23:59 23:59 23:59 Intake Total 1933 640 500 320 Output Total 100 Balance 1933 640 500 220 - Objective General Appearance: positive: No acute distress, Alert, Other (eyes are not closing while he speaks to me today. not panting when he speaks, and no waves of pain) Eyes Bilateral: positive: PERRL, EOMI ENT: positive: No signs of dehydration Neck: positive: No JVD. negative: Stiff neck, Carotid bruit Respiratory: positive: No respiratory distress, Rhonchi (faint in R mid lung and clear w 3rd breath), Other ( r lung rub today at the base.). negative: Wheezes, Rales Cardiovascular: positive: Regular rate & rhythm Abdomen: positive: Non-tender, No organomegaly, Nml bowel sounds, No distention Skin: positive: Other (confluent bruise from triceps to forearm on both arms, dense purple and the one on biceps and ant arms . Breasts, sternum, eigastric abd wall purple and achey) Extremities: positive: Full ROM, Pedal edema (trace around ankles) Neurologic/Psychiatric: positive: Oriented x3, CN's nml (2-12), Motor nml - Lab Results Fish Bones: 10/04/22 08:51 10/01/22 07:12 Other Labs: Lab Results x24hrs 10/04/22 10/04/22 10/04/22 Range/Units 11:51 08:51 08:06 WBC 13.8 H (4.8-10.8) x10^3/uL RBC 2.29 L (4.70-6.10) 10^6/uL Hgb 7.6 L (14.0-18.0) g/dL Hct 23.4 L (42.0-52.0) % MCV 102.2 H (80.0-94.0) fL MCH 33.2 H (27.0-31.0) pg MCHC 32.5 (32.0-36.0) g/dL RDW 13.5 (12.0-15.0) % Plt Count 207 (130-450) 10^3/uL MPV 10.5 (7.4-11.4) fL Neut # (Auto) Not Reportable Lymph # (Auto) Not Reportable Buchanan # (Auto) Not Reportable Eos # (Auto) Not Reportable Baso # (Auto) Not Reportable Absolute Nucleated RBC Not Reportable Total Counted 100 Band Neuts % (Manual) 1 (0 - 10) % Abnorm Lymph % (Manual) 0 % Metamyelocytes % 1 H ( - 0) % Myelocytes % 1 H ( - 0) % Nucleated RBC % Not Reportable Neutrophils # (Manual) 8.8 H (1.5-6.6) 10^3/uL Lymphocytes # (Manual) 4.0 H (1.5-3.5) 10^3/uL Monocytes # (Manual) 0.7 (0.0-1.0) 10^3/uL Eosinophils # (Manual) 0.0 (0-0.7) 10^3/uL Basophils # (Manual) 0.0 (0-0.1) 10^3/uL Differential Comment MANUAL DIFFERENTIAL Manual Slide Review Indicated WBC Morphology NORMAL APPEARANCE (NORMAL) Platelet Estimate NORMAL (130-450,000) (NORMAL) Platelet Morphology NORMAL APPEARANCE (NORMAL) RBC Morph Micro Appear 1+ MACROCYTOSIS (NORMAL) POC Whole Bld Glucose 149 H 128 H (70 - 100) mg/dL 10/03/22 10/03/22 Range/Units 21:29 17:10 WBC (4.8-10.8) x10^3/uL RBC (4.70-6.10) 10^6/uL Hgb (14.0-18.0) g/dL Hct (42.0-52.0) % MCV (80.0-94.0) fL MCH (27.0-31.0) pg MCHC (32.0-36.0) g/dL RDW (12.0-15.0) % Plt Count (130-450) 10^3/uL MPV (7.4-11.4) fL Neut # (Auto) Lymph # (Auto) Buchanan # (Auto) Eos # (Auto) Baso # (Auto) Absolute Nucleated RBC Total Counted Band Neuts % (Manual) (0 - 10) % Abnorm Lymph % (Manual) % Metamyelocytes % ( - 0) % Myelocytes % ( - 0) % Nucleated RBC % Neutrophils # (Manual) (1.5-6.6) 10^3/uL Lymphocytes # (Manual) (1.5-3.5) 10^3/uL Monocytes # (Manual) (0.0-1.0) 10^3/uL Eosinophils # (Manual) (0-0.7) 10^3/uL Basophils # (Manual) (0-0.1) 10^3/uL Differential Comment Manual Slide Review WBC Morphology (NORMAL) Platelet Estimate (NORMAL) Platelet Morphology (NORMAL) RBC Morph Micro Appear (NORMAL) POC Whole Bld Glucose 141 H 219 H (70 - 100) mg/dL ABX Reporting Has patient been on IV antibiotics over the past 48 hours?: No Assessment/Plan - Problem List (1) Hematoma of breast Impression: As well as hematoma of chest wall and upper abdominal wall. This gentleman was on aspirin, Plavix, Motrin, Lovenox. He was having strenuous coughing due to his COVID-pneumonia. I think all of this resulted in spontaneous bleeding subcutaneously and in his muscles. He has been in terrible pain because of it. He was not unhappy that I stopped the Motrin. He does not want opioids because he "does not want anything addictive". Unfortunate cannot give him any more nonsteroidals. I have been worried about this pain. But his solid organs that were visualized on CAT scan were without pathology. No pleural effusions that were severe. No pericardial effusions. I do not believe he is having cardiac pain in the form of ischemia. I thought of pericarditis after an OH. But after examining him 10/03 ,not quite realizing the extent of his bruising, he had quite a bit of subcutaneous bleeding. Lovenox and Motrin were stopped and I started tramadol. This seems to have helped after re-evaluation today. Overall he appeared more comfortable. (2) NSTEMI (non-ST elevated myocardial infarction) Impression: Assessment/Plan: Records showed he has a Hx of systolic CHF, EF 25% on Echo in 2016. He had an OH last year, did not undergo angio or did not require PCI by angio. He was on Plavix. He did have chest pain and dyspnea before admission. The ER EKG showed NSR, low voltage and no ST or T wave changes. EKG repeated 09/27 showed NSR, the same low voltage and new symmetric anterolateral T wave inversions consistent with an acute anterolateral OH. His labs were all reviewed. Troponins peaked at 266 He was put on Lovenox therapeutic dose at admission, got that for 3 days. We changed Lovenox therapeutic BID dose down to a daily DVT prophylaxis dose. ASA 325 mg administered in ER, and now continuing 1 baby aspirin daily. We have resumed daily Plavix. Will likely give this plus Plavix for 3 mos A fasting lipid panel showed low numbers, consistent with poor nutrition. Treatment also consisted of aspirin, Plavix, statin. Lovenox was discontinued 2/ and Motrin discontinued 2/. Echocardiogram shows global changes, but ejection fraction is better than it was in the past. He has moderate global hypokinesis and his ejection fraction is 40% visually. He is on Coreg 6.25 twice daily, Lasix 20 p.o. daily, spironolactone 25 p.o. daily Up until now, I have not received any word about his previous angiograms in spite of of our health marketing community liaison request to the [place]. We sent another request to day. There is been no records sent yet. Patient will also continue to work with physical therapy to improve his strength and endurance. We will add KATIA inhibitor today since blood pressure is stable. (3) Acute respiratory failure with hypoxia From congestive heart failure, COVID-pneumonia, COPD. His oxygen at times has come back down to room air. But then he goes right back up again to needing 1 or 2 L. If needed, he is willing to go home with oxygen. (4) Orthostatic hypotension His vital signs show a 40 mmHg drop in systolic blood pressure going from supine to standing. He reports being very tired and part of it could be from his low blood pressures At admission, EMS also noted orthostasis, he has needed iv fluids and his Lasix has been on hold Blood pressure has been solid today. Systolic varies between 125 and up to 140. Yesterday there were no orthostatic changes. Plan: We have holding parameters on his Lasix, spironolactone and Coreg. He has AILYN stockings. He has midodrine. Today is the first day he is actually had i mprovement with blood pressure. Since he is stable, I will add KATIA inhibitor today. Low-dose.. (5) COVID 19 pneumonia He was initially on Paxlovid on September 26, then remdesivir September 27. He completed the remdesivir. Decadron will complete 10 days October 05. (6) Pleuritic chest pain He c/o this starting 09/28. CXR was repeated 09/29>> no new findings. Tylenol not effective. After reexamining him 10/03, what I found was ecchymosis and hematomas of probably muscle, fascia, and skin from vigorous coughing. This is most likely what he was describing. Tramadol is effective at controlling pain (6) Insomnia He has had insomnia since being admitted. One reason was the nighttime interruptions. Another reason is not being in his own bed. no mVS checks between 2330 and 0630, in order to allow uninterrupted sleep. Jasen changed to as needed Ambien from insomnia. He has not had any more complaints of insomnia (7) Heartburn Protonix and as needed Tums (8) Protein calorie malnutrition, unspecified Currently eating about 25% of his meals. Ensure has been added. Nutrition services has seen him. (9) DM His A1c came back at 6.4, indicating good control, just on his home Metformin doses He is on his home metformin plus sliding scale lispro Glucose yesterday 137, 122, 219, 141. Today glucose 128, 149, 243 Appears to be controlled, no change (10) Chronic systolic heart failure As per history with Echo from 2016 showing EF of 25%. He also remembered that when he had the angiogram in his past, his EF was about 30%. Echo here with limited views. Uncomfortable and uncooperative during exam but he has moderate global hypokinesis with an ejection fraction of 40%. Right ventricle not well seen. His BNP is being followed now. Labs were all reviewed and BNP has decreased from 300 to 200, despite no Lasix, so doubtful he is in CHF exacerbation. Plan: Avoid over hydration Continue with his usual CHF meds, holding parameters if low BP Adding KATIA inhibitor today (11) Fall at home He could not get off the toilet and his went to help him get off the toilet and he kind of crumpled down. He got an abrasion on the left ear from it. He was noted by EMS to be orthostatic and on time of arrival has received about 600 mL of normal saline IV. Plan: We will continue to monitor orthostatic vital signs, and treat the causes On TEDS stockings on in a.m, off at bedtime On Midodrine If he does well with the addition of the KATIA inhibitor, and his orthostatic hypotension has resolved, anticipate discharge in the next 48 hours. (12) Lactic acidosis Resolved after IV fluids Probably from hypotension and Metformin use. He also has a Hx of lactic acidosis unknown etiology in 2016
[2022-10-04] MEDS: lisinopriL 5 MG TABLET PO SCH (18:14)
[2022-10-04] MEDS: ATORVASTATIN 40 MG TABLET PO SCH (21:37)
[2022-10-04] MEDS: ZOLPIDEM 5 MG TABLET PO PRN (21:37)
[2022-10-05] MEDS: CALCIUM CARBONATE CHEW 500 MG TABLET PO PRN (03:57)
[2022-10-05] MEDS: SODIUM CHLORIDE FLUSH 0.9% 10 ML SYRINGE IVP SCH ×3 (03:57→17:13)
[2022-10-05] MEDS: PANTOPRAZOLE 40 MG TABLET PO SCH (05:29)
[2022-10-05] MEDS: traMADol 50 MG TABLET PO PRN ×2 (05:40→21:35)
[2022-10-05 08:14] LABS: BASOPHILS % (AUTO) 0.2 %; EOSINOPHILS % (AUTO) 0.9 %; HCT - HEMATOCRIT 26.2 % (42.0-52.0); HGB - HEMOGLOBIN 8.3 g/dL (14.0-18.0); LYMPHOCYTES % (AUTO) 17.3 %; MEAN CORPUSCULAR HEMOGLOBIN 33.5 pg (27.0-31.0); MEAN CORPUSCULAR HGB CONC 31.7 g/dL (32.0-36.0); MEAN CORPUSCULAR VOLUME 105.6 fL (80.0-94.0); MEAN PLATELET VOLUME 10.6 fL (7.4-11.4); MONOCYTES % (AUTO) 10.1 %; NEUTROPHILS % (AUTO) 66.7 %; PLT - PLATELET COUNT 231 10^3/uL (130-450); RED BLOOD COUNT 2.48 10^6/uL (4.70-6.10); RED CELL DISTRIBUTION WIDTH 13.8 % (12.0-15.0); WHITE BLOOD COUNT 15.3 x10^3/uL (4.8-10.8)
[2022-10-05 08:26] LABS: CALCIUM 8.7 mg/dL (8.5-10.3); POTASSIUM 3.6 mmol/L (3.5-5.0)
[2022-10-05] MEDS: INSULIN LISPRO 300 UNIT/3 ML PEN SUBQ SCH ×4 (09:02→21:35)
[2022-10-05] MEDS: DOCUSATE SODIUM 250 MG CAPSULE PO SCH (09:04)
[2022-10-05] MEDS: carvediloL 3.125 MG TABLET PO SCH ×2 (09:04→21:34)
[2022-10-05] MEDS: polyethylene glycoL 3350 17 GM PACKET PO SCH (09:05)
[2022-10-05] MEDS: FUROSEMIDE 20 MG TABLET PO SCH (09:05)
[2022-10-05] MEDS: lisinopriL 5 MG TABLET PO SCH (09:05)
[2022-10-05] MEDS: metFORMIN 500 MG TABLET PO SCH ×2 (09:14→17:13)
[2022-10-05] MEDS: ASPIRIN EC 81 MG TABLET PO SCH (09:14)
[2022-10-05] MEDS: CLOPIDOGREL 75 MG TABLET PO SCH (09:14)
[2022-10-05] MEDS: MIDODRINE 2.5 MG TABLET PO SCH ×3 (09:14→17:13)
[2022-10-05] MEDS: SERTRALINE 50 MG TABLET PO SCH (09:15)
[2022-10-05 09:18] LABS: SLIDE REVIEW? Indicated
[2022-10-05] MEDS: SPIRONOLACTONE 25 MG TABLET PO SCH (09:18)
[2022-10-05 09:19] LABS: ABNORMAL LYMPHS % (MANUAL) 0 %; BAND NEUTROPHILS % (MANUAL) 0 %
[2022-10-05] MEDS: TAMSULOSIN 0.4 MG CAPSULE PO SCH (09:19)
[2022-10-05] MEDS: dexAMETHasone 4 MG TABLET PO SCH (09:19)
[2022-10-05] MEDS: CYANOCOBALAMIN 500 MCG TABLET PO SCH (09:19)
[2022-10-05] MEDS: guaiFENesin 600 MG TABLET PO SCH ×2 (09:20→21:34)
[2022-10-05] MEDS: CHOLECALCIFEROL 25 MCG TABLET PO SCH (09:20)
[2022-10-05] MEDS: ACETAMINOPHEN 325 MG TABLET PO PRN (09:20)
[2022-10-05 09:26] LABS: DIFFERENTIAL COMMENT MANUAL DIFFERENTIAL; EOSINOPHILS # (MANUAL) 0.3 10^3/uL (0-0.7); LYMPHOCYTES # (MANUAL) 2.4 10^3/uL (1.5-3.5); LYMPHOCYTES % (MANUAL) 16 %; METAMYELOCYTES % (MANUAL) 3 %; MONOCYTES # (MANUAL) 0.9 10^3/uL (0.0-1.0); MYELOCYTES % (MANUAL) 1 %; NEUTROPHILS # (MANUAL) 10.7 10^3/uL (1.5-6.6); PLASMA CELLS % (MANUAL) 2 %
[2022-10-05 09:29] LABS: PLATELET ESTIMATE, MANUAL NORMAL (130-450,000) (NORMAL); PLATELET MORPHOLOGY NORMAL APPEARANCE (NORMAL); WBC MORPHOLOGY (MULTIPLE) NORMAL APPEARANCE (NORMAL)
[2022-10-05] MEDS: LIDOCAINE PATCH 5% TOP PRN (11:47)
--- NOTE | 2022-10-05 16:03 | PROVIDER PROGRESS NOTE ---
Progress Note October 05, 2022 3:56 PM The patient is not in a good mood today. He just wants to go home. is in the room, son is in the room, and [id number]. They are all discussing the safety of dad going home. Even though he wants to just go home, son and [id number] do not think is a good idea. They think that mom would not be able to take care of him because he is so weak, disabled. It became quite contentious and tense conversation. I was not in the room and the son just updated me. Temperature is 36.5. Heart rate 69. Blood pressure 103/71 5 foot, 10 inches tall, 90.5 kg He really does look more comfortable over the last couple of days. He is able to sit up in a chair and not be panting or grunting with exertion or pain. When he gets angry and has full speech, he is able to recover from his tachypnea within a minute. Next neck has shotty adenopathy next lungs have coarse upper airway sounds. Right lung has a rub, left lung does not. Unless he is angry and speed talking, there is no tachypnea at rest. Regular rate and rhythm. Telemetry shows sinus rhythm with a bundle branch block. Abdomen is obese, soft, nontender. Last bowel movement was yesterday. Extremities have mild edema around the ankles. The ecchymosis that are very dense on his triceps, bottom of forearms are still purple but fading. The ec chymoses on the tops of his arms over the biceps, anterior forearms are much less dense and fading. The ecchymosis in his anterior chest wall and over his breast is also fading. He is not nearly as painful there as he was 2 days ago. Neurologically he is forgetful. He knows where he is, he knows what day it is. But he forgets conversations that we have had. He has to be reminded. He has no focal deficits and he struggles to sit up, walk to the bathroom but he has the most energy he has had in a while. When he was working with physical therapy yesterday he, he was able to complete transitioning positions. He needs frequent lengthy rest breaks but he is able to maintain his O2 sats at 98%. They really do feel he currently needs correction facility for rehab, but they feel he is making incremental improvement to progress to home health PT at discharge. The patient is adamant he is not going to a [facility]. So the conversation with the family is trying to decide that today. Sodium 134, potassium 3.6, BUN 26, creatinine 1. Glucose today has been 125, 123, 150 White cell count 15.3 and is, up, hemoglobin 8.3, MCV 105 Platelets 231 Assessment/plan 1. Hematoma of breast, chest wall, and upper abdominal wall were causing tremendous musculoskeletal pain over the last week. That is much improved over the last couple of days. I took away Lovenox and Motrin and substituted tramadol and pain is being controlled. 2. NSTEMI on admission. Previous echo had an ejection fraction of 25% in 2016. With his current [place] echo showed global wall motion reduction with ejection fraction at 40% visually so better than previous echo. He is completed Lovenox. Currently on aspirin, Plavix, statin. He has dyspnea on exertion but I think it is deconditioning and not somewhat CHF. KATIA inhibitor added October 04. He is moderately to severely deconditioned. That is slowly improving. We will see what family decides about his discharge disposition. I would like to of di sumarge him on no oxygen. But he still hypoxemic requiring 2 L at times. 3. Orthostatic hypotension has been a problem. We have holding parameters on his Lasix spironolactone and Coreg. He has AILYN stockings. He is also on midodrine. KATIA inhibitor added October 04 and blood pressure has been a little low today with that. His blood pressure been up to 136/81 yesterday, today it is 97/60, 103/71. I had started on lisinopril 5 mg daily. I will decrease it to 2.5 mg daily. Resolved/chronic medical problems Acute respiratory failure with hypoxia from heart failure, COVID-pneumonia, COPD. He is still needing 2 L nasal cannula and has been stable. Occasionally he will go to 94% with room air. He will be sent home with oxygen if needed. COVID-19 pneumonia. Completed remdesivir and Decadron. Decadron will be completed as of today. Pleuritic chest pain due to hematoma. Pain now controlled with Toradol Insomnia continues in his chronic Heartburn resolved Unspecified protein calorie malnutrition due to lack of nutritional intake. He is on Ensure Type 2 diabetes mellitus, controlled on metformin and sliding scale lispro Chronic systolic heart failure, appears euvolemic and on appropriate medicines with KATIA inhibitor added yesterday and will be reduced today Fall at home. Family is not happy about him coming home because they feel that he is too much care. They will let us know if they have convinced him to go to SNF Lactic acidosis on admission, resolved. May been from infection, but this patient is also on metformin.
[2022-10-05] MEDS: ZOLPIDEM 5 MG TABLET PO PRN (21:34)
[2022-10-05] MEDS: ATORVASTATIN 40 MG TABLET PO SCH (21:35)
[2022-10-06] MEDS: SODIUM CHLORIDE FLUSH 0.9% 10 ML SYRINGE IVP SCH ×3 (00:20→17:11)
[2022-10-06] MEDS: PANTOPRAZOLE 40 MG TABLET PO SCH (06:45)
[2022-10-06 08:54] LABS: CALCIUM 8.6 mg/dL (8.5-10.3); CREATININE 0.9 mg/dL (0.6-1.2); POTASSIUM 3.6 mmol/L (3.5-5.0)
[2022-10-06 08:59] LABS: BASOPHILS % (AUTO) 0.2 %; EOSINOPHILS % (AUTO) 1.3 %; HCT - HEMATOCRIT 25.6 % (42.0-52.0); LYMPHOCYTES % (AUTO) 17.9 %; MEAN CORPUSCULAR HEMOGLOBIN 33.3 pg (27.0-31.0); MEAN CORPUSCULAR HGB CONC 31.3 g/dL (32.0-36.0); MEAN CORPUSCULAR VOLUME 106.7 fL (80.0-94.0); MEAN PLATELET VOLUME 10.3 fL (7.4-11.4); MONOCYTES % (AUTO) 10.1 %; NEUTROPHILS % (AUTO) 66.2 %; PLT - PLATELET COUNT 225 10^3/uL (130-450); RED CELL DISTRIBUTION WIDTH 14.4 % (12.0-15.0)
[2022-10-06] MEDS ORDERED: lisinopriL 5 MG TABLET PO SCH (09:00)
[2022-10-06] MEDS: INSULIN LISPRO 300 UNIT/3 ML PEN SUBQ SCH ×4 (09:22→21:37)
[2022-10-06] MEDS: ASPIRIN EC 81 MG TABLET PO SCH (09:25)
[2022-10-06] MEDS: dexAMETHasone 4 MG TABLET PO SCH (09:25)
[2022-10-06] MEDS: CHOLECALCIFEROL 25 MCG TABLET PO SCH (09:26)
[2022-10-06] MEDS: SERTRALINE 50 MG TABLET PO SCH (09:26)
[2022-10-06] MEDS: metFORMIN 500 MG TABLET PO SCH ×2 (09:26→17:09)
[2022-10-06] MEDS: CYANOCOBALAMIN 500 MCG TABLET PO SCH (09:26)
[2022-10-06] MEDS: CLOPIDOGREL 75 MG TABLET PO SCH (09:26)
[2022-10-06] MEDS: DOCUSATE SODIUM 250 MG CAPSULE PO SCH (09:26)
[2022-10-06] MEDS: guaiFENesin 600 MG TABLET PO SCH ×2 (09:26→21:37)
[2022-10-06] MEDS: MIDODRINE 2.5 MG TABLET PO SCH ×3 (09:26→17:09)
[2022-10-06] MEDS: FUROSEMIDE 20 MG TABLET PO SCH (09:27)
[2022-10-06] MEDS: carvediloL 3.125 MG TABLET PO SCH ×2 (09:27→21:37)
[2022-10-06] MEDS: TAMSULOSIN 0.4 MG CAPSULE PO SCH (09:27)
[2022-10-06] MEDS: polyethylene glycoL 3350 17 GM PACKET PO SCH (09:28)
[2022-10-06] MEDS: SPIRONOLACTONE 25 MG TABLET PO SCH (09:28)
[2022-10-06 09:32] LABS: SLIDE REVIEW? Indicated
[2022-10-06 09:33] LABS: ABNORMAL LYMPHS % (MANUAL) 0 %
[2022-10-06 09:37] LABS: BAND NEUTROPHILS % (MANUAL) 3 %; EOSINOPHILS # (MANUAL) 0.1 10^3/uL (0-0.7); LYMPHOCYTES # (MANUAL) 1.8 10^3/uL (1.5-3.5); LYMPHOCYTES % (MANUAL) 15 %; METAMYELOCYTES % (MANUAL) 1 %; MONOCYTES # (MANUAL) 1.2 10^3/uL (0.0-1.0); MYELOCYTES % (MANUAL) 2 %; NEUTROPHILS # (MANUAL) 8.5 10^3/uL (1.5-6.6); NUCLEATED RBC (MANUAL) 2 %
[2022-10-06 09:38] LABS: DIFFERENTIAL COMMENT MANUAL DIFFERENTIAL
[2022-10-06 09:40] LABS: WBC MORPHOLOGY (MULTIPLE) 1+ VACUOLA (NORMAL)
[2022-10-06 09:41] LABS: PLATELET ESTIMATE, MANUAL NORMAL (130-450,000) (NORMAL); PLATELET MORPHOLOGY NORMAL APP (NORMAL)
[2022-10-06] MEDS: CALCIUM CARBONATE CHEW 500 MG TABLET PO PRN (11:50)
--- NOTE | 2022-10-06 12:42 | PROVIDER PROGRESS NOTE ---
Progress Note October 06, 2022 12:14 PM is at bedside. 30-minute conversation about future plans. Over the last 2 to 3 days he has improved incrementally with regards to mobility, pain reduction, and appetite. He is not the best he could be but at least he is eating somewhat when he had not been eating any at all. And the grunting respiration he had because of chest wall pain and abdominal wall pain from hematoma is also controlled. Son was here yesterday, wanted to have a conversation with mom and dad about his long-term care. Son was beatriz with mom and said that he really feels that she cannot take care of dad anymore with his higher level of need. If he was ambulatory and able to get himself to the bathroom, get himself to a done room table, or even get himself to a shower it would be different. But right now he is completely dependent for activities of daily living and he is pretty firm that he wants dad to consider living in an assisted living facility on the [facility] in the near future. and patient understand all of this. But there is a lot to think about. The patient himself says that he had a hard time ever since he had a stroke 4 years ago. He slowed down quite a bit since then but he was able to at least do his activities of daily living until now. There is still a coming to the realization that they may have to just sell their house, move to the [facility]. It is one thing to think about it and another to then make it happen. Right now they are temporizing. They would like to go to [facility] for him. After the rehab to get him to the point that he is able to ambulate on his own, she would prefer to take him home. Realizes that she is probably "kicking the can down the road" but will also look at an assisted living facility at the same time. Todays complaints center around the chest wall and abdominal wall pain. Better but still there. He laments that he just cannot think quickly and cannot process all the information going on around him. Still has baseline dyspnea on exertion. Baseline diffuse arthralgias that slow him down. Exam: Temperature 36.4. Heart rate 66. Orthostatic again at 93/51. And 85/57. Respirations 20. 99% on 2 L. 5 foot 10 inches tall, 90.5 kg Elderly gentleman, sitting up in chair, watching both and I. He is listening but saying "I am getting frustrated because I cannot follow you so quickly". Neck is supple Coarse upper airway sounds. Throughout my exams this last week he had occasional wheezing, occasional rhonchi, grunting respiration. Right now he is a little tachypneic as he gets excited about all of this conversation. But the grunting is not present. He is quiet lung sounds, and prolonged and exhalation phase but no wheezing. The hematoma that was present over his entire anterior chest wall, sternum, and epigastric region is purple, starting to change colors as it resolves. Regular rate and rhythm Abdomen protuberant, obese, soft, nontender with normal bowel sounds. Bowel movement was October 04. He is incontinent of urine and is wearing a brief or pad. Extremities have trace pitting edema Neurologically he is alert, oriented to person and place but not completely sure on the date. He knows it is October and is 2022 but he is lost track of days. He is very hard of hearing. Cognitive delay in processing information we will leave him very frustrated and irritated. I really try make sure I slow things down and give him time between sentences. Slow to move. Physical therapy said he was improving on Friday, October 04. We do not have PT on Saturdays or Sundays. Labs: White cell count chronically elevated. Today is 12.0. Hemoglobin 8.0. Hematocrit 25.6. MCV 106. Platelets 225. He has metamyelocytes, myelocytes. B12 is 282. Folate is 15.58. Sodium 134, potassium 3.6, BUN 23, creatinine 0.9. Fasting glucose 116. Hilario cium 8.6. Assessment/plan: 1. Chest wall pain from hematoma of breast, sternum, upper abdominal wall. I think these were all from coughing and anticoagulation for his NSTEMI. He was on Lovenox, Motrin, aspirin, and Plavix. The hematoma on exam is starting to resolve. Since October 03, pain is now much better controlled with tramadol. This in turn has allowed him to breathe better, and mobilize more. His lack of mobility was a barrier to discharge. I could not tell if this was related to his heart or lungs or just musculoskeletal pain. 2. Orthostatic hypotension. We have holding parameters for Lasix 20 mg daily, spironolactone 25 mg daily, and coreg 6.125 mg twice daily. He has AILYN stockings. On midodrine. He had turned the corner and blood pressure was better. He is on Entresto at home. We do not have that on formulary. I added KATIA inhibitor on October 04 for his systolic heart failure. At that time blood pressure was in the 130s. Blood pressure has dropped with that. I noticed he was 103 and 100 systolic yesterday. I had started him on 5 mg and he received only 1 dose. I decreased it to 2.5 mg today. And he is orthostatic again. Plan: Stop KATIA inhibitor for now. Maybe he will be able to add that in the outpatient setting. I certainly do not think is good to be able to tolerate the Entresto. 3. Generalized weakness and deconditioning from acute care stay and illness. Discharged to [facility]. Resolved/chronic medical problems Acute respiratory failure with hypoxia from heart failure, COVID pneumonia, COPD NSTEMI COVID-19 pneumonia Pleuritic chest pain Insomnia Heartburn Protein calorie malnutrition Type 2 diabetes mellitus, controlled on metformin and sliding scale lispro Chronic systolic heart failure Fall at home Lactic acidosis
[2022-10-06] MEDS ORDERED: LEVALBUTEROL 1.25 MG/3 ML NEB INH PRN (14:57)
[2022-10-06] MEDS: IPRATROPIUM/ALBUTEROL 3 ML NEB INH PRN (15:11)
[2022-10-06] MEDS: oxyCODONE 5 MG TABLET PO PRN ×2 (17:11→21:36)
[2022-10-06] MEDS ORDERED: ROCURONIUM 50 MG/5 ML VIAL ONE (18:55)
[2022-10-06] MEDS ORDERED: KETOROLAC 30 MG/ML VIAL ONE (18:55)
[2022-10-06] MEDS ORDERED: PROPOFOL 200 MG/20 ML VIAL IVP ONE (18:55)
[2022-10-06] MEDS ORDERED: fentaNYL 100 MCG/2 ML VIAL ONE (18:55)
[2022-10-06] MEDS ORDERED: DEXAMETHASONE 4 MG/ML VIAL ONE (18:55)
[2022-10-06] MEDS ORDERED: ONDANSETRON 4 MG/2 ML VIAL ONE (18:55)
[2022-10-06] MEDS ORDERED: MIDAZOLAM 2 MG/2 ML VIAL ONE (18:55)
[2022-10-06] MEDS: ATORVASTATIN 40 MG TABLET PO SCH (21:37)
[2022-10-06] MEDS: ZOLPIDEM 5 MG TABLET PO PRN (21:46)
[2022-10-07 05:53] LABS: BASOPHILS % (AUTO) 0.1 %; EOSINOPHILS # (AUTO) 0.2 10^3/uL (0.0-0.7); EOSINOPHILS % (AUTO) 2.3 %; HCT - HEMATOCRIT 24.5 % (42.0-52.0); HGB - HEMOGLOBIN 7.8 g/dL (14.0-18.0); LYMPHOCYTES % (AUTO) 21.7 %; MEAN CORPUSCULAR HEMOGLOBIN 33.3 pg (27.0-31.0); MEAN CORPUSCULAR HGB CONC 31.8 g/dL (32.0-36.0); MEAN CORPUSCULAR VOLUME 104.7 fL (80.0-94.0); MEAN PLATELET VOLUME 10.1 fL (7.4-11.4); MONOCYTES % (AUTO) 10.9 %; NEUTROPHILS # (AUTO) 5.5 10^3/uL (1.5-6.6); NRBC ABSOLUTE COUNT (AUTO) 0.04 x10^3/uL; NUCLEATED RED BLOOD CELLS AUTO 0.4 /100WBC; PLT - PLATELET COUNT 191 10^3/uL (130-450); RED BLOOD COUNT 2.34 10^6/uL (4.70-6.10); WHITE BLOOD COUNT 9.1 x10^3/uL (4.8-10.8)
[2022-10-07 06:02] LABS: CALCIUM 8.3 mg/dL (8.5-10.3); POTASSIUM 3.5 mmol/L (3.5-5.0)
[2022-10-07] MEDS: PANTOPRAZOLE 40 MG TABLET PO SCH (07:03)
[2022-10-07] MEDS: oxyCODONE 5 MG TABLET PO PRN ×3 (07:04→20:05)
[2022-10-07] MEDS: ACETAMINOPHEN 325 MG TABLET PO PRN ×2 (07:27→20:05)
[2022-10-07] MEDS: CHOLECALCIFEROL 25 MCG TABLET PO SCH (09:08)
[2022-10-07] MEDS: dexAMETHasone 4 MG TABLET PO SCH (09:08)
[2022-10-07] MEDS: SPIRONOLACTONE 25 MG TABLET PO SCH (09:13)
[2022-10-07] MEDS: carvediloL 3.125 MG TABLET PO SCH ×2 (09:13→20:05)
[2022-10-07] MEDS: MIDODRINE 2.5 MG TABLET PO SCH (09:13)
[2022-10-07] MEDS: TAMSULOSIN 0.4 MG CAPSULE PO SCH (09:13)
[2022-10-07] MEDS: DOCUSATE SODIUM 250 MG CAPSULE PO SCH (09:14)
[2022-10-07] MEDS: CLOPIDOGREL 75 MG TABLET PO SCH (09:15)
[2022-10-07] MEDS: SERTRALINE 50 MG TABLET PO SCH (09:16)
[2022-10-07] MEDS: CALCIUM CARBONATE CHEW 500 MG TABLET PO PRN ×2 (09:16→15:42)
[2022-10-07] MEDS: FUROSEMIDE 20 MG TABLET PO SCH (09:16)
[2022-10-07] MEDS: guaiFENesin 600 MG TABLET PO SCH ×2 (09:16→20:06)
[2022-10-07] MEDS: SENNA 8.6 MG TABLET PO PRN (09:16)
[2022-10-07] MEDS: ASPIRIN EC 81 MG TABLET PO SCH (09:18)
[2022-10-07] MEDS: CYANOCOBALAMIN 500 MCG TABLET PO SCH (09:19)
[2022-10-07] MEDS: SODIUM CHLORIDE FLUSH 0.9% 10 ML SYRINGE IVP SCH ×3 (09:19→17:29)
[2022-10-07] MEDS: polyethylene glycoL 3350 17 GM PACKET PO SCH (09:20)
[2022-10-07] MEDS: INSULIN LISPRO 300 UNIT/3 ML PEN SUBQ SCH ×4 (09:23→20:40)
[2022-10-07 09:31] LABS: ABG PCO2 40 mmHg (34-45); ABG PH 7.48 (7.35-7.45); ABG PO2 69 mmHg (80-100)
[2022-10-07 09:32] LABS: ABG HCO3 29.8 mmol/L (22.0-26.0); ABG OXYGEN SATURATION 95 % (94-98); ALLEN TEST POSITIVE
[2022-10-07] MEDS: metFORMIN 500 MG TABLET PO SCH ×2 (10:35→17:26)
--- NOTE | 2022-10-07 11:54 | PROVIDER PROGRESS NOTE ---
Progress Note October 07, 2022 11:40 AM Complaints of fatigue again this morning. Orthostatic with standing this morning. Supine systolic was 111, sitting systolic was 112, standing systolic of 78. He is irritable. "I was having a good morning until all of you people started poking and prodding at me". He hates that we make him get out of bed and sit up in a chair. But no severe new chest pain. Shortness of breath and easy fatigability is the same as always. For the last couple of days he is actually increased his dietary intake. He went from eating 0% to eating 25 or 75% of his food. Active Medications Acetaminophen (Acetaminophen 325 Mg Tablet) 650 mg PO Q4HR PRN PRN Reason: Pain 1 to 4, or Fever Last Admin: 10/07/22 07:27 Dose: 650 mg Al Hydroxide/Mg Hydroxide (Mag Hydrox/Al Hydrox/Simeth 30 Ml Udc) 30 ml PO Q4HR PRN PRN Reason: INDIGESTION Albuterol/Ipratropium (Ipratropium/Albuterol 3 Ml Neb) 3 ml INH Q4HR PRN PRN Reason: Wheezing Last Admin: 10/06/22 15:11 Dose: 3 ml Aspirin (Aspirin Ec 81 Mg Tablet) 81 mg PO DAILY [facility] Last Admin: 10/07/22 09:18 Dose: 81 mg Atorvastatin Calcium (Atorvastatin 40 Mg Tablet) 40 mg PO QPM [facility] Last Admin: 10/06/22 21:37 Dose: 40 mg Calcium Carbonate/Glycine (Calcium Carbonate Chew 500 Mg Tablet) 500 mg PO TID PRN PRN Reason: Heartburn Last Admin: 10/07/22 15:42 Dose: 500 mg Carvedilol (Carvedilol 3.125 Mg Tablet) 6.25 mg PO BID [facility] Last Admin: 10/07/22 09:13 Dose: Not Given Cholecalciferol (Cholecalciferol 25 Mcg Tablet) 50 mcg PO DAILY [facility] Last Admin: 10/07/22 09:08 Dose: 50 mcg Clopidogrel Bisulfate (Clopidogrel 75 Mg Tablet) 75 mg PO DAILY [facility] Last Admin: 10/07/22 09:15 Dose: 75 mg Cyanocobalamin (Cyanocobalamin 500 Mcg Tablet) 500 mcg PO DAILY [facility] Last Admin: 10/07/22 09:19 Dose: 500 mcg Docusate Sodium (Docusate Sodium 250 Mg Capsule) 250 - 500 mg PO DAILY [facility] Last Admin: 10/07/22 09:14 Dose: 250 mg Furosemide (Furosemide 20 Mg Tablet) 20 mg PO DAILY [facility] Last Admin: 10/07/22 09:16 Dose: 20 mg Guaifenesin (Guaifenesin 600 Mg Tablet) 600 mg PO BID [facility] Last Admin: 10/07/22 09:16 Dose: 600 mg Insulin Human Lispro (Insulin Lispro 300 Unit/3 Ml Pen) 1 - 5 unit SUBQ 0800,1200,1700,2100 [facility]; Protocol Last Admin: 10/07/22 12:01 Dose: Not Given Levalbuterol HCl (Levalbuterol 1.25 Mg/3 Ml Neb) 1.25 mg INH Q4H PRN PRN Reason: Shortness of Air/Wheezing Lidocaine (Lidocaine Patch 5%) 1 patch TOP DAILY PRN PRN Reason: PAIN Last Admin: 10/05/22 11:47 Dose: 1 patch Metformin HCl (Metformin 500 Mg Tablet) 500 mg PO BIDWM [facility] Last Admin: 10/07/22 10:35 Dose: 500 mg Midodrine (Midodrine 10 Mg Tablet) 10 mg PO TIDWM [facility] Ondansetron HCl (Ondansetron 4 Mg/2 Ml Vial) 4 mg IVP Q6HR PRN PRN Reason: Nausea / Vomiting Oxycodone HCl (Oxycodone 5 Mg Tablet) 5 mg PO Q4HR PRN PRN Reason: PAIN Last Admin: 10/07/22 15:46 Dose: 5 mg Pantoprazole Sodium (Pantoprazole 40 Mg Tablet) 40 mg PO QDAC [facility] Last Admin: 10/07/22 07:03 Dose: 40 mg Polyethylene Glycol (Polyethylene Glycol 3350 17 Gm Packet) 17 gm PO DAILY [facility] Last Admin: 10/07/22 09:20 Dose: Not Given Senna (Senna 8.6 Mg Tablet) 8.6 - 17.2 mg PO DAILY PRN PRN Reason: Constipation Last Admin: 10/07/22 09:16 Dose: 8.6 mg Sertraline HCl (Sertraline 50 Mg Tablet) 50 mg PO DAILY [facility] Last Admin: 10/07/22 09:16 Dose: 50 mg Sodium Chloride (Sodium Chloride Flush 0.9% 10 Ml Syringe) 10 ml IVP PRN PRN PRN Reason: NEEDED PER PROVIDER ORDERS Sodium Chloride (Sodium Chloride Flush 0.9% 10 Ml Syringe) 10 ml IVP 0100,0900,1700 [facility] Last Admin: 10/07/22 09:19 Dose: 10 ml Spironolactone (Spironolactone 25 Mg Tablet) 25 mg PO DAILY [facility] Last Admin: 10/07/22 09:13 Dose: 25 mg Tamsulosin HCl (Tamsulosin 0.4 Mg Capsule) 0.4 mg PO DAILY [facility] Last Admin: 10/07/22 09:13 Dose: 0.4 mg Tramadol HCl (Tramadol 50 Mg Tablet) 50 mg PO Q4HR PRN PRN Reason: PAIN Last Admin: 10/05/22 21:35 Dose: 50 mg Zolpidem Tartrate (Zolpidem 5 Mg Tablet) 5 mg PO QPM PRN PRN Reason: Insomnia Last Admin: 10/06/22 21:46 Dose: 5 mg Home Meds: metFORMIN [Glucophage] 1,000 mg ORAL BID 12/31/15 Atorvastatin Calcium 40 mg PO QPM 05/26/16 Acetaminophen [Aphen] 650 mg PO QID PRN 09/27/22 Aspirin [Aspirin EC] 81 mg PO DAILY 09/27/22 Carvedilol [Coreg] 6.25 mg PO BID 09/27/22 Cholecalciferol [Vitamin D3] 50 mcg PO DAILY 09/27/22 Clopidogrel [Plavix] 75 mg PO DAILY 09/27/22 Furosemide [Lasix] 20 mg PO DAILY 09/27/22 Sacubitril/Valsartan [Entresto 24 mg-26 mg Tablet] 1 each PO BID 09/27/22 Sertraline [Zoloft] 50 mg PO DAILY 09/27/22 Spironolactone [Aldactone] 25 mg PO DAILY 09/27/22 Tamsulosin [Flomax] 1 cap PO DAILY 09/27/22 Exam: Temperature 37.3, heart rate 75, blood pressure 109/64. Orthostatic blood pressure check as above. He needs 1 and sometimes 2 L of oxygen to maintain O2 sats at 93%. 5 foot 10 inches tall, 90.5 kg., 95.6 kg on admission. 93.4 kg on October 02. Elderly gentleman, sitting up in the chair, but so exhausted that he is drifting off in midsentence, closing his eyes and putting his head back in the chair. Neck is supple Lungs have coarse upper airway sounds. The occasional gurgling rhonchi, grunting respiration, and intermittent wheezing has not been present for 3 days. Prolonged and exhalation but no outright wheezing. Hematoma that was present over his entire chest wall is started to change colors as it is resolving. Regular rate and rhythm with a systolic murmur Abdomen is protuberant, nontender, normal bowel sounds. Incontinent of urine and wearing briefs. Last bowel movement was October 04. Neurologically he has cognitive slowing and cognitive deficits we cannot process information quickly or well. says this been present since the stroke and worse with this admission because of illness. He is alert and oriented to person place and time and is able to communicate effectively. Quite a coverage in. He is forgetful. Can get angry and anxious. Slow to move but no focal deficits. Lab: Sodium 138, potassium 3.5, BUN 18, creatinine 1.0, fasting glucose 98 White cell count 9.1. Hemoglobin 7.8. Hematocrit 24.5. Platelets 191. Assessment/plan: 1. Orthostatic hypotension again. We have holding parameters for Lasix, spironolactone, Coreg, and he is on Vijay hose. He is on midodrine 5 mg p.o. 3 times daily. He had actually been doing quite well. I added KATIA inhibitor on October 04 for his history of congestive heart failure and because he was Entresto at home and he did not have it here. But that seemed to bottom out his blood pressure and I stopped the KATIA inhibitor October 06. Plan: Increase to midodrine 10 mg p.o. 3 times daily Still have physical therapy work with him if they can. Even if it is only to do chair exercises. He is [facility]. 2. Chest wall pain from hematoma of breast, sternum, upper abdominal wall. I think this was from coughing and the anticoagulation for his NSTEMI where he was on Lovenox, Motrin, aspirin, and Plavix. His weight was accident recorded 193 kg 1 day and he received Lovenox for that weight. On 1 day alone, I observed large hematomas/ecchymoses spontaneously form over his triceps and forearms. On ce I was able to get his pain controlled from the chest wall pain, he seemed to be breathing better and mobilizing more. 2 days ago he asked for oxycodone back again after had been trying tramadol. is concerned about this because oxycodone constipates him. I think this patient really does not care one way or the other and will go back to tramadol. 3. Acute respiratory failure with hypoxia from heart failure, COVID, and COPD. He is gone up and down with his oxygen this last week. At times he is actually on room air. Then he goes back up on needing oxygen. His echo shows moderate global hypokinesis with an ejection fraction of 40%, and valves were not visualized. Right ventricle was not visualized. He had basal to mid inferior wall and basal to mid inferolateral wall segments that was thinned and akinetic. He had basal to mid anterolateral wall that was severely hypokinetic to akinetic. He teeters between almost being ready to go to a shelter facility for rehab to worsening of chronic problems such as hypoxia, and orthostatic hypotension. 4. Chronic systolic heart failure. From objective data, weight is down. His intake and output is not well recorded but from what I can evaluate, he is not overloaded from fluid intake since his insensate losses would balance the slight 700 cc here or there he is postiive. He has not been on maintenance IV fluids since October 01. Right now all of his intake is po and IV flushes. He is on Coreg 6.25 p.o. twice daily. Minimal dose of Lasix 20 p.o. daily. Small dose of Aldactone at 25 p.o. daily. Unable to tolerate even 2.5 mg of enalapril a day. Plan: Check BNP tomorrow Check chest x-ray to see if there is fluid overload Resolved/chronic medical problems NSTEMI. [facility] Discharge planning a follow- up on that and see what the hold-up is been about. We have asked the [facility] twice now for records. COVID-19 pneumonia, time to stop decadron Pleuritic chest pain Insomnia Heartburn Protein calorie malnutrition Type 2 diabetes mellitus, controlled on metformin and sliding scale lispro
[2022-10-07] MEDS: MAG HYDROX/AL HYDROX/SIMETH 30 ML UDC PO PRN ×2 (16:35→20:43)
[2022-10-07] MEDS: MIDODRINE 10 MG TABLET PO SCH (17:26)
--- NOTE | 2022-10-07 19:09 | XRAY Report ---
PROCEDURE: Chest 1 View X-Ray INDICATIONS: sob and hx of chf and back to being hypoxic TECHNIQUE: One view of the chest was acquired. COMPARISON: None. FINDINGS: Surgical changes and devices: None. Lungs and pleura: Elevated right hemidiaphragm. There is blunting the right costophrenic angle. Left lung and both pleural spaces clear Mediastinum: Mediastinal contours appear normal. Heart size is normal. Bones and chest wall: No suspicious bony lesions. Overlying soft tissues appear unremarkable. IMPRESSION: Stable elevated right hemidiaphragm Reviewed by: Renato Decker MD on 10/07/2022 6:08 PM [facility] Approved by: Renato Decker MD on 10/07/2022 6:08 PM [facility] Station ID: [id number]
[2022-10-07] MEDS: ATORVASTATIN 40 MG TABLET PO SCH (20:05)
[2022-10-07] MEDS: ZOLPIDEM 5 MG TABLET PO PRN (20:45)
[2022-10-08] MEDS: SODIUM CHLORIDE FLUSH 0.9% 10 ML SYRINGE IVP SCH ×4 (06:34→23:50)
[2022-10-08] MEDS: oxyCODONE 5 MG TABLET PO PRN ×2 (06:34→13:51)
[2022-10-08] MEDS: PANTOPRAZOLE 40 MG TABLET PO SCH (06:38)
[2022-10-08] MEDS: TAMSULOSIN 0.4 MG CAPSULE PO SCH (09:20)
[2022-10-08] MEDS: SERTRALINE 50 MG TABLET PO SCH (09:20)
[2022-10-08] MEDS: CLOPIDOGREL 75 MG TABLET PO SCH (09:20)
[2022-10-08] MEDS: CYANOCOBALAMIN 500 MCG TABLET PO SCH (09:20)
[2022-10-08] MEDS: DOCUSATE SODIUM 250 MG CAPSULE PO SCH (09:20)
[2022-10-08] MEDS: CHOLECALCIFEROL 25 MCG TABLET PO SCH (09:20)
[2022-10-08] MEDS: metFORMIN 500 MG TABLET PO SCH ×2 (09:20→17:23)
[2022-10-08] MEDS: SPIRONOLACTONE 25 MG TABLET PO SCH (09:20)
[2022-10-08] MEDS: ASPIRIN EC 81 MG TABLET PO SCH (09:20)
[2022-10-08] MEDS: guaiFENesin 600 MG TABLET PO SCH ×2 (09:20→21:41)
[2022-10-08] MEDS: MIDODRINE 10 MG TABLET PO SCH ×3 (09:20→17:23)
[2022-10-08] MEDS: FUROSEMIDE 20 MG TABLET PO SCH (09:21)
[2022-10-08] MEDS: carvediloL 3.125 MG TABLET PO SCH ×2 (09:21→21:41)
[2022-10-08] MEDS: polyethylene glycoL 3350 17 GM PACKET PO SCH (09:21)
[2022-10-08] MEDS: INSULIN LISPRO 300 UNIT/3 ML PEN SUBQ SCH ×4 (09:27→21:41)
[2022-10-08 09:29] LABS: CALCIUM 9.2 mg/dL (8.5-10.3); CREATININE 1.1 mg/dL (0.6-1.2); POTASSIUM 4.4 mmol/L (3.5-5.0)
[2022-10-08] MEDS: SENNA 8.6 MG TABLET PO PRN (10:08)
[2022-10-08] MEDS ORDERED: GLYCERIN ADULT SUPP PR ONE (13:37)
[2022-10-08 16:16] LABS: PATHOLOGIST SLIDE COMMENTS SEE SEPARATE REPORT
--- NOTE | 2022-10-08 19:07 | PROVIDER PROGRESS NOTE ---
Assessment/Plan - Problem List (1) Orthostatic hypotension Assessment/Plan: We have holding parameters for Lasix, spironolactone, Coreg, and he is on Vijay hose. He was on midodrine 5 mg p.o. 3 times daily. He had actually been doing quite well. We then added KATIA inhibitor on October 04 for his congestive, systolic heart failure and because he was Entresto at home and he did not have it here. But that seemed to bottom out his blood pressure and I stopped the KATIA inhibitor October 06. Yesterday we increase his midodrine from 5 TID to 10 mg p.o.TID Plan: He was still orthostatic today, not yet ready for discharge thgerefore, while we are looking for a place to accept him to a SNF for rehab Will still have physical therapy work with him if they can. Even if it is only to do chair exercises. 2. Hematoma of breast Chest wall pain from this hematoma on his breast, sternum I think this was from coughing and the anticoagulation for his NSTEMI when he was on therapeutic Lovenox, Motrin, aspirin, and Plavix. His weight was accidently recorded as being 193 kg and he received Lovenox for that weight. Then in 1 day alone, the previous Hospitalist observed large hemato mas/ecchymoses spontaneously forming over his triceps and forearms. Once we then got his pain from the chest wall controlled, he seemed to be breathing better and mobilizing more secretions. Plan: Continue pain meds as needed 3. Hematoma of chest wall As in #2 4. Hematoma of abdominal wall. As in #2 5. Acute respiratory failure with hypoxia This is from a combination of heart failure, COVID, and COPD. He has gone up and down with his oxygen needs. At times he is actually on room air. Then he goes back up to needing oxygen. His Echo shows moderate global hypokinesis with an ejection fraction of 40%, and valves were not visualized. Right ventricle was not visualized. He had basal to mid inferior wall and basal to mid inferolateral wall segments that was thinned and akinetic. He had basal to mid anterolateral wall that was severely hypokinetic to akinetic. He teeters kellene jordy almost being ready to go to a retirement facility for rehab to worsening of chronic problems such as hypoxia, and orthostatic hypotension. Plan: Continue treating all his clinic current comorbidities, and his target O2 saturation is 90% or higher 6. Chronic systolic heart failure. He is not overloaded from fluid intake. He has not been on maintenance IV fluids since October 01. Right now all of his intake is po and IV flushes. He is on Coreg 6.25 p.o. twice daily. Minimal dose of Lasix 20 p.o. daily. Small dose of Aldactone at 25 p.o. daily. Unable to tolerate even 2.5 mg of enalapril a day. Plan: Continue with current cardiac meds, holding parameters are in place 7. NSTEMI. He had CP before adm along with SOB and ruled in for an NSTEMI. We never did get any records from the [place]. We have asked the [place] twice now for records. His Echo shows moderate global hypokinesis with an ejection fraction of 40%, and valves were not visualized. Right ventricle was not visualized. He had basal to mid inferior wall and basal to mid inferolateral wall segments that was thinned and akinetic. He had basal to mid anterolateral wall that was severely hypokinetic to akinetic. Plan: Continue with current cardiac meds, holding parameters are in place 8. COVID-19 pneumonia Resolved. He has been off of contact isolation for several days. 9. Pleuritic chest pain Slowly improving 10. Insomnia Somewhat improved with no interruptions for vital signs and with sleeping med given 11. Heartburn He continues to have what he calls heartburn Plan: Continue Tums as needed and daily Protonix oral 12. Unspecified Protein calorie malnutrition His diabetic diet has been changed to regular diet because of his extreme only limited desire to eat 13. Type 2 diabetes mellitus Glu is controlled on metformin and sliding scale lispro 14. Fall at home As per Hx - Current Meds Current Meds: Current Medications Generic Name Dose Route Start Last Admin Trade Name Freq PRN Reason Stop Dose Admin Acetaminophen 650 mg 09/26/22 20:29 10/07/22 20:05 Acetaminophen 325 Mg Tablet PO 650 mg Q4HR PRN Administration Pain 1 to 4, or Fever Al Hydroxide/Mg Hydroxide 30 ml 10/07/22 15:06 10/07/22 20:43 Mag Hydrox/Al Hydrox/Simeth 30 Ml Udc PO 30 ml Q4HR PRN Administration INDIGESTION Albuterol/Ipratropium 3 ml 09/26/22 20:32 10/06/22 15:11 Ipratropium/Albuterol 3 Ml Neb INH 3 ml Q4HR PRN Administration Wheezing Aspirin 81 mg 09/27/22 13:40 10/08/22 09:20 Aspirin Ec 81 Mg Tablet PO 81 mg DAILY CATE Administration Atorvastatin Calcium 40 mg 09/27/22 21:00 10/07/22 20:05 Atorvastatin 40 Mg Tablet PO 40 mg QPM CATE Administration Calcium Carbonate/Glycine 500 mg 09/29/22 07:58 10/07/22 15:42 Calcium Carbonate Chew 500 Mg Tablet PO 500 mg TID PRN Administration Heartburn Carvedilol 6.25 mg 09/29/22 12:50 10/08/22 09:21 Carvedilol 3.125 Mg Tablet PO Not Given BID [facility] Cholecalciferol 50 mcg 10/01/22 09:00 10/08/22 09:20 Cholecalciferol 25 Mcg Tablet PO 50 mcg DAILY CATE Administration Clopidogrel Bisulfate 75 mg 09/28/22 10:00 10/08/22 09:20 Clopidogrel 75 Mg Tablet PO 75 mg DAILY [facility] Administration Cyanocobalamin 500 mcg 09/30/22 17:00 10/08/22 09:20 Cyanocobalamin 500 Mcg Tablet PO 500 mcg DAILY [facility] Administration Docusate Sodium 250 - 500 mg 10/03/22 09:00 10/08/22 09:20 Docusate Sodium 250 Mg Capsule PO 250 mg DAILY [facility] Administration Furosemide 20 mg 09/29/22 12:51 10/08/22 09:21 Furosemide 20 Mg Tablet PO Not Given DAILY [facility] Guaifenesin 600 mg 09/27/22 21:00 10/08/22 09:20 Guaifenesin 600 Mg Tablet PO 600 mg BID CATE Administration Insulin Human Lispro 1 - 5 unit 09/27/22 17:00 10/08/22 17:23 Insulin Lispro 300 Unit/3 Ml Pen SUBQ Not Given 0800,1200,1700,2100 [facility] Protocol Lidocaine 1 patch 09/29/22 19:11 10/05/22 11:47 Lidocaine Patch 5% TOP 1 patch DAILY PRN Administration PAIN Metformin HCl 500 mg 09/30/22 08:00 10/08/22 17:23 Metformin 500 Mg Tablet PO 500 mg BIDWM [facility] Administration Midodrine 10 mg 10/07/22 17:00 10/08/22 17:23 Midodrine 10 Mg Tablet PO 10 mg TIDWM CATE Administration Oxycodone HCl 5 mg 10/06/22 14:58 10/08/22 13:51 Oxycodone 5 Mg Tablet PO 5 mg Q4HR PRN Administration PAIN Pantoprazole Sodium 40 mg 09/30/22 07:00 10/08/22 06:38 Pantoprazole 40 Mg Tablet PO 40 mg QDAC CATE Administration Polyethylene Glycol 17 gm 09/28/22 09:00 10/08/22 09:21 Polyethylene Glycol 3350 17 Gm Packet PO Not Given DAILY CATE Senna 8.6 - 17.2 mg 09/28/22 07:16 10/08/22 10:08 Senna 8.6 Mg Tablet PO 17.2 mg DAILY PRN Administration Constipation Sertraline HCl 50 mg 09/28/22 10:00 10/08/22 09:20 Sertraline 50 Mg Tablet PO 50 mg DAILY CATE Administration Sodium Chloride 10 ml 09/27/22 01:00 10/08/22 17:23 Sodium Chloride Flush 0.9% 10 Ml Syringe IVP 10 ml 0100,0900,1700 CATE Administration Spironolactone 25 mg 09/29/22 12:51 10/08/22 09:20 Spironolactone 25 Mg Tablet PO 25 mg DAILY CATE Administration Tamsulosin HCl 0.4 mg 09/29/22 09:00 10/08/22 09:20 Tamsulosin 0.4 Mg Capsule PO 0.4 mg DAILY CATE Administration Tramadol HCl 50 mg 10/03/22 18:00 10/05/22 21:35 Tramadol 50 Mg Tablet PO 50 mg Q4HR PRN Administration PAIN Zolpidem Tartrate 5 mg 09/30/22 08:33 10/07/22 20:45 Zolpidem 5 Mg Tablet PO 5 mg QPM PRN Administration Insomnia - Lab Result Fish Bone Diagrams: 10/07/22 05:23 10/09/22 07:27 Subjective - Subjective Patient Reports: Resting Comfortably Objective Vital Signs: Vital Signs - 24 hr 10/07/22 10/08/22 10/08/22 20:01 02:01 07:35 Temperature 36.7 C 36.6 C Heart Rate [ 79 71 68 Brachial] Respiratory 20 18 Rate Blood Pressure 118/66 [Right Brachial artery] Blood Pressure 130/76 93/66 [Right Radial artery] O2 Saturation 94 94 10/08/22 16:00 Temperature 36.9 C Heart Rate [ 65 Brachial] Respiratory 16 Rate Blood Pressure [Right Brachial artery] Blood Pressure 99/61 [Right Radial artery] O2 Saturation 96 Oxygen O2 Source Room air I&O (Last 24 Hrs): Intake and Output Totals x24h 10/06/22 10/07/22 10/08/22 23:59 23:59 23:59 Intake Total 870 460 626 Output Total 100 Balance 770 460 626 General: Alert, No acute distress HEENT: Mucous membr. moist/pink Neck: Supple Neuro: Alert, Non Focal Cardiovascular: No murmurs Respiratory: No respiratory distress Abdomen: Soft Extremities: No edema Skin: No rashes (He has massive hematomas of the entire upper chest bilaterally, his left lower chest and left lateral chest, his left arm down to his wrist) - Results Results: Laboratory Results Specimen Type BLOOD 10/05/22 07:56 WBC 9.1 x10^3/uL (4.8-10.8) 10/07/22 05:23 RBC 2.34 10^6/uL (4.70-6.10) L 10/07/22 05:23 Hgb 7.8 g/dL (14.0-18.0) L 10/07/22 05:23 Hct 24.5 % (42.0-52.0) L 10/07/22 05:23 MCV 104.7 fL (80.0-94.0) H 10/07/22 05:23 MCH 33.3 pg (27.0-31.0) H 10/07/22 05:23 MCHC 31.8 g/dL (32.0-36.0) L 10/07/22 05:23 RDW 15.0 % (12.0-15.0) 10/07/22 05:23 Plt Count 191 10^3/uL (130-450) 10/07/22 05:23 MPV 10.1 fL (7.4-11.4) 10/07/22 05:23 Neut # (Auto) 5.5 10^3/uL (1.5-6.6) 10/07/22 05:23 Lymph # (Auto) 2.0 10^3/uL (1.5-3.5) 10/07/22 05:23 [place] # (Auto) 1.0 10^3/uL (0.0-1.0) 10/07/22 05:23 Eos # (Auto) 0.2 10^3/uL (0.0-0.7) 10/07/22 05:23 Baso # (Auto) 0.0 10^3/uL (0.0-0.1) 10/07/22 05:23 Absolute Nucleated RBC 0.04 x10^3/uL 10/07/22 05:23 Total Counted 100 10/06/22 08:36 Band Neuts % (Manual) 3 % (0-10) 10/06/22 08:36 Abnorm Lymph % (Manual) 0 % 10/06/22 08:36 Metamyelocytes % 1 % (-0) H 10/06/22 08:36 Myelocytes % 2 % (-0) H 10/06/22 08:36 Plasma Cell % (Manual) 2 % 10/05/22 07:56 Nucleated RBC % 0.4 /100WBC 10/07/22 05:23 Neutrophils # (Manual) 8.5 10^3/uL (1.5-6.6) H 10/06/22 08:36 Lymphocytes # (Manual) 1.8 10^3/uL (1.5-3.5) 10/06/22 08:36 Monocytes # (Manual) 1.2 10^3/uL (0.0-1.0) H 10/06/22 08:36 Eosinophils # (Manual) 0.1 10^3/uL (0-0.7) 10/06/22 08:36 Basophils # (Manual) 0.0 10^3/uL (0-0.1) 10/06/22 08:36 Nucleated RBCs 2 % 10/06/22 08:36 Differential Comment MANUAL DIFFERENTIAL 10/06/22 08:36 Manual Slide Review Indicated 10/06/22 08:36 Pathologist Review SEE SEPARATE REPORT 10/05/22 07:56 WBC Morphology 1+ VACUOLA (NORMAL) 10/06/22 08:36 Platelet Estimate NORMAL (130-450,000) (NORMAL) 10/06/22 08:36 Platelet Morphology NORMAL DERIAN (NORMAL) 10/06/22 08:36 RBC Morph Micro Appear 2+ ANISOCYTOSIS (NORMAL) 2+ HYPOCHROMASIA (NORMAL) 1+ POLYCHROMASIA (NORMAL) 10/06/22 08:36 RBC Morph Micro Appear 2+ ANISOCYTOSIS (NORMAL) 2+ HYPOCHROMASIA (NORMAL) 1+ POLYCHROMASIA (NORMAL) 10/06/22 08:36 RBC Morph Micro Appear 2+ ANISOCYTOSIS (NORMAL) 2+ HYPOCHROMASIA (NORMAL) 1+ POLYCHROMASIA (NORMAL) 10/06/22 08:36 PT 13.5 secs (9.9-12.6) H 09/27/22 10:52 INR 1.2 (0.8-1.2) 09/27/22 10:52 Bld Gas Analysis Time 0910/07/22 09:18 Sample Site RIGHT RADIAL 10/07/22 09:18 ABG pH 7.48 (7.35-7.45) H 10/07/22 09:18 ABG pCO2 40 mmHg (34-45) 10/07/22 09:18 ABG pO2 69 mmHg (80-100) L 10/07/22 09:18 ABG HCO3 29.8 mmol/L (22.0-26.0) H 10/07/22 09:18 ABG Total CO2 31.0 MMOL/L (21.0-29.0) H 10/07/22 09:18 ABG O2 Saturation 95 % (94-98) 10/07/22 09:18 ABG Base Excess 6.0 mmol/L (-2.0-3.0) H 10/07/22 09:18 Geovanni Test POSITIVE 10/07/22 09:18 VBG pH 7.338 (7.31-7.41) 09/26/22 16:42 VBG pCO2 46.2 mmHg (41-51) 09/26/22 16:42 VBG pO2 20.8 mmHg (25-47) L 09/26/22 16:42 VBG HCO3 24.3 mmol/L (23-28) 09/26/22 16:42 VBG Total CO2 25.7 mmol/L (24-29) 09/26/22 16:42 VBG O2 Saturation 33.5 % (60-80) L 09/26/22 16:42 VBG Base Excess -1.8 mmol/L (-2 - +2) 09/26/22 16:42 Room Air YES 10/07/22 09:18 Sodium 139 mmol/L (135-145) 10/08/22 09:14 Potassium 4.4 mmol/L (3.5-5.0) 10/08/22 09:14 Chloride 97 mmol/L (101-111) L 10/08/22 09:14 Carbon Dioxide 28 mmol/L (21-32) 10/08/22 09:14 Anion Gap 14.0 (6-13) H 10/08/22 09:14 BUN 21 mg/dL (6-20) H 10/08/22 09:14 Creatinine 1.1 mg/dL (0.6-1.2) 10/08/22 09:14 Estimated GFR (MDRD) 64 (>89) L 10/08/22 09:14 Glucose 132 mg/dL (70-100) H 10/08/22 09:14 POC Whole Bld Glucose 134 mg/dL (70 - 100) H 10/08/22 16:17 Estimat Average Glucose 137 mg/dL (70-100) H 09/27/22 10:52 Hemoglobin A1c % 6.4 % (4.27-6.07) H 09/27/22 10:52 Lactic Acid 1.3 mmol/L (0.5-2.2) 09/27/22 10:52 Calcium 9.2 mg/dL (8.5-10.3) 10/08/22 09:14 Magnesium 1.7 mg/dL (1.7-2.8) 09/26/22 16:42 Total Bilirubin 0.7 mg/dL (0.2-1.0) 09/26/22 16:42 AST 37 IU/L (10-42) 09/26/22 16:42 ALT 27 IU/L (10-60) 09/26/22 16:42 Alkaline Phosphatase 43 IU/L (42-121) 09/26/22 16:42 Troponin I High Sens 78.2 ng/L (2.3-19.7) H* 09/28/22 05:25 B-Natriuretic Peptide 291 pg/mL (5-100) H 10/08/22 09:14 Total Protein 7.1 g/dL (6.7-8.2) 09/26/22 16:42 Albumin 3.7 g/dL (3.2-5.5) 09/26/22 16:42 Globulin 3.4 g/dL (2.1-4.2) 09/26/22 16:42 Albumin/Globulin Ratio 1.1 (1.0-2.2) 09/26/22 16:42 Triglycerides 99 mg/dL (-149) 09/29/22 06:12 Cholesterol 72 mg/dL (-199) 09/29/22 06:12 LDL Cholesterol, Calc 28 mg/dL (-129) 09/29/22 06:12 VLDL Cholesterol 20 mg/dL 09/29/22 06:12 HDL Cholesterol 24 mg/dL (60-) L 09/29/22 06:12 LDL/HDL Ratio 1.2 (<3.6) 09/29/22 06:12 Cholesterol/HDL Ratio 3.0 (<5.0) 09/29/22 06:12 Vitamin B12 282 pg/mL (180-914) 09/30/22 07:39 Folate 15.58 ng/mL (5.90 - >24.8) 09/30/22 07:39 Nasal Adenovirus (PCR) NOT DETECTED 09/26/22 16:43 Nasal B. parapertussis DNA (PCR) NOT DETECTED 09/26/22 16:43 Nasal Coronavir 229E PCR NOT DETECTED 09/26/22 16:43 Nasal Coronavir HKU1 PCR NOT DETECTED 09/26/22 16:43 Nasal Coronavir NL63 PCR NOT DETECTED 09/26/22 16:43 Nasal Coronavir OC43 PCR NOT DETECTED 09/26/22 16:43 Nasal Enterovir/Rhinovir PCR NOT DETECTED 09/26/22 16:43 Nasal Influenza B PCR NOT DETECTED 09/26/22 16:43 Nasal Influenza A PCR NOT DETECTED 09/26/22 16:43 Nasal Parainfluen 1 PCR NOT DETECTED 09/26/22 16:43 Nasal Parainfluen 2 PCR NOT DETECTED 09/26/22 16:43 Nasal Parainfluen 3 PCR NOT DETECTED 09/26/22 16:43 Nasal Parainfluen 4 PCR NOT DETECTED 09/26/22 16:43 Nasal RSV (PCR) NOT DETECTED 09/26/22 16:43 Nasal B.pertussis DNA PCR NOT DETECTED 09/26/22 16:43 Nasal C.pneumoniae (PCR) NOT DETECTED 09/26/22 16:43 Leroy Human Metapneumo PCR NOT DETECTED 09/26/22 16:43 Nasal M.pneumoniae (PCR) NOT DETECTED 09/26/22 16:43 Nasal SARS-CoV-2 (PCR) DETECTED A 09/26/22 16:43 - Procedures Procedures: Procedures REPOSITION LEFT UPPER FEMUR WITH INTRAMED FIX, OPEN APPROACH (05/25/16) TRANSFUSE NONAUT FROZEN PLASMA IN PERIPH VEIN, PERC (05/25/16)
[2022-10-08] MEDS: ZOLPIDEM 5 MG TABLET PO PRN (21:41)
[2022-10-08] MEDS: ATORVASTATIN 40 MG TABLET PO SCH (21:41)
[2022-10-08] MEDS: traMADol 50 MG TABLET PO PRN (21:41)
--- NOTE | 2022-10-08 23:57 | CT Report ---
PROCEDURE: HEAD WO INDICATIONS: Head Injury TECHNIQUE: Noncontrast 4.5 mm thick angled axial sections acquired from the foramen magnum to the vertex. For r adiation dose reduction, the following was used: automated exposure control, adjustment of mA and/or kV according to patient size. COMPARISON: CT head 09/26/2022. FINDINGS: Image quality: There is motion artifact limiting evaluation. CSF spaces: There is moderate cerebral volume loss with prominence of the ventricles and sulci. Basa l cisterns are patent. No extra-axial fluid collections. Brain: No intracranial hemorrhage, mass, or mass effect. There are subcortical and periventricular w michelle matter hypodensities consistent with chronic small vessel ischemic changes. There is encephaloma lacia in the right posterior parietal and occipital lobes consistent with sequelae of a prior infarct . Establish also demonstrated within the right posterior parietal and occipital lobes consistent with a prior infarct. Skull and face: Calvarium and visualized facial bones are intact, without suspicio us lesions. Sinuses: Visualized sinuses demonstrate a small air-fluid level in the right maxillary sinus with a possible sinus retention cyst. IMPRESSION: 1. No definite acute intracranial abnormality. 2. 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
--- NOTE | 2022-10-09 00:17 | CT Report ---
PROCEDURE: CERVICAL SPINE WO INDICATIONS: Neck Injury TECHNIQUE: Noncontrast 3 mm thick sections acquired from the skull base to the T4 level. Sagittal and coronal r eformats were then constructed. For radiation dose reduction, the following was used: automated exp osure control, adjustment of mA and/or kV according to patient size. COMPARISON: None. FINDINGS: Image quality: There is slight motion artifact. Bones: No fractures or subluxation. There is multilevel degenerative disc disease and facet joint ar thropathy. Minimal retrolisthesis demonstrated at C4-C5. Visualized superior ribs are intact. Soft tissues: Prevertebral soft tissues are normal in thickness. No paravertebral hematomas. No ap ical pneumothoraces. IMPRESSION: 1. No fracture or subluxation. Reviewed by: Umang Rivas MD on 10/09/2022 12:26 AM [facility] Approved by: Umang Rivas MD on 10/09/2022 12:26 AM [facility] Station ID: [id number]
[2022-10-09] MEDS: PANTOPRAZOLE 40 MG TABLET PO SCH (06:06)
[2022-10-09 07:59] LABS: CALCIUM 8.3 mg/dL (8.5-10.3); POTASSIUM 4.1 mmol/L (3.5-5.0)
[2022-10-09] MEDS: INSULIN LISPRO 300 UNIT/3 ML PEN SUBQ SCH (07:59)
--- NOTE | 2022-10-09 08:29 | PROVIDER PROGRESS NOTE ---
Assessment/Plan - Problem List (1) Orthostatic hypotension Assessment/Plan: The patient is still orthostatic despite being on Midodrine 10 mg 3 times daily with meals (sitting systp;ic BP 123, standing systolic BP 98 today) Plan: He is not yet safe for [facility] today We will stop his daily Lasix We will decrease his Coreg from 6.25 twice daily to 3.125 twice daily, there are already holding parameters ordered Will decrease his daily spironolactone from 25 mg daily to 12.5 mg and give only on Friday. Continue with the Tamsulosin which he needs for prostate trouble, dose will not change Continue with Midodrine which is at maximum dose Continue with AILYN compression stockings on the morning, off at at bedtime (2) Fall during current hospitalization Qualifiers: Encounter type: subsequent encounter Qualified Code(s): W19.XXXD - Unspecified fall, subsequent encounter; Y92.239 - Unspecified place in hospital as the place of occurrence of the external cause Assessment/Plan: Last night at approximately 2300, the patient was sitting at the edge of the bed dangling, there was a bedside table in front of him which he pushed forward and apparently tried to stand on his own. He was found on the ground and had a left elbow and left knee skin tear. I am not sure if a fingerstick glu check was done. He underwent head CT and C-spine CT and both were negative for any trauma or new problems. Plan: Because he is still orthostatic today he is not ready for discharge Continue with neurochecks every 4 hours for the next day. Will cancel sliding scale insulin coverage and POC glucose checks, as he is on a Reg diet. 3. Hematoma of breast He still has chest wall pain from this hematoma on his breast, sternum I think this was from coughing while on the anticoagulation for his NSTEMI when he was on therapeutic Lovenox, Motrin, aspirin, and Plavix. His weight was ac cidently recorded as being 193 kg and he received Lovenox for that weight. Then in 1 day alone, the previous Hospitalist observed large hematomas/ecchymoses spontaneously forming over his triceps and forearms. Once we then got his pain from the chest wall controlled, he seemed to be breathing better and mobilizing more secretions. Plan: Continue pain meds as needed 4. Hematoma of chest wall As in #3 5. Hematoma of abdominal wall. As in #3 6. Acute respiratory failure with hypoxia Improved This is from a combination of heart failure, COVID, and COPD. He has gone up and down with his oxygen needs. At times he is actually on room air. Then he goes back up to needing oxygen. His Echo shows moderate global hypokinesis with an ejection fraction of 40%, and valves were not visualized. Right ventricle was not visualized. He had basal to mid inferior wall and basal to mid inferola teral wall segments that was thinned and akinetic. He had basal to mid anterolateral wall that was severely hypokinetic to akinetic. He teeters between almost being ready to go to a intermediate facility for rehab to worsening of chronic problems such as hypoxia, and orthostatic hypotension. Plan: Continue treating all his clinic current comorbidities, and his target O2 saturation is 90% or higher 7. Chronic systolic heart failure. He is not overloaded from fluid intake. He has not been on maintenance IV fluids since October 01. Right now all of his intake is po and IV flushes. He is on Coreg 6.25 p.o. twice daily. Minimal dose of Lasix 20 p.o. daily. Small dose of Aldactone at 25 p.o. daily. Unable to tolerate even 2.5 mg of enalapril a day. Plan: We will decrease his Coreg down to 3.125 twice daily We will stop his Lasix We will decrease his Aldactone down to 12.5 only on Friday Continue the holding parameters in place 8. NSTEMI. He had CP before adm along with SOB and ruled in for an NSTEMI. [facility]. His Echo shows moderate global hypokinesis with an ejection fraction of 40%, and valves were not visualized. Right ventricle was not visualized. He had basal to mid inferior wall and basal to mid inferolateral wall segments that was thinned and akinetic. He had basal to mid anterolateral wall that was severely hypokinetic to akinetic. Plan: Continue with cardiac med changes as described in #6, holding parameters are in place 9. COVID-19 pneumonia Resolved. He has been off of contact isolation for several days. 10. Pleuritic chest pain Slowly improving 11. Insomnia Somewhat improved with no interruptions for vital signs and with sleeping med given 12. Heartburn He continues to have what he calls heartburn Plan: Continue Tums as needed and daily Protonix oral 13. Unspecified Protein calorie malnutrition His diabetic diet has been changed to regular diet because of his extreme only limited desire to eat 14. Type 2 diabetes mellitus Glu is controlled on metformin - Current Meds Current Meds: Current Medications Generic Name Dose Route Start Last Admin Trade Name Flor PRN Reason Stop Dose Admin Acetaminophen 650 mg 09/26/22 20:29 10/07/22 20:05 Acetaminophen 325 Mg Tablet PO 650 mg Q4HR PRN Administration Pain 1 to 4, or Fever Al Hydroxide/Mg Hydroxide 30 ml 10/07/22 15:06 10/07/22 20:43 Mag Hydrox/Al Hydrox/Simeth 30 Ml Udc PO 30 ml Q4HR PRN Administration INDIGESTION Albuterol/Ipratropium 3 ml 09/26/22 20:32 10/06/22 15:11 Ipratropium/Albuterol 3 Ml Neb INH 3 ml Q4HR PRN Administration Wheezing Aspirin 81 mg 09/27/22 13:40 10/08/22 09:20 Aspirin Ec 81 Mg Tablet PO 81 mg DAILY CATE Administration Atorvastatin Calcium 40 mg 09/27/22 21:00 10/08/22 21:41 Atorvastatin 40 Mg Tablet PO 40 mg QPM CATE Administration Calcium Carbonate/Glycine 500 mg 09/29/22 07:58 10/07/22 15:42 Calcium Carbonate Chew 500 Mg Tablet PO 500 mg TID PRN Administration Heartburn Carvedilol 6.25 mg 09/29/22 12:50 10/08/22 21:41 Carvedilol 3.125 Mg Tablet PO 6.25 mg BID CATE Administration Cholecalciferol 50 mcg 10/01/22 09:00 10/08/22 09:20 Cholecalciferol 25 Mcg Tablet PO 50 mcg DAILY CATE Administration Clopidogrel Bisulfate 75 mg 09/28/22 10:00 10/08/22 09:20 Clopidogrel 75 Mg Tablet PO 75 mg DAILY CATE Administration Cyanocobalamin 500 mcg 09/30/22 17:00 10/08/22 09:20 Cyanocobalamin 500 Mcg Tablet PO 500 mcg DAILY CATE Administration Docusate Sodium 250 - 500 mg 10/03/22 09:00 10/08/22 09:20 Docusate Sodium 250 Mg Capsule PO 250 mg DAILY CATE Administration Guaifenesin 600 mg 09/27/22 21:00 10/08/22 21:41 Guaifenesin 600 Mg Tablet PO 600 mg BID CATE Administration Insulin Human Lispro 1 - 5 unit 09/27/22 17:00 10/09/22 07:59 Insulin Lispro 300 Unit/3 Ml Pen SUBQ Not Given 0800,1200,1700,2100 [facility] Protocol Lidocaine 1 patch 09/29/22 19:11 10/05/22 11:47 Lidocaine Patch 5% TOP 1 patch DAILY PRN Administration PAIN Metformin HCl 500 mg 09/30/22 08:00 10/08/22 17:23 Metformin 500 Mg Tablet PO 500 mg BIDWM CATE Administration Midodrine 10 mg 10/07/22 17:00 10/08/22 17:23 Midodrine 10 Mg Tablet PO 10 mg TIDWM CATE Administration Oxycodone HCl 5 mg 10/06/22 14:58 10/08/22 13:51 Oxycodone 5 Mg Tablet PO 5 mg Q4HR PRN Administration PAIN Pantoprazole Sodium 40 mg 09/30/22 07:00 10/09/22 06:06 Pantoprazole 40 Mg Tablet PO 40 mg QDAC CATE Administration Polyethylene Glycol 17 gm 09/28/22 09:00 10/08/22 09:21 Polyethylene Glycol 3350 17 Gm Packet PO Not Given DAILY [facility] Senna 8.6 - 17.2 mg 09/28/22 07:16 10/08/22 10:08 Senna 8.6 Mg Tablet PO 17.2 mg DAILY PRN Administration Constipation Sertraline HCl 50 mg 09/28/22 10:00 10/08/22 09:20 Sertraline 50 Mg Tablet PO 50 mg DAILY CATE Administration Sodium Chloride 10 ml 09/27/22 01:00 10/08/22 23:50 Sodium Chloride Flush 0.9% 10 Ml Syringe IVP 10 ml 0100,0900,1700 [facility] Administration Spironolactone 25 mg 09/29/22 12:51 10/08/22 09:20 Spironolactone 25 Mg Tablet PO 25 mg DAILY CATE Administration Tamsulosin HCl 0.4 mg 09/29/22 09:00 10/08/22 09:20 Tamsulosin 0.4 Mg Capsule PO 0.4 mg DAILY CATE Administration Tramadol HCl 50 mg 10/03/22 18:00 10/08/22 21:41 Tramadol 50 Mg Tablet PO 50 mg Q4HR PRN Administration PAIN Zolpidem Tartrate 5 mg 09/30/22 08:33 10/08/22 21:41 Zolpidem 5 Mg Tablet PO 5 mg QPM PRN Administration Insomnia - Lab Result Fish Bone Diagrams: 10/10/22 06:51 10/10/22 06:51 - Additional Planning My Orders: My Active Orders 10/09/22 08:27 ED C-Collar Cleared ONCE Subjective - Subjective Patient Reports: Resting Comfortably (sitting in chair), Other (Wants warm food and milk or ice cream for his acidy stomach pain) Objective Vital Signs: Vital Signs - 24 hr 10/08/22 10/09/22 10/09/22 16:00 00:00 06:27 Temperature 36.9 C 36.4 C L Heart Rate [ 65 62 Brachial] Respiratory 16 18 Rate Blood Pressure 135/73 H [Right Brachial artery] Blood Pressure 99/61 [Right Radial artery] O2 Saturation 96 100 93 If not protocol 1 : Oxygen Flow, liters/minute 10/09/22 07:40 Temperature 36.3 C L Heart Rate [ 64 Brachial] Respiratory 18 Rate Blood Pressure 121/64 [Right Brachial artery] Blood Pressure [Right Radial artery] O2 Saturation 95 If not protocol : Oxygen Flow, liters/minute Oxygen O2 Source Room air I&O (Last 24 Hrs): Intake and Output Totals x24h 10/07/22 10/08/22 10/09/22 23:59 23:59 23:59 Intake Total 460 626 Balance 460 626 General: Alert, Oriented x3, Other (Appears tired) HEENT: Mucous membr. moist/pink Neck: Supple, No JVD Neuro: Alert, Non Focal Cardiovascular: No murmurs Respiratory: No respiratory distress, Breath sounds nml Abdomen: Normal bowel sounds, Soft, No tenderness Extremities: No clubbing, No edema - Results Results: Laboratory Results Specimen Type BLOOD 10/05/22 07:56 WBC 9.1 x10^3/uL (4.8-10.8) 10/07/22 05:23 RBC 2.34 10^6/uL (4.70-6.10) L 10/07/22 05:23 Hgb 7.8 g/dL (14.0-18.0) L 10/07/22 05: Hct 24.5 % (42.0-52.0) L 10/07/22 05:23 MCV 104.7 fL (80.0-94.0) H 10/07/22 05:23 MCH 33.3 pg (27.0-31.0) H 10/07/22 05: MCHC 31.8 g/dL (32.0-36.0) L 10/07/22 05: RDW 15.0 % (12.0-15.0) 10/07/22 05:23 Plt Count 191 10^3/uL (130-450) 10/07/22 05: MPV 10.1 fL (7.4-11.4) 10/07/22 05:23 Neut # (Auto) 5.5 10^3/uL (1.5-6.6) 10/07/22 05:23 Lymph # (Auto) 2.0 10^3/uL (1.5-3.5) 10/07/22 05:23 Cloud # (Auto) 1.0 10^3/uL (0.0-1.0) 10/07/22 05:23 Eos # (Auto) 0.2 10^3/uL (0.0-0.7) 10/07/22 05:23 Baso # (Auto) 0.0 10^3/uL (0.0-0.1) 10/07/22 05:23 Absolute Nucleated RBC 0.04 x10^3/uL 10/07/22 05:23 Total Counted 100 10/06/22 08:36 Band Neuts % (Manual) 3 % (0-10) 10/06/22 08:36 Abnorm Lymph % (Manual) 0 % 10/06/22 08:36 Metamyelocytes % 1 % (-0) H 10/06/22 08:36 Myelocytes % 2 % (-0) H 10/06/22 08:36 Plasma Cell % (Manual) 2 % 10/05/22 07:56 Nucleated RBC % 0.4 /100WBC 10/07/22 05:23 Neutrophils # (Manual) 8.5 10^3/uL (1.5-6.6) H 10/06/22 08:36 Lymphocytes # (Manual) 1.8 10^3/uL (1.5-3.5) 10/06/22 08:36 Monocytes # (Manual) 1.2 10^3/uL (0.0-1.0) H 10/06/22 08:36 Eosinophils # (Manual) 0.1 10^3/uL (0-0.7) 10/06/22 08:36 Basophils # (Manual) 0.0 10^3/uL (0-0.1) 10/06/22 08:36 Nucleated RBCs 2 % 10/06/22 08:36 Differential Comment MANUAL DIFFERENTIAL 10/06/22 08:36 Manual Slide Review Indicated 10/06/22 08:36 Pathologist Review SEE SEPARATE REPORT 10/05/22 07:56 WBC Morphology 1+ VACUOLA (NORMAL) 10/06/22 08:36 Platelet Estimate NORMAL (130-450,000) (NORMAL) 10/06/22 08:36 Platelet Morphology NORMAL DERIAN (NORMAL) 10/06/22 08:36 RBC Morph Micro Appear 2+ ANISOCYTOSIS (NORMAL) 2+ HYPOCHROMASIA (NORMAL) 1+ POLYCHROMASIA (NORMAL) 10/06/22 08:36 RBC Morph Micro Appear 2+ ANISOCYTOSIS (NORMAL) 2+ HYPOCHROMASIA (NORMAL) 1+ POLYCHROMASIA (NORMAL) 10/06/22 08:36 RBC Morph Micro Appear 2+ ANISOCYTOSIS (NORMAL) 2+ HYPOCHROMASIA (NORMAL) 1+ POLYCHROMASIA (NORMAL) 10/06/22 08:36 PT 13.5 secs (9.9-12.6) H 09/27/22 10:52 INR 1.2 (0.8-1.2) 09/27/22 10:52 Bld Gas Analysis Time 0910/07/22 09:18 Sample Site RIGHT RADIAL 10/07/22 09:18 ABG pH 7.48 (7.35-7.45) H 10/07/22 09:18 ABG pCO2 40 mmHg (34-45) 10/07/22 09:18 ABG pO2 69 mmHg (80-100) L 10/07/22 09:18 ABG HCO3 29.8 mmol/L (22.0-26.0) H 10/07/22 09:18 ABG Total CO2 31.0 MMOL/L (21.0-29.0) H 10/07/22 09:18 ABG O2 Saturation 95 % (94-98) 10/07/22 09:18 ABG Base Excess 6.0 mmol/L (-2.0-3.0) H 10/07/22 09:18 Geovanni Test POSITIVE 10/07/22 09:18 VBG pH 7.338 (7.31-7.41) 09/26/22 16:42 VBG pCO2 46.2 mmHg (41-51) 09/26/22 16:42 VBG pO2 20.8 mmHg (25-47) L 09/26/22 16:42 VBG HCO3 24.3 mmol/L (23-28) 09/26/22 16:42 VBG Total CO2 25.7 mmol/L (24-29) 09/26/22 16:42 VBG O2 Saturation 33.5 % (60-80) L 09/26/22 16:42 VBG Base Excess -1.8 mmol/L (-2 - +2) 09/26/22 16:42 Room Air YES 10/07/22 09:18 Sodium 134 mmol/L (135-145) L 10/09/22 07:27 Potassium 4.1 mmol/L (3.5-5.0) 10/09/22 07:27 Chloride 95 mmol/L (101-111) L 10/09/22 07:27 Carbon Dioxide 28 mmol/L (21-32) 10/09/22 07:27 Anion Gap 11.0 (6-13) 10/09/22 07:27 BUN 21 mg/dL (6-20) H 10/09/22 07:27 Creatinine 1.0 mg/dL (0.6-1.2) 10/09/22 07:27 Estimated GFR (MDRD) 72 (>89) L 10/09/22 07:27 Glucose 132 mg/dL (70-100) H 10/09/22 07:27 POC Whole Bld Glucose 119 mg/dL (70 - 100) H 10/09/22 07:38 Estimat Average Glucose 137 mg/dL (70-100) H 09/27/22 10:52 Hemoglobin A1c % 6.4 % (4.27-6.07) H 09/27/22 10:52 Lactic Acid 1.3 mmol/L (0.5-2.2) 09/27/22 10:52 Calcium 8.3 mg/dL (8.5-10.3) L 10/09/22 07:27 Magnesium 1.7 mg/dL (1.7-2.8) 09/26/22 16:42 Total Bilirubin 0.7 mg/dL (0.2-1.0) 09/26/22 16:42 AST 37 IU/L (10-42) 09/26/22 16:42 ALT 27 IU/L (10-60) 09/26/22 16:42 Alkaline Phosphatase 43 IU/L (42-121) 09/26/22 16:42 Troponin I High Sens 78.2 ng/L (2.3-19.7) H* 09/28/22 05:25 B-Natriuretic Peptide 291 pg/mL (5-100) H 10/08/22 09:14 Total Protein 7.1 g/dL (6.7-8.2) 09/26/22 16:42 Albumin 3.7 g/dL (3.2-5.5) 09/26/22 16:42 Globulin 3.4 g/dL (2.1-4.2) 09/26/22 16:42 Albumin/Globulin Ratio 1.1 (1.0-2.2) 09/26/22 16:42 Triglycerides 99 mg/dL (-149) 09/29/22 06:12 Cholesterol 72 mg/dL (-199) 09/29/22 06:12 LDL Cholesterol, Calc 28 mg/dL (-129) 09/29/22 06:12 VLDL Cholesterol 20 mg/dL 09/29/22 06:12 HDL Cholesterol 24 mg/dL (60-) L 09/29/22 06:12 LDL/HDL Ratio 1.2 (<3.6) 09/29/22 06:12 Cholesterol/HDL Ratio 3.0 (<5.0) 09/29/22 06:12 Vitamin B12 282 pg/mL (180-914) 09/30/22 07:39 Folate 15.58 ng/mL (5.90 - >24.8) 09/30/22 07:39 Nasal Adenovirus (PCR) NOT DETECTED 09/26/22 16:43 Nasal B. parapertussis DNA (PCR) NOT DETECTED 09/26/22 16:43 Nasal Coronavir 229E PCR NOT DETECTED 09/26/22 16:43 Nasal Coronavir HKU1 PCR NOT DETECTED 09/26/22 16:43 Nasal Coronavir NL63 PCR NOT DETECTED 09/26/22 16:43 Nasal Coronavir OC43 PCR NOT DETECTED 09/26/22 16:43 Nasal Enterovir/Rhinovir PCR NOT DETECTED 09/26/22 16:43 Nasal Influenza B PCR NOT DETECTED 09/26/22 16:43 Nasal Influenza A PCR NOT DETECTED 09/26/22 16:43 Nasal Parainfluen 1 PCR NOT DETECTED 09/26/22 16:43 Nasal Parainfluen 2 PCR NOT DETECTED 09/26/22 16:43 Nasal Parainfluen 3 PCR NOT DETECTED 09/26/22 16:43 Nasal Parainfluen 4 PCR NOT DETECTED 09/26/22 16:43 Nasal RSV (PCR) NOT DETECTED 09/26/22 16:43 Nasal B.pertussis DNA PCR NOT DETECTED 09/26/22 16:43 Nasal C.pneumoniae (PCR) NOT DETECTED 09/26/22 16:43 Leroy Human Metapneumo PCR NOT DETECTED 09/26/22 16:43 Nasal M.pneumoniae (PCR) NOT DETECTED 09/26/22 16:43 Nasal SARS-CoV-2 (PCR) DETECTED A 09/26/22 16:43 - Procedures Procedures: Procedures REPOSITION LEFT UPPER FEMUR WITH INTRAMED FIX, OPEN APPROACH (05/25/16) TRANSFUSE NONAUT FROZEN PLASMA IN PERIPH VEIN, PERC (05/25/16)
[2022-10-09 09:53] LABS: % IRON SATURATION 37 % (20-50); IRON 101 ug/dL (45-182); TOTAL IRON BINDING CAPACITY 270 ug/dL (250-450); TRANSFERRIN 193 mg/dL (180-329)
[2022-10-09] MEDS: DOCUSATE SODIUM 250 MG CAPSULE PO SCH (10:09)
[2022-10-09] MEDS: TAMSULOSIN 0.4 MG CAPSULE PO SCH (10:09)
[2022-10-09] MEDS: guaiFENesin 600 MG TABLET PO SCH (10:09)
[2022-10-09] MEDS: CLOPIDOGREL 75 MG TABLET PO SCH (10:09)
[2022-10-09] MEDS: MIDODRINE 10 MG TABLET PO SCH ×3 (10:09→17:07)
[2022-10-09] MEDS: SPIRONOLACTONE 25 MG TABLET PO SCH (10:10)
[2022-10-09] MEDS: ASPIRIN EC 81 MG TABLET PO SCH (10:10)
[2022-10-09] MEDS: SERTRALINE 50 MG TABLET PO SCH (10:10)
[2022-10-09] MEDS: SENNA 8.6 MG TABLET PO PRN (10:10)
[2022-10-09] MEDS: CYANOCOBALAMIN 500 MCG TABLET PO SCH (10:10)
[2022-10-09] MEDS: carvediloL 3.125 MG TABLET PO SCH ×2 (10:10→20:33)
[2022-10-09] MEDS: CHOLECALCIFEROL 25 MCG TABLET PO SCH (10:10)
[2022-10-09] MEDS: metFORMIN 500 MG TABLET PO SCH ×2 (10:15→17:07)
[2022-10-09] MEDS: polyethylene glycoL 3350 17 GM PACKET PO SCH (10:15)
[2022-10-09] MEDS: SODIUM CHLORIDE FLUSH 0.9% 10 ML SYRINGE IVP SCH ×2 (10:16→17:08)
[2022-10-09] MEDS ORDERED: oxyCODONE 5 MG TABLET PO PRN (10:56)
[2022-10-09] MEDS: traMADol 50 MG TABLET PO PRN (19:32)
[2022-10-09] MEDS: ZOLPIDEM 5 MG TABLET PO PRN (20:33)
[2022-10-09] MEDS: ATORVASTATIN 40 MG TABLET PO SCH (20:33)
[2022-10-10] MEDS: SODIUM CHLORIDE FLUSH 0.9% 10 ML SYRINGE IVP SCH ×3 (02:00→17:07)
[2022-10-10] MEDS: PANTOPRAZOLE 40 MG TABLET PO SCH (06:33)
[2022-10-10 07:07] LABS: BASOPHILS % (AUTO) 0.2 %; EOSINOPHILS # (AUTO) 0.1 10^3/uL (0.0-0.7); EOSINOPHILS % (AUTO) 1.1 %; HCT - HEMATOCRIT 29.2 % (42.0-52.0); HGB - HEMOGLOBIN 9.1 g/dL (14.0-18.0); LYMPHOCYTES # (AUTO) 1.5 10^3/uL (1.5-3.5); LYMPHOCYTES % (AUTO) 12.7 %; MEAN CORPUSCULAR HEMOGLOBIN 33.6 pg (27.0-31.0); MEAN CORPUSCULAR HGB CONC 31.2 g/dL (32.0-36.0); MEAN CORPUSCULAR VOLUME 107.7 fL (80.0-94.0); MEAN PLATELET VOLUME 9.9 fL (7.4-11.4); MONOCYTES % (AUTO) 8.4 %; NEUTROPHILS # (AUTO) 8.9 10^3/uL (1.5-6.6); NEUTROPHILS % (AUTO) 76.7 %; NRBC ABSOLUTE COUNT (AUTO) 0.02 x10^3/uL; NUCLEATED RED BLOOD CELLS AUTO 0.2 /100WBC; PLT - PLATELET COUNT 202 10^3/uL (130-450); RED BLOOD COUNT 2.71 10^6/uL (4.70-6.10); WHITE BLOOD COUNT 11.6 x10^3/uL (4.8-10.8)
[2022-10-10 07:11] LABS: CALCIUM 8.8 mg/dL (8.5-10.3); MAGNESIUM 1.8 mg/dL (1.7-2.8)
[2022-10-10] MEDS: carvediloL 3.125 MG TABLET PO SCH ×2 (07:29→20:32)
[2022-10-10] MEDS: metFORMIN 500 MG TABLET PO SCH ×2 (07:29→17:06)
[2022-10-10] MEDS: DOCUSATE SODIUM 250 MG CAPSULE PO SCH (07:29)
[2022-10-10] MEDS: CLOPIDOGREL 75 MG TABLET PO SCH (07:29)
[2022-10-10] MEDS: TAMSULOSIN 0.4 MG CAPSULE PO SCH (07:29)
[2022-10-10] MEDS: SERTRALINE 50 MG TABLET PO SCH (07:29)
[2022-10-10] MEDS: ASPIRIN EC 81 MG TABLET PO SCH (07:30)
[2022-10-10] MEDS: MIDODRINE 10 MG TABLET PO SCH ×3 (07:30→17:06)
[2022-10-10] MEDS: CYANOCOBALAMIN 500 MCG TABLET PO SCH (07:30)
[2022-10-10] MEDS: polyethylene glycoL 3350 17 GM PACKET PO SCH (07:30)
[2022-10-10] MEDS: CHOLECALCIFEROL 25 MCG TABLET PO SCH (07:30)
--- NOTE | 2022-10-10 07:57 | Discharge Plan ---
"Discharge Plan for SNF / [facility] - Discharge Plan And Transition Orders Problem Reviewed?: Yes Disposition: 03 SNF DC/Xfer Condition: Fair Allergies and Adverse Reactions: Allergies Allergy/AdvReac Type Severity Reaction Status Date / Time heparin AdvReac Unknown Unknown Verified 09/29/22 15:57 Health Concerns: Patient has a history of CHF and diabetes. He presented with respiratory distress, hypoxia and was diagnosed with a COVID-pneumonia and CHF and had an acute NSTEMI at presentation. He slowly recovered from the pneumonia. He developed pleuritic chest pain which we suspect is from a very large chest wall and abdominal wall hematoma that occurred after being on therapeutic Lovenox plus aspirin and Plavix for his AR. His diabetes was initially treated with insulin but because of his extremely limited desire for certain foods, a regular diet was ordered and sliding scale insulin was stopped. Treatment with metformin and fingerstick checks continue, in order to prevent hypoglycemia. He has severe orthostatic hypotension, thus his cardiac med doses have needed to be de-escalated and midodrine started and that dose has been maximized. He suffered a fall while hospitalized, felt to be from orthostasis and generalized weakness. A CT head and neck showed no trauma. Then Florinef was started and helped the orthostasis, but we are monitoring for fluid overload from that. He is very deconditioned because of a long hospital stay and the orthostasis, needs PT and OT rehab. Plan of Treatment: Medical management for his CHF, diabetes and orthostasis. Rehab for stre ngthening, before returning home. Care Goals: Improvement in symptoms and stabilization are the goals. Assessment: Patient understands and is agreeable with the plan. - SNF / HALFWAY Transition Orders Admit to (Facility): [facility] Under the care of (Name): Dr Denilson Sanchez or on-site provider Discharge Diagnosis: 1. Acute respiratory failure with hypoxia This was from COVID pneumonia and CHF. No supplemental O2 at discharge. 2. COVID-19 pneumonia Resolved, got Remdesivir and Decadron. He has been off of contact isolation for several days. 3. NSTEMI. He had CP before adm along with SOB and ruled in for an NSTEMI. His Echo showed LVEF of 40%. 4. Chronic systolic heart failure. On low doses of meds due to orthostatic hypotension 5. Hematoma of breast This developed from coughing while on the anticoagulation for his NSTEMI when he was on therapeutic Lovenox, aspirin, and Plavix. 6. Hematoma of chest wall 7. Hematoma of abdominal wall. 8. Pleuritic chest pain He has chest wall pain from his large hematoma on his chest wall and abdomimal wall 9. Orthostatic hypotension He is on max dose Midodrine, needs daily TEDS stockins put on, on daily Florinef, and is on lowest doses of cardiac meds. 10. Fall during current hospitalization Likely from orthostasis. Head CT and C-spine were cleared and meds further adjusted to manage his orthostasis. 11. Type 2 diabetes mellitus Glu is controlled on metformin and he is on a Regular (not a Diabetic) diet. Fingerstick checks are to check for hypoglycemia, and a sliding scale of Insulin was stopped. 12. Insomnia Somewhat improved when no interruptions for vital signs and with sleeping med given 13. Heartburn He requests warm food and milk, to help these sx. Nenafran TL ordered prn for nausea 14. Unspecified Protein calorie malnutrition His diabetic diet has been changed to regular diet because of his limited desire to eat only specific foods. 15. BPH 16. Anxiety Ativan ordered prn 17. Lung nodule. On the CAT scan of the chest he had a 1 cm right upper lobe pulmonary nodule. Pt needs to talk with his doctor about repeat imaging to assess. Medicare Certification Statement: I certify that [facility] care is medically necessary on a continuing basis for any of the conditions for which she/he is receiving care during hospitalization. Notify PCP of admission and forward orders to primary provider for signature. Weight on admission and: Weekly Call PCP immediately if weight increases by: 5 kg Other Notification Orders: Call PCP immediately if patient develops dyspnea, chest pain/tightness or edema. House Bowel Program: Yes Additional Bowel Program Orders: If no BM after 2 days, nurse may give M.O.M. 30ml PO PRN and/or ducolax Supp 1 [place] and/or PAVAN 250mg P.O., and/or senna 1-2 tabs PO. On day 3 nurse may give repeat above order until residents constipation is resolved. Annual Influenza Vaccine (between May 02 and November 29): Yes Two-step PPD per [facility] [phone] or approved exception documents: Yes Treatments & Other Orders: Daily PT and OT. TEDS compression stockings on every morning, off at bedtime Medication Orders: PLEASE REFER TO THE DISCHARGE MEDICATION LIST. Insulin Orders?: No - Medications New Prescriptions: Mag Hydrox/Al Hydrox/Simeth [Mylanta Plus] 30 ml PO Q4HR PRN #60 ea PRN Reason: Indigestion traMADol [Ultram] 50 mg PO Q4HR PRN #20 tab PRN Reason: Pain oxyCODONE [Roxicodone] 5 mg PO Q6HR PRN #20 tab PRN Reason: Pain 5-7 Spironolactone [Aldactone] 12.5 mg PO MOWEFR #9 tab Zolpidem [Ambien] 5 mg PO QPM PRN #30 tab PRN Reason: Insomnia LORazepam [Ativan] 0.5 mg PO Q8H PRN #15 tablet PRN Reason: Anxiety Docusate Sodium 250Mg Capsule [Colace 250Mg Capsule] 250 - 500 mg PO DAILY #60 cap carvediloL [Coreg] 3.125 mg PO BID #60 tab Aspirin EC [Ecotrin] 81 mg PO DAILY #30 tab Fludrocortisone [Florinef] 0.1 mg PO DAILY #30 tab metFORMIN [Glucophage] 500 mg PO BIDWM #60 tab Furosemide [Lasix] 20 mg PO DAILY PRN #15 tab PRN Reason: As Needed Per Provider Orders Clopidogrel [Plavix] 75 mg PO DAILY #30 tab Midodrine [ProAmantine] 10 mg PO TIDWM #90 tab Pantoprazole [Protonix] 40 mg PO QDAC #30 tab Calcium Carbonate [Tums (Calcium Carbonate 500mg)] 500 mg PO TID PRN #90 tab PRN Reason: Heartburn Cyanocobalamin [Vitamin B-12] 500 mcg PO DAILY #30 tab ONDANSETRON ODT Prepack 2 [ZOFRAN ODT Prepack 2] 4 mg TL Q6H PRN #30 tablet PRN Reason: Nausea / Vomiting - Diet Type: Geriatric Texture: Regular Liquids: Thin Supplements: 4oz Ensure or whole milk once a day May have monthly special meal: Yes - Therapies | Activity Therapy: Evaluation | Treat if indicated: PT, OT Rehabilitation Potential: Maximize functional status Activity: Activity as Tolerated Weight Bearing: Full Weight Assistance Devices: Walker Additional Instructions: On the CAT scan of the chest he had a 1 cm right upper lobe pulmonary nodule. Pt needs to talk with his doctor about repeat imaging to assess. Needs appointment to PCP after Dch from SNF. Follow Up: See PCP after discharge from SNF. Insulin Orders - SNF Basal | Correction | Custom Orders: Diagnosis: Diabetes Initiate hypo glycemia protocols for BG <70. May check BG PRN for signs/symptoms of dysglycemia. Frequency of BG checks: [prn]"
[2022-10-10] MEDS ORDERED: SPIRONOLACTONE 25 MG TABLET PO SCH (09:00)
--- NOTE | 2022-10-10 09:35 | PROVIDER PROGRESS NOTE ---
Assessment/Plan - Problem List (1) Orthostatic hypotension Assessment/Plan: Yesterday, I stopped his daily Lasix, decreased his Coreg from 6.25 twice daily to 3.125 twice daily, and decreased his daily spironolactone from 25 mg daily to 12.5 mg and to give only on Friday. I reviewed his labs and VS. The patient is still orthostatic today despite being on Midodrine 10 mg TID with meals, for several days now (sitting BP 107, standing BP 83 today). I suspect he has autonomic dysfunction from DM. I discussed that Dx with at bedside when she asked what else can be done. Plan: He is not yet safe for [facility] today with systolic BPs of 80's, so the planned discharge to SNF today will be canceled. Will start Florinef 0.1 mg daily to help BP. I explained to patient and at bedside that this will cause salt and water retention therefore we need to monitor him, because of his CHF history, to assure there is not excessive salt and water retention to cause pulmonary edema. I suspect he will need to be here about 2 more days. Continue with the Tamsulosin which he needs for prostate trouble, dose will not change Continue with Midodrine which is at maximum dose Continue with AILYN compression stockings on the morning, off at at bedtime I have asked PT and OT to do exercises with him while seated today Will check an a.m. cortisol level, if not done this admission. 2. Anemia I reviewed his labs. This patient has had a stable but low hemoglobin of 9.5-10. Plan: Will check Iron stores, B12 and Folate levels to explain his anemia, which could be adding to low BP, but I suspect he has anemia of chronic disease 3. Fall during current hospitalization Qualifiers: Encounter type: subsequent encounter Qualified Code(s): W19.XXXD - Unspecified fall, subsequent encounter; Y92.239 - Unspecified place in hospital as the place of occurrence of the external cause Assessment/Plan: On 10/08 at approximately 2300, the patient was sitting at the edge of the bed dangling, there was a bedside table in front of him which he pushed forward and apparently tried to stand on his own. He was found on the ground and had a left elbow and left knee skin tear. I am not sure if a fingerstick glu check was done. He underwent head CT and C-spine CT and both were negative for any trauma or new problems. Will cancel sliding scale insulin coverage as he is on a Reg diet. Plan: Because he is still orthostatic today he is not ready for discharge Will cancel the neurochecks every 4 hours Fingersticks will be prn. 4. Hematoma of breast He still has chest wall pain from this hematoma on his breast, sternum I think this was from coughing while on the anticoagulation for his NSTEMI when he was on therapeutic Lovenox, Motrin, aspirin, and Plavix. His weight was accidently recorded as being 193 kg and he received Lovenox for that weight. Then in 1 day alone, the previous Hospitalist observed large hematomas/ecchymoses spontaneously forming over his triceps and forearms. Once we then got his pain from the chest wall controlled, he seemed to be breathing better and mobilizing more secretions. Plan: Continue pain meds as needed 5. Hematoma of chest wall As in #3 6. Hematoma of abdominal wall. As in #3 7. Acute respiratory failure with hypoxia Improved This is from a combination of heart failure, COVID, and COPD. He has gone up and down with his oxygen needs. At times he is actually on room air. Then he goes back up to needing oxygen. His Echo shows moderate global hypokinesis with an ejection fraction of 40%, and valves were not visualized. Right ventricle was not visualized. He had basal to mid inferior wall and basal to mid inferolateral wall segments that was thinned and akinetic. He had basal to mid anterolateral wall that was severely hypokinetic to akinetic. He teeters between almost being ready to go to a retirement facility for rehab to worsening of chronic problems such as hypoxia, and orthostatic hypotension. Plan: Continue treating all his clinic current comorbidities, and his target O2 saturation is 90% or higher 8. Chronic systolic heart failure. He is not overloaded from fluid intake. He has not been on maintenance IV fluids since October 01. Right now all of his intake is po and IV flushes. He is on Coreg 6.25 p.o. twice daily. Minimal dose of Lasix 20 p.o. daily. Small dose of Aldactone at 25 p.o. daily. Unable to tolerate even 2.5 mg of enalapril a day. Yesterday, I stopped his daily Lasix, decreased his Coreg from 6.25 twice daily to 3.125 twice daily, and decreased his daily spironolactone from 25 mg daily to 12.5 mg and to give only on Friday. Plan: Continue these meds and the holding parameters in place 9. NSTEMI. He had CP before adm along with SOB and ruled in for an NSTEMI. [facility]. His Echo shows moderate global hypokinesis with an ejection fraction of 40%, and valves were not visualized. Right ventricle was not visualized. He had basal to mid inferior wall and basal to mid inferolateral wall segments that was thinned and akinetic. He had basal to mid anterolateral wall that was severely hypokinetic to akinetic. Plan: Continue with cardiac med changes as described in #1, holding parameters are in place 10. Type 2 diabetes mellitus Glu is controlled on metformin I cancelled sliding scale insulin coverage since he is on a Reg diet. Plan: Fingersticks will be prn. 11. COVID-19 pneumonia Resolved. He has been off of contact isolation for several days. 12. Pleuritic chest pain Slowly improving 13. Insomnia Somewhat improved with no interruptions for vital signs and with sleeping med given 14. Heartburn He continues to have what he calls heartburn and today nausea Plan: Continue Tums as needed and daily Protonix oral Will continue iv or TL Zofran prn 15. Unspecified Protein calorie malnutrition His diabetic diet has been changed to regular diet because of his extreme only limited desire to eat - Current Meds Current Meds: Current Medications Generic Name Dose Route Start Last Admin Trade Name Freq PRN Reason Stop Dose Admin Acetaminophen 650 mg 09/26/22 20:29 10/07/22 20:05 Acetaminophen 325 Mg Tablet PO 650 mg Q4HR PRN Administration Pain 1 to 4, or Fever Al Hydroxide/Mg Hydroxide 30 ml 10/07/22 15:06 10/07/22 20:43 Mag Hydrox/Al Hydrox/Simeth 30 Ml Udc PO 30 ml Q4HR PRN Administration INDIGESTION Albuterol/Ipratropium 3 ml 09/26/22 20:32 10/06/22 15:11 Ipratropium/Albuterol 3 Ml Neb INH 3 ml Q4HR PRN Administration Wheezing Aspirin 81 mg 09/27/22 13:40 10/10/22 07:30 Aspirin Ec 81 Mg Tablet PO 81 mg DAILY CATE Administration Atorvastatin Calcium 40 mg 09/27/22 21:00 10/09/22 20:33 Atorvastatin 40 Mg Tablet PO 40 mg QPM CATE Administration Calcium Carbonate/Glycine 500 mg 09/29/22 07:58 10/07/22 15:42 Calcium Carbonate Chew 500 Mg Tablet PO 500 mg TID PRN Administration Heartburn Carvedilol 3.125 mg 10/09/22 21:00 10/10/22 07:29 Carvedilol 3.125 Mg Tablet PO 3.125 mg BID CATE Administration Cholecalciferol 50 mcg 10/01/22 09:00 10/10/22 07:30 Cholecalciferol 25 Mcg Tablet PO 50 mcg DAILY CATE Administration Clopidogrel Bisulfate 75 mg 09/28/22 10:00 10/10/22 07:29 Clopidogrel 75 Mg Tablet PO 75 mg DAILY CATE Administration Cyanocobalamin 500 mcg 09/30/22 17:00 10/10/22 07:30 Cyanocobalamin 500 Mcg Tablet PO 500 mcg DAILY CATE Administration Docusate Sodium 250 - 500 mg 10/03/22 09:00 10/10/22 07:29 Docusate Sodium 250 Mg Capsule PO 250 mg DAILY CATE Administration Lidocaine 1 patch 09/29/22 19:11 10/05/22 11:47 Lidocaine Patch 5% TOP 1 patch DAILY PRN Administration PAIN Metformin HCl 500 mg 09/30/22 08:00 10/10/22 07:29 Metformin 500 Mg Tablet PO 500 mg BIDWM CATE Administration Midodrine 10 mg 10/07/22 17:00 10/10/22 07:30 Midodrine 10 Mg Tablet PO 10 mg TIDWM CATE Administration Ondansetron HCl 4 mg 09/26/22 20:29 10/10/22 08:36 Ondansetron 4 Mg/2 Ml Vial IVP 4 mg Q6HR PRN Administration Nausea / Vomiting Oxycodone HCl 5 mg 10/09/22 10:56 10/09/22 14:57 Oxycodone 5 Mg Tablet PO 5 mg Q6HR PRN Administration PAIN 5-7 Pantoprazole Sodium 40 mg 09/30/22 07:00 10/10/22 06:33 Pantoprazole 40 Mg Tablet PO 40 mg QDAC CATE Administration Polyethylene Glycol 17 gm 09/28/22 09:00 10/10/22 07:30 Polyethylene Glycol 3350 17 Gm Packet PO Not Given DAILY CATE Senna 8.6 - 17.2 mg 09/28/22 07:16 10/09/22 10:10 Senna 8.6 Mg Tablet PO 8.6 mg DAILY PRN Administration Constipation Sertraline HCl 50 mg 09/28/22 10:00 10/10/22 07:29 Sertraline 50 Mg Tablet PO 50 mg DAILY CATE Administration Sodium Chloride 10 ml 09/26/22 20:29 10/10/22 08:36 Sodium Chloride Flush 0.9% 10 Ml Syringe IVP 10 ml PRN PRN Administration NEEDED PER PROVIDER ORDERS Sodium Chloride 10 ml 09/27/22 01:00 10/10/22 07:30 Sodium Chloride Flush 0.9% 10 Ml Syringe IVP 10 ml 0100,0900,1700 CATE Administration Tamsulosin HCl 0.4 mg 09/29/22 09:00 10/10/22 07:29 Tamsulosin 0.4 Mg Capsule PO 0.4 mg DAILY CATE Administration Tramadol HCl 50 mg 10/03/22 18:00 10/09/22 19:32 Tramadol 50 Mg Tablet PO 50 mg Q4HR PRN Administration PAIN Zolpidem Tartrate 5 mg 09/30/22 08:33 10/09/22 20:33 Zolpidem 5 Mg Tablet PO 5 mg QPM PRN Administration Insomnia - Lab Result Fish Bone Diagrams: 10/10/22 06:51 10/10/22 06:51 - Additional Planning My Orders: My Active Orders 10/09/22 10:56 oxyCODONE [Roxicodone] 5 mg PO Q6HR PRN 10/09/22 21:00 carvediloL [Coreg] 3.125 mg PO BID 10/10/22 10:00 Fludrocortisone [Florinef] 0.1 mg PO DAILY 10/11/22 08:00 Spironolactone [Aldactone] 12.5 mg PO MOWEFR Subjective - Subjective Patient Reports: Nausea (Developed nausea after eating pancakes for breakfast, not immediately resolved with Zofran) Objective Vital Signs: Vital Signs - 24 hr 10/09/22 10/09/22 10/10/22 16:00 20:34 00:00 Temperature 36.9 C Heart Rate [ 62 77 Brachial] Respiratory 16 16 Rate Blood Pressure 136/64 H [Left Brachial artery] Blood Pressure 126/87 H [Right Brachial artery] O2 Saturation 97 10/10/22 10/10/22 01:53 08:00 Temperature 37.1 C 36.8 C Heart Rate [ 69 Brachial] Respiratory 16 18 Rate Blood Pressure [Left Brachial artery] Blood Pressure 98/69 [Right Brachial artery] O2 Saturation 94 94 Oxygen O2 Source Room air I&O (Last 24 Hrs): Intake and Output Totals x24h 10/08/22 10/09/22 10/10/22 23:59 23:59 23:59 Intake Total 626 340 315 Balance 626 340 315 General: Alert, Mild distress (from nausea) HEENT: Mucous membr. moist/pink Neck: Supple, No JVD Neuro: Alert, Non Focal Cardiovascular: No murmurs Respiratory: No respiratory distress, Other (Poor air mvm. Large purple hematoma of chest, L arm, and upper abdomen still present) Abdomen: Normal bowel sounds, Soft, No tenderness Extremities: No clubbing, No edema - Results Results: Laboratory Results Specimen Type BLOOD 10/05/22 07:56 WBC 11.6 x10^3/uL (4.8-10.8) H 10/10/22 06:51 RBC 2.71 10^6/uL (4.70-6.10) L 10/10/22 06:51 Hgb 9.1 g/dL (14.0-18.0) L 10/10/22 06:51 Hct 29.2 % (42.0-52.0) L 10/10/22 06:51 MCV 107.7 fL (80.0-94.0) H 10/10/22 06:51 MCH 33.6 pg (27.0-31.0) H 10/10/22 06:51 MCHC 31.2 g/dL (32.0-36.0) L 10/10/22 06:51 RDW 16.0 % (12.0-15.0) H 10/10/22 06:51 Plt Count 202 10^3/uL (130-450) 10/10/22 06:51 MPV 9.9 fL (7.4-11.4) 10/10/22 06:51 Neut # (Auto) 8.9 10^3/uL (1.5-6.6) H 10/10/22 06:51 Lymph # (Auto) 1.5 10^3/uL (1.5-3.5) 10/10/22 06:51 [place] # (Auto) 1.0 10^3/uL (0.0-1.0) 10/10/22 06:51 Eos # (Auto) 0.1 10^3/uL (0.0-0.7) 10/10/22 06:51 Baso # (Auto) 0.0 10^3/uL (0.0-0.1) 10/10/22 06:51 Absolute Nucleated RBC 0.02 x10^3/uL 10/10/22 06:51 Total Counted 100 10/06/22 08:36 Band Neuts % (Manual) 3 % (0-10) 10/06/22 08:36 Abnorm Lymph % (Manual) 0 % 10/06/22 08:36 Metamyelocytes % 1 % (-0) H 10/06/22 08:36 Myelocytes % 2 % (-0) H 10/06/22 08:36 Plasma Cell % (Manual) 2 % 10/05/22 07:56 Nucleated RBC % 0.2 /100WBC 10/10/22 06:51 Neutrophils # (Manual) 8.5 10^3/uL (1.5-6.6) H 10/06/22 08:36 Lymphocytes # (Manual) 1.8 10^3/uL (1.5-3.5) 10/06/22 08:36 Monocytes # (Manual) 1.2 10^3/uL (0.0-1.0) H 10/06/22 08:36 Eosinophils # (Manual) 0.1 10^3/uL (0-0.7) 10/06/22 08:36 Basophils # (Manual) 0.0 10^3/uL (0-0.1) 10/06/22 08:36 Nucleated RBCs 2 % 10/06/22 08:36 Differential Comment MANUAL DIFFERENTIAL 10/06/22 08:36 Manual Slide Review Indicated 10/06/22 08:36 Pathologist Review SEE SEPARATE REPORT 10/05/22 07:56 WBC Morphology 1+ VACUOLA (NORMAL) 10/06/22 08:36 Platelet Estimate NORMAL (130-450,000) (NORMAL) 10/06/22 08:36 Platelet Morphology NORMAL DERIAN (NORMAL) 10/06/22 08:36 RBC Morph Micro Appear 2+ ANISOCYTOSIS (NORMAL) 2+ HYPOCHROMASIA (NORMAL) 1+ POLYCHROMASIA (NORMAL) 10/06/22 08:36 RBC Morph Micro Appear 2+ ANISOCYTOSIS (NORMAL) 2+ HYPOCHROMASIA (NORMAL) 1+ POLYCHROMASIA (NORMAL) 10/06/22 08:36 RBC Morph Micro Appear 2+ ANISOCYTOSIS (NORMAL) 2+ HYPOCHROMASIA (NORMAL) 1+ POLYCHROMASIA (NORMAL) 10/06/22 08:36 PT 13.5 secs (9.9-12.6) H 09/27/22 10:52 INR 1.2 (0.8-1.2) 09/27/22 10:52 Bld Gas Analysis Time 0910/07/22 09:18 Sample Site RIGHT RADIAL 10/07/22 09:18 ABG pH 7.48 (7.35-7.45) H 10/07/22 09:18 ABG pCO2 40 mmHg (34-45) 10/07/22 09:18 ABG pO2 69 mmHg (80-100) L 10/07/22 09:18 ABG HCO3 29.8 mmol/L (22.0-26.0) H 10/07/22 09:18 ABG Total CO2 31.0 MMOL/L (21.0-29.0) H 10/07/22 09:18 ABG O2 Saturation 95 % (94-98) 10/07/22 09:18 ABG Base Excess 6.0 mmol/L (-2.0-3.0) H 10/07/22 09:18 Geovanni Test POSITIVE 10/07/22 09:18 VBG pH 7.338 (7.31-7.41) 09/26/22 16:42 VBG pCO2 46.2 mmHg (41-51) 09/26/22 16:42 VBG pO2 20.8 mmHg (25-47) L 09/26/22 16:42 VBG HCO3 24.3 mmol/L (23-28) 09/26/22 16:42 VBG Total CO2 25.7 mmol/L (24-29) 09/26/22 16:42 VBG O2 Saturation 33.5 % (60-80) L 09/26/22 16:42 VBG Base Excess -1.8 mmol/L (-2 - +2) 09/26/22 16:42 Room Air YES 10/07/22 09:18 Sodium 136 mmol/L (135-145) 10/10/22 06:51 Potassium 4.0 mmol/L (3.5-5.0) 10/10/22 06:51 Chloride 97 mmol/L (101-111) L 10/10/22 06:51 Carbon Dioxide 27 mmol/L (21-32) 10/10/22 06:51 Anion Gap 12.0 (6-13) 10/10/22 06:51 BUN 17 mg/dL (6-20) 10/10/22 06:51 Creatinine 1.0 mg/dL (0.6-1.2) 10/10/22 06:51 Estimated GFR (MDRD) 72 (>89) L 10/10/22 06:51 Glucose 145 mg/dL (70-100) H 10/10/22 06:51 POC Whole Bld Glucose 169 mg/dL (70 - 100) H 10/09/22 11:13 Estimat Average Glucose 137 mg/dL (70-100) H 09/27/22 10:52 Hemoglobin A1c % 6.4 % (4.27-6.07) H 09/27/22 10:52 Lactic Acid 1.3 mmol/L (0.5-2.2) 09/27/22 10:52 Calcium 8.8 mg/dL (8.5-10.3) 10/10/22 06:51 Magnesium 1.8 mg/dL (1.7-2.8) 10/10/22 06:51 Iron 101 ug/dL (45-182) 10/09/22 07:27 TIBC 270 ug/dL (250-450) 10/09/22 07:27 % Saturation 37 % (20-50) 10/09/22 07:27 Transferrin 193 mg/dL (180-329) 10/09/22 07:27 Total Bilirubin 0.7 mg/dL (0.2-1.0) 09/26/22 16:42 AST 37 IU/L (10-42) 09/26/22 16:42 ALT 27 IU/L (10-60) 09/26/22 16:42 Alkaline Phosphatase 43 IU/L (42-121) 09/26/22 16:42 Troponin I High Sens 78.2 ng/L (2.3-19.7) H* 09/28/22 05:25 B-Natriuretic Peptide 291 pg/mL (5-100) H 10/08/22 09:14 Total Protein 7.1 g/dL (6.7-8.2) 09/26/22 16:42 Albumin 3.7 g/dL (3.2-5.5) 09/26/22 16:42 Globulin 3.4 g/dL (2.1-4.2) 09/26/22 16:42 Albumin/Globulin Ratio 1.1 (1.0-2.2) 09/26/22 16:42 Triglycerides 99 mg/dL (-149) 09/29/22 06:12 Cholesterol 72 mg/dL (-199) 09/29/22 06:12 LDL Cholesterol, Calc 28 mg/dL (-129) 09/29/22 06:12 VLDL Cholesterol 20 mg/dL 09/29/22 06:12 HDL Cholesterol 24 mg/dL (60-) L 09/29/22 06:12 LDL/HDL Ratio 1.2 (<3.6) 09/29/22 06:12 Cholesterol/HDL Ratio 3.0 (<5.0) 09/29/22 06:12 Vitamin B12 282 pg/mL (180-914) 09/30/22 07:39 Folate 15.58 ng/mL (5.90 - >24.8) 09/30/22 07:39 Nasal Adenovirus (PCR) NOT DETECTED 09/26/22 16:43 Nasal B. parapertussis DNA (PCR) NOT DETECTED 09/26/22 16:43 Nasal Coronavir 229E PCR NOT DETECTED 09/26/22 16:43 Nasal Coronavir HKU1 PCR NOT DETECTED 09/26/22 16:43 Nasal Coronavir NL63 PCR NOT DETECTED 09/26/22 16:43 Nasal Coronavir OC43 PCR NOT DETECTED 09/26/22 16:43 Nasal Enterovir/Rhinovir PCR NOT DETECTED 09/26/22 16:43 Nasal Influenza B PCR NOT DETECTED 09/26/22 16:43 Nasal Influenza A PCR NOT DETECTED 09/26/22 16:43 Nasal Parainfluen 1 PCR NOT DETECTED 09/26/22 16:43 Nasal Parainfluen 2 PCR NOT DETECTED 09/26/22 16:43 Nasal Parainfluen 3 PCR NOT DETECTED 09/26/22 16:43 Nasal Parainfluen 4 PCR NOT DETECTED 09/26/22 16:43 Nasal RSV (PCR) NOT DETECTED 09/26/22 16:43 Nasal B.pertussis DNA PCR NOT DETECTED 09/26/22 16:43 Nasal C.pneumoniae (PCR) NOT DETECTED 09/26/22 16:43 Leroy Human Metapneumo PCR NOT DETECTED 09/26/22 16:43 Nasal M.pneumoniae (PCR) NOT DETECTED 09/26/22 16:43 Nasal SARS-CoV-2 (PCR) DETECTED A 09/26/22 16:43 - Procedures Procedures: Procedures REPOSITION LEFT UPPER FEMUR WITH INTRAMED FIX, OPEN APPROACH (05/25/16) TRANSFUSE NONAUT FROZEN PLASMA IN PERIPH VEIN, PERC (05/25/16)
[2022-10-10] MEDS: FLUDROCORTISONE 0.1 MG TABLET PO SCH (10:21)
[2022-10-10] MEDS: CALCIUM CARBONATE CHEW 500 MG TABLET PO PRN (17:09)
[2022-10-10] MEDS: ATORVASTATIN 40 MG TABLET PO SCH (20:32)
[2022-10-10] MEDS: ZOLPIDEM 5 MG TABLET PO PRN (20:32)
[2022-10-10] MEDS: ACETAMINOPHEN 325 MG TABLET PO PRN (20:32)
[2022-10-11] MEDS: SODIUM CHLORIDE FLUSH 0.9% 10 ML SYRINGE IVP SCH ×3 (00:06→17:00)
[2022-10-11] MEDS: PANTOPRAZOLE 40 MG TABLET PO SCH (06:08)
[2022-10-11] MEDS ORDERED: SPIRONOLACTONE 25 MG TABLET PO SCH (08:00)
[2022-10-11 08:21] LABS: BASOPHILS % (AUTO) 0.3 %; EOSINOPHILS # (AUTO) 0.1 10^3/uL (0.0-0.7); EOSINOPHILS % (AUTO) 1.1 %; HCT - HEMATOCRIT 27.3 % (42.0-52.0); HGB - HEMOGLOBIN 8.7 g/dL (14.0-18.0); LYMPHOCYTES # (AUTO) 1.1 10^3/uL (1.5-3.5); MEAN CORPUSCULAR HGB CONC 31.9 g/dL (32.0-36.0); MEAN CORPUSCULAR VOLUME 106.6 fL (80.0-94.0); MEAN PLATELET VOLUME 9.7 fL (7.4-11.4); MONOCYTES % (AUTO) 8.2 %; NEUTROPHILS # (AUTO) 9.9 10^3/uL (1.5-6.6); PLT - PLATELET COUNT 166 10^3/uL (130-450); RED BLOOD COUNT 2.56 10^6/uL (4.70-6.10); RED CELL DISTRIBUTION WIDTH 16.1 % (12.0-15.0); WHITE BLOOD COUNT 12.3 x10^3/uL (4.8-10.8)
[2022-10-11] MEDS: metFORMIN 500 MG TABLET PO SCH ×2 (08:29→17:08)
[2022-10-11] MEDS: MIDODRINE 10 MG TABLET PO SCH ×3 (08:30→17:08)
[2022-10-11 08:33] LABS: CALCIUM 8.6 mg/dL (8.5-10.3)
[2022-10-11] MEDS: CYANOCOBALAMIN 500 MCG TABLET PO SCH (09:04)
[2022-10-11] MEDS: CHOLECALCIFEROL 25 MCG TABLET PO SCH (09:04)
[2022-10-11] MEDS: CLOPIDOGREL 75 MG TABLET PO SCH (09:05)
[2022-10-11] MEDS: SERTRALINE 50 MG TABLET PO SCH (09:05)
[2022-10-11] MEDS: TAMSULOSIN 0.4 MG CAPSULE PO SCH (09:05)
[2022-10-11] MEDS: carvediloL 3.125 MG TABLET PO SCH ×2 (09:05→20:37)
[2022-10-11] MEDS: ASPIRIN EC 81 MG TABLET PO SCH (09:06)
[2022-10-11] MEDS: FLUDROCORTISONE 0.1 MG TABLET PO SCH (09:06)
[2022-10-11] MEDS: ACETAMINOPHEN 325 MG TABLET PO PRN ×2 (09:06→18:38)
[2022-10-11] MEDS: polyethylene glycoL 3350 17 GM PACKET PO SCH (09:06)
[2022-10-11] MEDS: DOCUSATE SODIUM 250 MG CAPSULE PO SCH (09:07)
--- NOTE | 2022-10-11 10:44 | PROVIDER PROGRESS NOTE ---
Assessment/Plan - Problem List (1) Orthostatic hypotension Assessment/Plan: We recently stopped his daily Lasix, decreased his Coreg from 6.25 twice daily to 3.125 twice daily, and decreased his daily spironolactone from 25 mg daily to 12.5 mg and to give only on Friday. He is on Midodrine 10 mg TID with meals, for several days now We started Florinef 0.1 mg daily yesterday morning 10/10 to help BP. I explained to patient and at bedside that this will cause salt and water retention therefore we need to monitor him, because of his CHF history, to assure there is not excessive salt and water retention to cause pulmonary edema. His a.m. cortisol level is good at 20, therefore not Addisonian. I suspect he has autonomic dysfunction from DM. I discussed that Dx with at bedside yesterday and gave her literature on it, when she asked what else can be done. I reviewed his labs and VS. Today: Pre-activity, sitting - 99/63 and 76 bpm (without donned TEDHose) and 111/64 and 82 bpm (with donned TEDHose); Mid- activity, standing - 90/57 and 85 bpm; Post-activity, sitting - 113/74 and 93 bpm Plan: Will tentatively plan his discharge to SNF tomorrow Continue with the Tamsulosin which he needs for prostate trouble, dose will not change Continue with Midodrine which is at maximum dose, the new Florinef, and the decreased cardiac med doses Continue with AILYN compression stockings on the morning, off at at bedtime 2. Anemia This patient has had a stable but low hemoglobin of 9.5-10. I reviewed his labs. His Iron stores, B12 and Folate levels are all normal Plan: I suspect he has anemia of chronic disease 3. Fall during current hospitalization Qualifiers: Encounter type: subsequent encounter Qualified Code(s): W19.XXXD - Unspecified fall, subsequent encounter; Y92.239 - Unspecified place in hospital as the place of occurrence of the external cause Assessment/Plan: On 10/08 at approximately 2300, the patient was sitting at the edge of the bed dangling, there was a bedside table in front of him which he pushed forward and apparently tried to stand on his own. He was found on the ground and had a left elbow and left knee skin tear. I am not sure if a fingerstick glu check was done. He underwent head CT and C-spine CT and both were negative for any trauma or new problems. We cancelled sliding scale insulin coverage as he is on a Reg diet. Plan: Continue to manage his orthostatsis 4. Hematoma of breast He still has chest wall pain from this hematoma on his breast, sternum I think this was from coughing while on the anticoagulation for his NSTEMI when he was on therapeutic Lovenox, Motrin, aspirin, and Plavix. His weight was accidently recorded as being 193 kg and he received Lovenox for that weight. Then in 1 day alone, the previous Hospitalist observed large hematomas/ecchymoses spontaneously forming over his triceps and forearms. Once we then got his pain from the chest wall controlled, he seemed to be breathing better and mobilizing more secretions. Plan: Continue pain meds as needed 5. Hematoma of chest wall As in #3 6. Hematoma of abdominal wall. As in #3 7. Chronic systolic heart failure. He is not overloaded from fluid intake. He has not been on maintenance IV fluids since October 01. Right now all of his intake is po and IV flushes. He is on Coreg 6.25 p.o. twice daily. Minimal dose of Lasix 20 p.o. daily. Small dose of Aldactone at 25 p.o. daily. Unable to tolerate even 2.5 mg of enalapril a day. Yesterday, I stopped his daily Lasix, decreased his Coreg from 6.25 twice daily to 3.125 twice daily, and decreased his daily spironolactone from 25 mg daily to 12.5 mg and to give only on Friday. Plan: Continue these meds and the holding parameters in place 8. NSTEMI. He had CP before adm along with SOB and ruled in for an NSTEMI. [facility] have asked [facility] twice now for records. His Echo shows moderate global hypokinesis with an ejection fraction of 40%, and valves were not visualized. Right ventricle was not visualized. He had basal to mid inferior wall and basal to mid inferolateral wall segments that was thinned and akinetic. He had basal to mid anterolateral wall that was severely hypokinetic to akinetic. Plan: Continue with cardiac med changes as described in #1, holding parameters are in place 9. Type 2 diabetes mellitus Glu is controlled on metformin I cancelled sliding scale insulin coverage since he is on a Reg diet. Plan: Fingersticks will be prn. 10. Pleuritic chest pain Slowly improving 11. Insomnia Somewhat improved with no interruptions for vital signs and with sleeping med given 12. Heartburn He continues to have what he calls heartburn and today nausea Plan: Continue Tums as needed and daily Protonix oral Will continue iv or TL Zofran prn 13. Unspecified Protein calorie malnutrition His diabetic diet has been changed to regular diet because of his extreme only limited desire to eat 14. Acute respiratory failure with hypoxia Resolved This is from a combination of heart failure, COVID, and COPD. He has gone up and down with his oxygen needs. At times he is actually on room air. Then he goes back up to needing oxygen. His Echo shows moderate global hypokinesis with an ejection fraction of 40%, and valves were not visualized. Right ventricle was not visualized. He had basal to mid inferior wall and basal to mid inferolateral wall segments that was thinned and akinetic. He had basal to mid anterolateral wall that was severely hypokinetic to akinetic. He teeters between almost being ready to go to a correction facility for rehab to worsening of chronic problems such as hypoxia, and orthostatic hypotension. Plan: Continue treating all his clinic current comorbidities, and his target O2 saturation is 90% or higher 15. COVID-19 pneumonia Resolved. He has been off of contact isolation for several days. - Current Meds Current Meds: Current Medications Generic Name Dose Route Start Last Admin Trade Name Flor PRN Reason Stop Dose Admin Acetaminophen 650 mg 09/26/22 20:29 10/11/22 09:06 Acetaminophen 325 Mg Tablet PO 650 mg Q4HR PRN Administration Pain 1 to 4, or Fever Al Hydroxide/Mg Hydroxide 30 ml 10/07/22 15:06 10/07/22 20:43 Mag Hydrox/Al Hydrox/Simeth 30 Ml Udc PO 30 ml Q4HR PRN Administration INDIGESTION Albuterol/Ipratropium 3 ml 09/26/22 20:32 10/06/22 15:11 Ipratropium/Albuterol 3 Ml Neb INH 3 ml Q4HR PRN Administration Wheezing Aspirin 81 mg 09/27/22 13:40 10/11/22 09:06 Aspirin Ec 81 Mg Tablet PO 81 mg DAILY CATE Administration Atorvastatin Calcium 40 mg 09/27/22 21:00 10/10/22 20:32 Atorvastatin 40 Mg Tablet PO 40 mg QPM CATE Administration Calcium Carbonate/Glycine 500 mg 09/29/22 07:58 10/10/22 17:09 Calcium Carbonate Chew 500 Mg Tablet PO 500 mg TID PRN Administration Heartburn Carvedilol 3.125 mg 10/09/22 21:00 10/11/22 09:05 Carvedilol 3.125 Mg Tablet PO 3.125 mg BID CATE Administration Cholecalciferol 50 mcg 10/01/22 09:00 10/11/22 09:04 Cholecalciferol 25 Mcg Tablet PO 50 mcg DAILY [facility] Administration Clopidogrel Bisulfate 75 mg 09/28/22 10:00 10/11/22 09:05 Clopidogrel 75 Mg Tablet PO 75 mg DAILY [facility]ATE Administration Cyanocobalamin 500 mcg 09/30/22 17:00 10/11/22 09:04 Cyanocobalamin 500 Mcg Tablet PO 500 mcg DAILY [facility] Administration Docusate Sodium 250 - 500 mg 10/03/22 09:00 10/11/22 09:07 Docusate Sodium 250 Mg Capsule PO Not Given DAILY [facility] Fludrocortisone Acetate 0.1 mg 10/10/22 10:00 10/11/22 09:06 Fludrocortisone 0.1 Mg Tablet PO 0.1 mg DAILY [facility] Administration Lidocaine 1 patch 09/29/22 19:11 10/05/22 11:47 Lidocaine Patch 5% TOP 1 patch DAILY PRN Administration PAIN Metformin HCl 500 mg 09/30/22 08:00 10/11/22 08:29 Metformin 500 Mg Tablet PO 500 mg BIDWM [facility] Administration Midodrine 10 mg 10/07/22 17:00 10/11/22 08:30 Midodrine 10 Mg Tablet PO 10 mg TIDWM [facility] Administration Ondansetron HCl 4 mg 09/26/22 20:29 10/10/22 08:36 Ondansetron 4 Mg/2 Ml Vial IVP 4 mg Q6HR PRN Administration Nausea / Vomiting Oxycodone HCl 5 mg 10/09/22 10:56 10/09/22 14:57 Oxycodone 5 Mg Tablet PO 5 mg Q6HR PRN Administration PAIN 5-7 Pantoprazole Sodium 40 mg 09/30/22 07:00 10/11/22 06:08 Pantoprazole 40 Mg Tablet PO 40 mg QDAC [facility] Administration Polyethylene Glycol 17 gm 09/28/22 09:00 10/11/22 09:06 Polyethylene Glycol 3350 17 Gm Packet PO Not Given DAILY [facility]ATE Senna 8.6 - 17.2 mg 09/28/22 07:16 10/09/22 10:10 Senna 8.6 Mg Tablet PO 8.6 mg DAILY PRN Administration Constipation Sertraline HCl 50 mg 09/28/22 10:00 10/11/22 09:05 Sertraline 50 Mg Tablet PO 50 mg DAILY [facility] Administration Sodium Chloride 10 ml 09/26/22 20:29 10/10/22 08:36 Sodium Chloride Flush 0.9% 10 Ml Syringe IVP 10 ml PRN PRN Administration NEEDED PER PROVIDER ORDERS Sodium Chloride 10 ml 09/27/22 01:00 10/11/22 09:07 Sodium Chloride Flush 0.9% 10 Ml Syringe IVP 10 ml 0100,0900,1700 [facility] Administration Spironolactone 12.5 mg 10/11/22 08:00 10/11/22 09:05 Spironolactone 25 Mg Tablet PO 12.5 mg MOWEFR [facility] Administration Tamsulosin HCl 0.4 mg 09/29/22 09:00 10/11/22 09:05 Tamsulosin 0.4 Mg Capsule PO 0.4 mg DAILY [facility] Administration Tramadol HCl 50 mg 10/03/22 18:00 10/09/22 19:32 Tramadol 50 Mg Tablet PO 50 mg Q4HR PRN Administration PAIN Zolpidem Tartrate 5 mg 09/30/22 08:33 10/10/22 20:32 Zolpidem 5 Mg Tablet PO 5 mg QPM PRN Administration Insomnia - Lab Result Fish Bone Diagrams: 10/11/22 08:15 10/11/22 08:15 - Additional Planning My Orders: My Active Orders 10/10/22 10:00 Fludrocortisone [Florinef] 0.1 mg PO DAILY 10/11/22 08:00 Spironolactone [Aldactone] 12.5 mg PO MOWEFR Subjective - Subjective Patient Reports: Feeling Better (Has more energy today, has an appetite today. He is happy to be sitting in his recliner chair which is in the hallway near a lori window.) Objective Vital Signs: Vital Signs - 24 hr 10/10/22 10/11/22 10/11/22 15:45 02:13 07:57 Temperature 37.2 C 37.1 C 36.9 C Heart Rate [ 64 79 82 Brachial] Respiratory 16 18 Rate Blood Pressure 97/50 L 112/70 [Right Brachial artery] Blood Pressure 120/71 [Right Radial artery] O2 Saturation 92 92 Oxygen O2 Source Room air I&O (Last 24 Hrs): Intake and Output Totals x24h 10/09/22 10/10/22 10/11/22 23:59 23:59 23:59 Intake Total 340 815 0 Balance 340 815 0 General: Alert, Oriented x3, Other (Appears tired, is pale.) HEENT: Mucous membr. moist/pink Neck: Supple, No JVD Neuro: Alert, Non Focal Cardiovascular: No murmurs Respiratory: No respiratory distress Abdomen: Soft Extremities: No edema - Results Results: Laboratory Results Specimen Type BLOOD 10/05/22 07:56 WBC 12.3 x10^3/uL (4.8-10.8) H 10/11/22 08:15 RBC 2.56 10^6/uL (4.70-6.10) L 10/11/22 08:15 Hgb 8.7 g/dL (14.0-18.0) L 10/11/22 08:15 Hct 27.3 % (42.0-52.0) L 10/11/22 08:15 MCV 106.6 fL (80.0-94.0) H 10/11/22 08:15 MCH 34.0 pg (27.0-31.0) H 10/11/22 08:15 MCHC 31.9 g/dL (32.0-36.0) L 10/11/22 08:15 RDW 16.1 % (12.0-15.0) H 10/11/22 08:15 Plt Count 166 10^3/uL (130-450) 10/11/22 08:15 MPV 9.7 fL (7.4-11.4) 10/11/22 08:15 Neut # (Auto) 9.9 10^3/uL (1.5-6.6) H 10/11/22 08:15 Lymph # (Auto) 1.1 10^3/uL (1.5-3.5) L 10/11/22 08:15 Posey # (Auto) 1.0 10^3/uL (0.0-1.0) 10/11/22 08:15 Eos # (Auto) 0.1 10^3/uL (0.0-0.7) 10/11/22 08:15 Baso # (Auto) 0.0 10^3/uL (0.0-0.1) 10/11/22 08:15 Absolute Nucleated RBC 0.00 x10^3/uL 10/11/22 08:15 Total Counted 100 10/06/22 08:36 Band Neuts % (Manual) 3 % (0-10) 10/06/22 08:36 Abnorm Lymph % (Manual) 0 % 10/06/22 08:36 Metamyelocytes % 1 % (-0) H 10/06/22 08:36 Myelocytes % 2 % (-0) H 10/06/22 08:36 Plasma Cell % (Manual) 2 % 10/05/22 07:56 Nucleated RBC % 0.0 /100WBC 10/11/22 08:15 Neutrophils # (Manual) 8.5 10^3/uL (1.5-6.6) H 10/06/22 08:36 Lymphocytes # (Manual) 1.8 10^3/uL (1.5-3.5) 10/06/22 08:36 Monocytes # (Manual) 1.2 10^3/uL (0.0-1.0) H 10/06/22 08:36 Eosinophils # (Manual) 0.1 10^3/uL (0-0.7) 10/06/22 08:36 Basophils # (Manual) 0.0 10^3/uL (0-0.1) 10/06/22 08:36 Nucleated RBCs 2 % 10/06/22 08:36 Differential Comment MANUAL DIFFERENTIAL 10/06/22 08:36 Manual Slide Review Indicated 10/06/22 08:36 Pathologist Review SEE SEPARATE REPORT 10/05/22 07:56 WBC Morphology 1+ VACUOLA (NORMAL) 10/06/22 08:36 Platelet Estimate NORMAL (130-450,000) (NORMAL) 10/06/22 08:36 Platelet Morphology NORMAL DERIAN (NORMAL) 10/06/22 08:36 RBC Morph Micro Appear 2+ ANISOCYTOSIS (NORMAL) 2+ HYPOCHROMASIA (NORMAL) 1+ POLYCHROMASIA (NORMAL) 10/06/22 08:36 RBC Morph Micro Appear 2+ ANISOCYTOSIS (NORMAL) 2+ HYPOCHROMASIA (NORMAL) 1+ POLYCHROMASIA (NORMAL) 10/06/22 08:36 RBC Morph Micro Appear 2+ ANISOCYTOSIS (NORMAL) 2+ HYPOCHROMASIA (NORMAL) 1+ POLYCHROMASIA (NORMAL) 10/06/22 08:36 PT 13.5 secs (9.9-12.6) H 09/27/22 10:52 INR 1.2 (0.8-1.2) 09/27/22 10:52 Bld Gas Analysis Time 92410/07/22 09:18 Sample Site RIGHT RADIAL 10/07/22 09:18 ABG pH 7.48 (7.35-7.45) H 10/07/22 09:18 ABG pCO2 40 mmHg (34-45) 10/07/22 09:18 ABG pO2 69 mmHg (80-100) L 10/07/22 09:18 ABG HCO3 29.8 mmol/L (22.0-26.0) H 10/07/22 09:18 ABG Total CO2 31.0 MMOL/L (21.0-29.0) H 10/07/22 09:18 ABG O2 Saturation 95 % (94-98) 10/07/22 09:18 ABG Base Excess 6.0 mmol/L (-2.0-3.0) H 10/07/22 09:18 Geovanni Test POSITIVE 10/07/22 09:18 VBG pH 7.338 (7.31-7.41) 09/26/22 16:42 VBG pCO2 46.2 mmHg (41-51) 09/26/22 16:42 VBG pO2 20.8 mmHg (25-47) L 09/26/22 16:42 VBG HCO3 24.3 mmol/L (23-28) 09/26/22 16:42 VBG Total CO2 25.7 mmol/L (24-29) 09/26/22 16:42 VBG O2 Saturation 33.5 % (60-80) L 09/26/22 16:42 VBG Base Excess -1.8 mmol/L (-2 - +2) 09/26/22 16:42 Room Air YES 10/07/22 09:18 Sodium 132 mmol/L (135-145) L 10/11/22 08:15 Potassium 4.0 mmol/L (3.5-5.0) 10/11/22 08:15 Chloride 94 mmol/L (101-111) L 10/11/22 08:15 Carbon Dioxide 26 mmol/L (21-32) 10/11/22 08:15 Anion Gap 12.0 (6-13) 10/11/22 08:15 BUN 17 mg/dL (6-20) 10/11/22 08:15 Creatinine 1.0 mg/dL (0.6-1.2) 10/11/22 08:15 Estimated GFR (MDRD) 72 (>89) L 10/11/22 08:15 Glucose 180 mg/dL (70-100) H 10/11/22 08:15 POC Whole Bld Glucose 169 mg/dL (70 - 100) H 10/09/22 11:13 Estimat Average Glucose 137 mg/dL (70-100) H 09/27/22 10:52 Hemoglobin A1c % 6.4 % (4.27-6.07) H 09/27/22 10:52 Lactic Acid 1.3 mmol/L (0.5-2.2) 09/27/22 10:52 Calcium 8.6 mg/dL (8.5-10.3) 10/11/22 08:15 Magnesium 1.8 mg/dL (1.7-2.8) 10/10/22 06:51 Iron 101 ug/dL (45-182) 10/09/22 07:27 TIBC 270 ug/dL (250-450) 10/09/22 07:27 % Saturation 37 % (20-50) 10/09/22 07:27 Transferrin 193 mg/dL (180-329) 10/09/22 07:27 Total Bilirubin 0.7 mg/dL (0.2-1.0) 09/26/22 16:42 AST 37 IU/L (10-42) 09/26/22 16:42 ALT 27 IU/L (10-60) 09/26/22 16:42 Alkaline Phosphatase 43 IU/L (42-121) 09/26/22 16:42 Troponin I High Sens 78.2 ng/L (2.3-19.7) H* 09/28/22 05:25 B-Natriuretic Peptide 291 pg/mL (5-100) H 10/08/22 09:14 Total Protein 7.1 g/dL (6.7-8.2) 09/26/22 16:42 Albumin 3.7 g/dL (3.2-5.5) 09/26/22 16:42 Globulin 3.4 g/dL (2.1-4.2) 09/26/22 16:42 Albumin/Globulin Ratio 1.1 (1.0-2.2) 09/26/22 16:42 Triglycerides 99 mg/dL (-149) 09/29/22 06:12 Cholesterol 72 mg/dL (-199) 09/29/22 06:12 LDL Cholesterol, Calc 28 mg/dL (-129) 09/29/22 06:12 VLDL Cholesterol 20 mg/dL 09/29/22 06:12 HDL Cholesterol 24 mg/dL (60-) L 09/29/22 06:12 LDL/HDL Ratio 1.2 (<3.6) 09/29/22 06:12 Cholesterol/HDL Ratio 3.0 (<5.0) 09/29/22 06:12 Vitamin B12 282 pg/mL (180-914) 09/30/22 07:39 Folate 15.58 ng/mL (5.90 - >24.8) 09/30/22 07:39 Cortisol AM Sample 20.5 ug/dL 10/11/22 08:15 Nasal Adenovirus (PCR) NOT DETECTED 09/26/22 16:43 Nasal B. parapertussis DNA (PCR) NOT DETECTED 09/26/22 16:43 Nasal Coronavir 229E PCR NOT DETECTED 09/26/22 16:43 Nasal Coronavir HKU1 PCR NOT DETECTED 09/26/22 16:43 Nasal Coronavir NL63 PCR NOT DETECTED 09/26/22 16:43 Nasal Coronavir OC43 PCR NOT DETECTED 09/26/22 16:43 Nasal Enterovir/Rhinovir PCR NOT DETECTED 09/26/22 16:43 Nasal Influenza B PCR NOT DETECTED 09/26/22 16:43 Nasal Influenza A PCR NOT DETECTED 09/26/22 16:43 Nasal Parainfluen 1 PCR NOT DETECTED 09/26/22 16:43 Nasal Parainfluen 2 PCR NOT DETECTED 09/26/22 16:43 Nasal Parainfluen 3 PCR NOT DETECTED 09/26/22 16:43 Nasal Parainfluen 4 PCR NOT DETECTED 09/26/22 16:43 Nasal RSV (PCR) NOT DETECTED 09/26/22 16:43 Nasal B.pertussis DNA PCR NOT DETECTED 09/26/22 16:43 Nasal C.pneumoniae (PCR) NOT DETECTED 09/26/22 16:43 Leroy Human Metapneumo PCR NOT DETECTED 09/26/22 16:43 Nasal M.pneumoniae (PCR) NOT DETECTED 09/26/22 16:43 Nasal SARS-CoV-2 (PCR) DETECTED A 09/26/22 16:43 - Procedures Procedures: Procedures REPOSITION LEFT UPPER FEMUR WITH INTRAMED FIX, OPEN APPROACH (05/25/16) TRANSFUSE NONAUT FROZEN PLASMA IN PERIPH VEIN, PERC (05/25/16)
[2022-10-11] MEDS: ZOLPIDEM 5 MG TABLET PO PRN (20:37)
[2022-10-11] MEDS: ATORVASTATIN 40 MG TABLET PO SCH (20:37)
[2022-10-12] MEDS: SODIUM CHLORIDE FLUSH 0.9% 10 ML SYRINGE IVP SCH ×2 (01:34→08:05)
[2022-10-12] MEDS: PANTOPRAZOLE 40 MG TABLET PO SCH (06:45)
--- NOTE | 2022-10-12 07:58 | DISCHARGE SUMMARY ---
Discharge Summary Admit Date: 09/26/22 Discharge Date: 10/12/22 Discharging Provider: Dr Kia Varela Primary Care Provider: Dr Denilson Sanchez Code Status: Do Not Attempt Resuscitation Condition at Discharge: Fair Discharge Disposition: 03 SNF DC/Xfer - HPI History of Present Illness: Mr Khan is an 82 yo male with hx CAD, CHF (per report EF 25% in 2016), HLD. Presents to ER with c/o weakness, unable to stand from using bathroom. Feeling dizzy and lightheaded with chest pressure earlier today. Pt denies any chest pain at this time, reports some chest discomfort with deep inspiration. States that he has been feeling progressively short of breath over the past 2-3 days, worse with activity and has a cough. Denies fevers, chills, sputum production. Denies sick contacts. Reports he has been vaccinated against COVID. Does not use home O2. Pt reports he was taken off of coumadin years ago, unsure why he was on it. He does not take ASA or plavix. States he was advised to take tylenol only. Denies any history of bleeding complications or renal disease. Pt wants to be a DNR. Labs and work up were reviewed and he has the following: NSTEMI -History of systolic CHF, EF 25% on echo 2016, reportedly ischemic event last year did not require PCI -Suspect demand ischemia in setting of hypotension, acute infection, recommend ASA and anticoagulation vs true CO given the chest pain Plan: -Pt received Lovenox therapeutic dose in ER, continue this -ASA 325 mg administered in ER, continue. *Pt states he has been advised to "take Tylenol and avoid ASA/Plavix" - rec further consultation with his cardiol ogist at the [facility] regarding antiplatelet therapy use. -cont his cardiac meds, get list from -Echo, ordered COVID 19 infection -CTA neg for PE, no evidence of infiltrate/consolidation, no pulm vasc congestion -was desaturating, then O2 sats 100% on 3 L NC - will wean off as tolerate Plan: -DuoNebs PRN -Remdesivir and Decadron if indicated -Isolation Lactic acidosis -Seen in setting of hypotension at admission, improved with IV fluids -Hx lactic acidosis unknown etiology in 2016 Plan: -Trend labs - HOSPITAL COURSE Hospital Course: 1. Acute respiratory failure with hypoxia This was from COVID pneumonia and CHF. No supplemental O2 at discharge. 2. COVID-19 pneumonia Resolved, got Remdesivir and Decadron. He has been off of contact isolation for several days. 3. NSTEMI He had CP before admission along with SOB and ruled in for an NSTEMI, not demand ischemia. His Echo showed LVEF of 40%. He was treated with several days of therapeutic Lovenox BID, and aspirin and Plavix were resumed. These caused a large chest wall hematoma. Also he is on statin, Coreg and Spironolacone, no Lasix as he became very orthostatic (see #9). He needs [facility]. 4. Chronic systolic heart failure As in #3. His Echo showed LVEF of 40%. He is now on low doses of cardiac meds du e to orthostatic hypotension 5. Hematoma of breast This developed from coughing while on the anticoagulation for his NSTEMI, after he got several days of Lovenox BID, and is on aspirin, and Plavix. 6. Hematoma of chest wall As in #5 7. Hematoma of abdominal wall As in #5 8. Pleuritic chest pain He gets pleuritic pain from his large hematoma on his chest wall and abdomimal wall 9. Orthostatic hypotension He is on max dose Midodrine, needs daily TEDS stockings put on in a.m. off at bedtime, is also on daily Florinef, and is on lowest doses of cardiac meds. 10. Fall during current hospitalization Likely from orthostasis. Head CT and C-spine were cleared and meds further adjusted to manage his orthostasis. 11. Type 2 diabetes mellitus Glu is controlled on metformin and he is on a Regular (not a Diabetic) diet. Fingerstick checks are to check for hypoglycemia, and a sliding scale of Insulin was stopped. 12. Anemia of chronic disease His Hgb was stable at 9-10. He had a normal Iron panel, normal B12 and Folate levels. 13. Insomnia Somewhat improved when no interruptions for vital signs at night and with taking a sleeping med 14. Heartburn He requests warm food and milk, to help these sx. Also Sandra WHYTE ordered prn for nausea 15. Unspecified Protein calorie malnutrition His diabetic diet has been changed to regular diet because of his limited desire to eat only specific foods. 16. BPH He remains on his Tamsolusin 17. Anxiety We continued his Zoloft. He gets nausea when anxious. Ativan ordered to use prn 18. Lung nodule On the CT scan of the chest he had a 1 cm right upper lobe pulmonary nodule. Pt needs to talk with his doctor about repeat imaging to assess. - ALLERGIES Allergies/Adverse Reactions: Allergies Allergy/AdvReac Type Severity Reaction Status Date / Time heparin AdvReac Unknown Unknown Verified 09/29/22 15:57 - MEDICATIONS Home Medications: Ambulatory Orders Medication Instructions Recorded Confirmed Atorvastatin Calcium 40 mg PO QPM 05/26/16 09/27/22 Cholecalciferol [Vitamin D3] 50 mcg PO DAILY 09/27/22 09/27/22 Sertraline [Zoloft] 50 mg PO DAILY 09/27/22 09/27/22 Tamsulosin [Flomax] 1 cap PO DAILY 09/27/22 09/27/22 Acetaminophen [Tylenol] 650 mg PO Q4HR PRN tab 10/10/22 Aspirin EC [Ecotrin] 81 mg PO DAILY #30 tab 10/10/22 Calcium Carbonate [Tums (Calcium 500 mg PO TID PRN #90 tab 10/10/22 Carbonate 500mg)] Clopidogrel [Plavix] 75 mg PO DAILY #30 tab 10/10/22 Cyanocobalamin [Vitamin B-12] 500 mcg PO DAILY #30 tab 10/10/22 Docusate Sodium 250Mg Capsule 250 - 500 mg PO DAILY #60 cap 10/10/22 [Colace 250Mg Capsule] Furosemide [Lasix] 20 mg PO DAILY PRN #15 tab 10/10/22 LORazepam [Ativan] 0.5 mg PO Q8H PRN #15 tablet 10/10/22 Mag Hydrox/Al Hydrox/Simeth 30 ml PO Q4HR PRN #60 ea 10/10/22 [Mylanta Plus] Midodrine [ProAmantine] 10 mg PO TIDWM #90 tab 10/10/22 ONDANSETRON ODT Prepack 2 [ZOFRAN 4 mg TL Q6H PRN #30 tablet 10/10/22 ODT Prepack 2] Pantoprazole [Protonix] 40 mg PO QDAC #30 tab 10/10/22 Spironolactone [Aldactone] 12.5 mg PO MOWEFR #9 tab 10/10/22 Zolpidem [Ambien] 5 mg PO QPM PRN #30 tab 10/10/22 carvediloL [Coreg] 3.125 mg PO BID #60 tab 10/10/22 metFORMIN [Glucophage] 500 mg PO BIDWM #60 tab 10/10/22 oxyCODONE [Roxicodone] 5 mg PO Q6HR PRN #20 tab 10/10/22 traMADol [Ultram] 50 mg PO Q4HR PRN #20 tab 10/10/22 Fludrocortisone [Florinef] 0.1 mg PO DAILY #30 tab 10/11/22 - PHYSICAL EXAM AT DISCHARGE General Appearance: positive: No acute distress, Alert, Lethargic (and doses off to sleep alot, in sitting position (family says that is chronic and not new)), Other (Thin, frail man) Eyes Bilateral: positive: Normal inspection, No lid inflammation ENT: positive: ENT inspection nml, No signs of dehydration Neck: positive: Nml inspection, No JVD Respiratory: positive: No respiratory distress, Other (Poor air movement) Cardiovascular: positive: Regular rate & rhythm, No murmur Abdomen: positive: Non-tender, Nml bowel sounds, No distention Skin: positive: Warm, Dry, Pallor Extremities: positive: Non-tender, No pedal edema Neurologic/Psychiatric: positive: Oriented x3, Other (Slow to answer (needs to process), then speaks appropriately) - LABS Result Diagrams: 10/11/22 08:15 10/11/22 08:15 - DIAGNOSTIC IMAGING Diagnostic Imaging Results: Final report reviewed - FOLLOW UP Follow Up: See PCP aftrer discharge from SNF - TIME SPENT Time Spent in Discharge (Minutes): 70
[2022-10-12 08:02] VITALS: BP 103/87
[2022-10-12] MEDS: FLUDROCORTISONE 0.1 MG TABLET PO SCH (08:03)
[2022-10-12] MEDS: CLOPIDOGREL 75 MG TABLET PO SCH (08:03)
[2022-10-12] MEDS: CHOLECALCIFEROL 25 MCG TABLET PO SCH (08:03)
[2022-10-12] MEDS: CYANOCOBALAMIN 500 MCG TABLET PO SCH (08:04)
[2022-10-12] MEDS: carvediloL 3.125 MG TABLET PO SCH (08:04)
[2022-10-12] MEDS: DOCUSATE SODIUM 250 MG CAPSULE PO SCH (08:04)
[2022-10-12] MEDS: metFORMIN 500 MG TABLET PO SCH (08:04)
[2022-10-12] MEDS: MIDODRINE 10 MG TABLET PO SCH (08:04)
[2022-10-12] MEDS: TAMSULOSIN 0.4 MG CAPSULE PO SCH (08:04)
[2022-10-12] MEDS: SERTRALINE 50 MG TABLET PO SCH (08:04)
[2022-10-12] MEDS: ASPIRIN EC 81 MG TABLET PO SCH (08:04)
[2022-10-12] MEDS: polyethylene glycoL 3350 17 GM PACKET PO SCH (08:05)
[2022-10-12] MEDS ORDERED: LORazepam 0.5 MG TABLET PO STA (08:34)
[2022-10-12] MEDS: CALCIUM CARBONATE CHEW 500 MG TABLET PO PRN (09:38)
== END 2022-10-12 10:11 | DRG 177 ==
LOC: EDUNIT# → ED 16:26 → MS2 20:29
PROVIDERS: ADMIT Student in an Organized Health Care Education/Training Program; ATTEND Internal Medicine
PROC: XW033E5 Introduction of Remdesivir Anti-infective into Peripheral Vein, Percutaneous Approach, New Technology Group 5 (ICD-10-PCS; principal; 2022-09-27)
PROC: 3E0333Z Introduction of Anti-inflammatory into Peripheral Vein, Percutaneous Approach (ICD-10-PCS; 2022-09-27)
DX: U07.1 COVID-19 (principal); I21.4 Non-ST elevation (NSTEMI) myocardial infarction; J12.82 Pneumonia due to coronavirus disease 2019; J96.01 Acute respiratory failure with hypoxia; I50.22 Chronic systolic (congestive) heart failure; E87.20 Acidosis, unspecified; E46 Unspecified protein-calorie malnutrition; I11.0 Hypertensive heart disease with heart failure; S20.00XA Contusion of breast, unspecified breast, initial encounter; S20.219A Contusion of unspecified front wall of thorax, initial encounter; R07.81 Pleurodynia; I95.1 Orthostatic hypotension; E11.65 Type 2 diabetes mellitus with hyperglycemia; D63.8 Anemia in other chronic diseases classified elsewhere; G47.00 Insomnia, unspecified; R12 Heartburn; F41.9 Anxiety disorder, unspecified; R91.1 Solitary pulmonary nodule; R53.1 Weakness; I25.10 Atherosclerotic heart disease of native coronary artery without angina pectoris; Z66 Do not resuscitate; E78.00 Pure hypercholesterolemia, unspecified; F32.A Depression, unspecified; S00.412A Abrasion of left ear, initial encounter; W18.11XA Fall from or off toilet without subsequent striking against object, initial encounter; I44.0 Atrioventricular block, first degree; E66.9 Obesity, unspecified; N40.1 Benign prostatic hyperplasia with lower urinary tract symptoms; N39.498 Other specified urinary incontinence; R63.0 Anorexia; R41.89 Other symptoms and signs involving cognitive functions and awareness; R23.3 Spontaneous ecchymoses; T45.511A Poisoning by anticoagulants, accidental (unintentional), initial encounter; Y92.239 Unspecified place in hospital as the place of occurrence of the external cause; R05.9 Cough, unspecified; H91.90 Unspecified hearing loss, unspecified ear; S51.012A Laceration without foreign body of left elbow, initial encounter; S81.012A Laceration without foreign body, left knee, initial encounter; W06.XXXA Fall from bed, initial encounter; Y92.230 Patient room in hospital as the place of occurrence of the external cause; S30.1XXA Contusion of abdominal wall, initial encounter; Z79.84 Long term (current) use of oral hypoglycemic drugs; Y92.002 Bathroom of unspecified non-institutional (private) residence as the place of occurrence of the external cause; I25.2 Old myocardial infarction; I69.318 Other symptoms and signs involving cognitive functions following cerebral infarction; Z91.81 History of falling; Z68.30 Body mass index [BMI] 30.0-30.9, adult; I69.398 Other sequelae of cerebral infarction
CPT/HCPCS: 36415; 36600; 70450; 71045; 71275; 72125; 80048; 80053; 80061; 82533; 82607; 82746; 82803; 83036; 83540; 83605; 83735; 83880; 84466; 84484; 85025; 85610; 87633; 93005; 93306; 94640; 96372; 97110; 97116; 97163; 97166; 97530; 97535; 99285; A9270; J1170; J1650; J3490; J8540; Q9967; 83721